=== PATIENT | male | born 1970 | race Caucasian/White ===

== ENCOUNTER 2018-03-05 12:50 | Inpatient (IN) | payer OTHER ==
[2018-03-04 23:00] VITALS: BP 105/62
[~2018-03-05] VITALS: Ht 182.9 cm; Wt 98.9 kg
[~2018-03-05 12:50] MED LIST: LIDOCAINE 2% 100 MG/5 ML SYRINGE. ONE; SUCCINYLCHOLINE 200 MG/10 ML VIAL. ONE
[2018-03-05] MEDS ORDERED: IV NORMAL SALINE 1000ML BAG 1,000 ML IV SCH (13:37)
[2018-03-05] MEDS ORDERED: IOHEXOL 300 MG/ML 100ML VIAL. IV ONE (13:45)
[2018-03-05] MEDS ORDERED: fentaNYL PF VIAL 100 MCG/2 ML VIAL IV ONE (13:45)
[2018-03-05] MEDS ORDERED: FAMOTIDINE 20 MG/2 ML VIAL IVP ONE (13:45)
[2018-03-05] MEDS ORDERED: ONDANSETRON PF 4 MG/2 ML VIAL. IV ONE (13:45)
[2018-03-05 13:59] LABS: BASO % 0 % (0-3); EOS # 0.1 x10^3/uL (0.0-0.7); EOS % 1 % (0-3); HEMATOCRIT 43.4 % (39.0-53.0); LYMPH # 0.9 x10^3/uL (1.0-4.8); LYMPH % 13 % (24-48); MEAN CORPUSCULAR HEMOGLOBIN 31 pg (25-35); MEAN CORPUSCULAR HGB CONC 35 g/dL (31-37); MEAN CORPUSCULAR VOLUME 89 fL (79-100); MONO # 0.5 x10^3/uL (0.0-1.1); MONO % 7 % (0-9); NEUT # 5.7 x10^3uL (1.8-7.7); NEUT % 78 % (31-73); PLATELET COUNT 214 x10^3/uL (140-400); RED BLOOD COUNT 4.86 x10^6/uL (4.30-5.70); RED CELL DISTRIBUTION WIDTH 13.7 % (11.5-14.5); WHITE BLOOD COUNT 7.3 x10^3/uL (4.0-11.0)
[2018-03-05] MEDS ORDERED: CONTRAST GIVEN. MC PRN (14:00)
[2018-03-05 14:13] LABS: CALCIUM 9.3 mg/dL (8.5-10.1); CREATININE 1.1 mg/dL (0.7-1.3); GFR 71.1; POTASSIUM 3.9 mmol/L (3.5-5.1)
[2018-03-05 14:18] LABS: ALBUMIN/GLOBULIN RATIO 1.2 (1.0-1.7); TOTAL BILIRUBIN 1.1 mg/dL (0.2-1.0); TOTAL PROTEIN 7.4 g/dL (6.4-8.2)
--- NOTE | 2018-03-05 14:52 | PHYS DOC ---
Past Medical History Past Medical History: GERD Additional Past Surgical Histo: SHOULDER, RIGHT WRIST, UPPER BACK, NECK Alcohol Use: None Drug Use: None Adult General Chief Complaint Chief Complaint: ABDOMINAL PAIN HPI HPI Patient is a 47 year old male who presents with right upper abdominal pain since November. Patient states that comes and goes and there is no aggravating factors. Patient states that he may be eating just 1 meal a day. Patient states that he's been told in the past that it was constipation and was given milk of magnesia to take and/or Gas-X. Patient states he's had 3 loose stools today already. Patient denies any blood in his vomit or his stool. Patient rates his pain a 10 out of 10 but then after he vomits goes down to 7 out of 10. Patient states that when he vomits that he also gets diaphoretic. Patient states today he had no breakfast but ate 2 bites of a sandwich at lunch and then vomited. Review of Systems Review of Systems Constitutional: Denies fever or chills [] Eyes: Denies change in visual acuity, redness, or eye pain [] HENT: Denies nasal congestion or sore throat [] Respiratory: Denies cough or shortness of breath [] Cardiovascular: No additional information not addressed in HPI [] GI: RUQ abdominal pain, nausea, vomiting. Bloody stools or diarrhea. [] : Denies dysuria or hematuria [] Musculoskeletal: Denies back pain or joint pain [] Integument: Denies rash or skin lesions [] Neurologic: Denies headache, focal weakness or sensory changes [] All other systems were reviewed and found to be within normal limits, except as documented in this note. Current Medications Current Medications Current Medications Medications (Trade) Dose Ordered Sig/Nghia Start Time Stop Time Status Last Admin Dose Admin Famotidine (Pepcid Vial) 20 mg 1X ONCE 03/05/18 13:45 03/05/18 13:46 DC 03/05/18 13:51 20 MG Fentanyl Citrate (Fentanyl 2ml Vial) 50 mcg 1X ONCE 03/05/18 13:45 03/05/18 13:46 DC 03/05/18 13:52 50 MCG Info (CONTRAST GIVEN -- Rx MONITORING) 1 each PRN DAILY PRN 03/05/18 14:00 03/07/18 13:59 Iohexol (Omnipaque 300 Mg/ml) 75 ml 1X ONCE 03/05/18 13:45 03/05/18 13:46 DC 03/05/18 13:45 75 ML Ondansetron HCl (Zofran) 4 mg 1X ONCE 03/05/18 13:45 03/05/18 13:47 DC 03/05/18 13:51 4 MG Sodium Chloride 1,000 ml @ 1,000 mls/hr Q1H 03/05/18 13:37 03/05/18 14:36 DC 03/05/18 13:52 1,000 MLS/HR Allergies Allergies Allergies Coded Allergies Type Severity Reaction Last Updated Verified ranitidine Adverse Reaction Mild headache 03/05/18 Yes Physical Exam Physical Exam Constitutional: Well developed, well nourished, no acute distress, non-toxic appearance. [] HENT: Normocephalic, atraumatic, bilateral external ears normal, oropharynx moist, no oral exudates, nose normal. [] Eyes: PERRLA, EOMI, conjunctiva normal, no discharge. [] Neck: Normal range of motion, no tenderness, supple, no stridor. [] Cardiovascular:Heart rate regular rhythm, no murmur [] Lungs & Thorax: Bilateral breath sounds clear to auscultation [] Abdomen: Bowel sounds normal, soft, no tenderness, no masses, no pulsatile masses. [] Skin: Warm, dry, no erythema, no rash. [] Back: No tenderness, no CVA tenderness. [] Extremities: No tenderness, no cyanosis, no clubbing, ROM intact, no edema. [] Neurologic: Alert and oriented X 3, normal motor function, normal sensory function, no focal deficits noted. [] Psychologic: Affect normal, judgement normal, mood normal. [] Current Patient Data Vital Signs Vital Signs Date Time Temp Pulse Resp B/P (MAP) Pulse Ox O2 Delivery O2 Flow Rate FiO2 03/05/18 16:06 64 15 122/72 (89) 98 Room Air 03/05/18 13:09 98.6 98.6 Lab Values Laboratory Tests Test 03/05/18 13:30 03/05/18 15:09 White Blood Count 7.3 x10^3/uL (4.0-11.0) Red Blood Count 4.86 x10^6/uL (4.30-5.70) Hemoglobin 15.0 g/dL (13.0-17.5) Hematocrit 43.4 % (39.0-53.0) Mean Corpuscular Volume 89 fL (79-100) Mean Corpuscular Hemoglobin 31 pg (25-35) Mean Corpuscular Hemoglobin Concent 35 g/dL (31-37) Red Cell Distribution Width 13.7 % (11.5-14.5) Platelet Count 214 x10^3/uL (140-400) Neutrophils (%) (Auto) 78 % (31-73) H Lymphocytes (%) (Auto) 13 % (24-48) L Monocytes (%) (Auto) 7 % (0-9) Eosinophils (%) (Auto) 1 % (0-3) Basophils (%) (Auto) 0 % (0-3) Neutrophils # (Auto) 5.7 x10^3uL (1.8-7.7) Lymphocytes # (Auto) 0.9 x10^3/uL (1.0-4.8) L Monocytes # (Auto) 0.5 x10^3/uL (0.0-1.1) Eosinophils # (Auto) 0.1 x10^3/uL (0.0-0.7) Basophils # (Auto) 0.0 x10^3/uL (0.0-0.2) Sodium Level 139 mmol/L (136-145) Potassium Level 3.9 mmol/L (3.5-5.1) Chloride Level 104 mmol/L (98-107) Carbon Dioxide Level 27 mmol/L (21-32) Anion Gap 8 (6-14) Blood Urea Nitrogen 12 mg/dL (8-26) Creatinine 1.1 mg/dL (0.7-1.3) Estimated GFR (Cockcroft-Gault) 71.1 BUN/Creatinine Ratio 11 (6-20) Glucose Level 123 mg/dL (70-99) H Calcium Level 9.3 mg/dL (8.5-10.1) Total Bilirubin 1.1 mg/dL (0.2-1.0) H Aspartate Amino Transferase (AST) 113 U/L (15-37) H Alanine Aminotransferase (ALT) 77 U/L (16-63) H Alkaline Phosphatase 106 U/L (46-116) Troponin I Quantitative < 0.017 ng/mL (0.000-0.055) Total Protein 7.4 g/dL (6.4-8.2) Albumin 4.0 g/dL (3.4-5.0) Albumin/Globulin Ratio 1.2 (1.0-1.7) Lipase 164 U/L (73-393) Urine Collection Type Unknown Urine Color Yellow Urine Clarity Clear Urine pH 7.5 Urine Specific [place] 1.015 Urine Protein Negative mg/dL (NEG-TRACE) Urine Glucose (UA) Negative mg/dL (NEG) Urine Ketones (Stick) Negative mg/dL (NEG) Urine Blood Negative (NEG) Urine Nitrite Negative (NEG) Urine Bilirubin Negative (NEG) Urine Urobilinogen Dipstick 1.0 mg/dL (0.2 mg/dL) Urine Leukocyte Esterase Negative (NEG) Urine RBC 0 /HPF (0-2) Urine WBC 0 /HPF (0-4) Urine Squamous Epithelial Cells Occ /LPF Urine Bacteria 0 /HPF (0-FEW) Urine Opiates Screen Neg (NEG) Urine Methadone Screen Neg (NEG) Urine Barbiturates Neg (NEG) Urine Phencyclidine Screen Neg (NEG) Urine Amphetamine/Methamphetamine Neg (NEG) Urine Benzodiazepines Screen Neg (NEG) Urine Cocaine Screen Neg (NEG) Urine Cannabinoids Screen Neg (NEG) Urine Ethyl Alcohol Neg (NEG) Laboratory Tests 03/05/18 13:30 Laboratory Tests 03/05/18 13:30 EKG EKG Sinus rhythm[ with no STEMI Interpretation Time: 1401 Radiology/Procedures Radiology/Procedures Ct Abdomen[] Impressions: [facility] [address] [place] [address] IMAGING REPORT Signed PATIENT: DANNA ECHEVERRIA ACCOUNT: [id number] : 1970 LOCATION: ER AGE: 47 SEX: M EXAM STATUS: REG ER ORD. PHYSICIAN: JERO CHÁVEZ APRN REASON: abdominal pain PROCEDURE: CT ABD PELV W/ IV CONTRST ONLY EXAM: Abdomen and pelvis CT with intravenous contrast. HISTORY: Right-sided abdominal pain. TECHNIQUE: Computed tomographic images of the abdomen and pelvis were obtained following the administration of 75 cc Omnipaque 300 intravenous contrast. Multiplanar reformatting was performed. *One or more of the following individualized dose reduction techniques were utilized for this examination: 1. Automated exposure control. 2. Adjustment of the mA and/or kV according to patient size. 3. Use of iterative reconstruction technique. COMPARISON: None. FINDINGS: Evaluation of the lower thorax demonstrates left greater than right basilar atelectasis. No suspicious hepatic lesion is seen. There is cholelithiasis. The pancreas and spleen are unremarkable. The adrenal glands are unremarkable. There are multiple bilateral renal stones. The largest stone on the right measures 7 mm and the largest stone on the left measures 6 mm. There are prominent bilateral renal pelves and ureters without evidence of an obstructing lesion. The urinary bladder is distended. There is no appendicitis. There is no bowel obstruction. There is colonic diverticulosis. There is no convincing diverticulitis. There is no lymphadenopathy. There is no suspicious osseous lesion. There are multiple endplate Schmorl's nodes. There are multiple benign bone islands. IMPRESSION: 1. Bilateral nephrolithiasis. There are prominent renal collecting systems likely due to a distended urinary bladder. No obstructing lesion is seen. 2. Colonic diverticulosis. 3. Cholelithiasis. Electronically signed by: Maci Sahu MD (03/05/2018 2:56 PM) [facility] DICTATED and SIGNED BY: MACI SAHU MD DATE: 03/05/18 1454 Course & Med Decision Making Course & Med Decision Making Patient is here from senior care with right upper quadrant abdominal pain since November. Patient has been seen several times for this and is told that he has constipation has been taking milk of magnesia. Patient states that nausea and vomiting, and go along with pain and that his pain is relieved by vomiting. Patient states his pain this morning was a 10 out of 10 and then went down to a 7 out of 10 at this time. Patient states it doesn't matter what he eats or drinks. Patient has right upper abdominal tenderness. States only thing he had today was a sandwich which he vomited back up. Patient denies blood in his stools or his vomit. Patient denies urinary symptoms. Patient denies fevers. Patient is receiving a CT of the abdomen. Patient is neurologically intact. Patient received Pepcid IV, 1 bolus of normal saline, IV Zofran, and 50 of fentanyl for pain. Patients US of abdomen is 1. Cholelithiasis. 2. Hepatic steatosis. and 3. 1.2 cm calculus right kidney. General surgery is called, consulted and admitted. 4:30 PM: ER PHYSICIAN ATTENDING NOTE: I have personally seen and examined the patient, and agree with the history, physical exam, and plan, as documented by mid-level provider. Dragon Disclaimer Dragon Disclaimer This electronic medical record was generated, in whole or in part, using a voice recognition dictation system. Departure Departure Impression: Primary Impression: Cholelithiasis Disposition: ADMITTED INPATIENT Admitting Physician: Jasmyn Richards Condition: STABLE Referrals: UNKNOWN PCP NAME (PCP) Problem Qualifiers Primary Impression: Cholelithiasis Cholelithiasis location: gallbladder Cholecystitis presence: without cholecystitis Biliary obstruction: without biliary obstruction Qualified Codes: K80.20 - Calculus of gallbladder without cholecystitis without obstruction JERO CHÁVEZ COMBAT ENGINEER Mar 05, 2018 14:52 VERO SOL MD Mar 05, 2018 16:28
--- NOTE | 2018-03-05 14:59 | RAD ---
EXAM: Abdomen and pelvis CT with intravenous contrast. HISTORY: Right-sided abdominal pain. TECHNIQUE: Computed tomographic images of the abdomen and pelvis were obtained following the administration of 75 cc Omnipaque 300 intravenous contrast. Multiplanar reformatting was performed. *One or more of the following individualized dose reduction techniques were utilized for this examination: 1. Automated exposure control. 2. Adjustment of the mA and/or kV according to patient size. 3. Use of iterative reconstruction technique. COMPARISON: None. FINDINGS: Evaluation of the lower thorax demonstrates left greater than right basilar atelectasis. No suspicious hepatic lesion is seen. There is cholelithiasis. The pancreas and spleen are unremarkable. The adrenal glands are unremarkable. There are multiple bilateral renal stones. The largest stone on the right measures 7 mm and the largest stone on the left measures 6 mm. There are prominent bilateral renal pelves and ureters without evidence of an obstructing lesion. The urinary bladder is distended. There is no appendicitis. There is no bowel obstruction. There is colonic diverticulosis. There is no convincing diverticulitis. There is no lymphadenopathy. There is no suspicious osseous lesion. There are multiple endplate Schmorl's nodes. There are multiple benign bone islands. IMPRESSION: 1. Bilateral nephrolithiasis. There are prominent renal collecting systems likely due to a distended urinary bladder. No obstructing lesion is seen. 2. Colonic diverticulosis. 3. Cholelithiasis. Electronically signed by: Maci Ledesma MD (03/05/2018 2:56 PM) [facility]
[2018-03-05 15:24] LABS: BARBITURATES NEG (NEG); BENZODIAZEPINES NEG (NEG); CANNABINOIDS NEG (NEG); COCAINE NEG (NEG); METHADONE NEG (NEG); OPIATES NEG (NEG); PHENCYCLIDINE NEG (NEG)
[2018-03-05 15:25] LABS: BILIRUBIN,URINE NEGATIVE (NEG); CLARITY,URINE CLEAR; COLOR,URINE YELLOW; NITRITE,URINE NEGATIVE (NEG); PH,URINE 7.5; PROTEIN,URINE NEGATIVE (NEG-TRACE)
[2018-03-05 15:26] LABS: AMPHETAMINE/METHAMPHETAMINE NEG (NEG)
[2018-03-05 15:49] LABS: BACTERIA,URINE 0 /HPF (0-FEW); RBC,URINE 0 /HPF (0-2); SQUAMOUS EPITHELIAL CELL,UR OCC /LPF; WBC,URINE 0 /HPF (0-4)
--- NOTE | 2018-03-05 15:52 | RAD ---
Examination: Ultrasound right upper quadrant abdomen HISTORY: History of right upper quadrant pain COMPARISON: None available FINDINGS: The pancreas is poorly visualized. The aorta, IVC is not well-visualized due to bowel gas. There is increased echogenicity noted throughout the liver likely hepatic steatosis. The right lobe of the liver measures 16.5 cm. Multiple gallstones identified within the gallbladder. The gallbladder wall thickness measures 2.9 mm. The common bile duct measures 4.9 mm in diameter. The right kidney measures 11.6 cm in length. There is a 1.2 cm calculus identified in the right kidney. IMPRESSION: 1. Cholelithiasis. 2. Hepatic steatosis. 2. 1.2 cm calculus right kidney. Electronically signed by: Alex Sunshine MD (03/05/2018 3:49 PM) [id number]
--- NOTE | 2018-03-05 15:53 | EKG ---
[facility] [address] [place] [address] Test Date: 2018-03-05 Test Time: 14:01:04 Pat Name: DANNA ECHEVERRIA Department: Room: Gender: Male Site Monitor: : 1970 Requested By: JERO CHÁVEZ Order Number: [id number] Reading MD: Brendon Shore MD Measurements Intervals [place] Rate: 72 P: 24 VA: 152 QRS: 7 QRSD: 106 T: 29 QT: 382 QTc: 424 Interpretive Statements SINUS RHYTHM Electronically Signed On 03-06-2018 11:26:09 CDT by Brendon Shore MD
[2018-03-05] MEDS ORDERED: ONDANSETRON PF 4 MG/2 ML VIAL. IV PRN (17:00)
[2018-03-05] MEDS: PIPERACILLIN/TAZOBACTAM 3.375 GM in IV NORMAL SALINE 50ML 50 ML IV SCH (17:33)
[2018-03-05] MEDS: IV NORMAL SALINE 1000ML BAG 1,000 ML IV SCH (17:33)
[2018-03-05 19:00] VITALS: BP 106/79
[2018-03-05] MEDS: fentaNYL PF VIAL 100 MCG/2 ML VIAL IV PRN (19:30)
[2018-03-06] VITALS (8 sets, daily range): BP systolic 98–116; BP diastolic 48–78
--- NOTE | 2018-03-06 00:36 | HP ---
ADMIT DATE: 03/05/2018 CHIEF COMPLAINT: Abdominal pain. HISTORY OF PRESENT ILLNESS: The patient is a pleasant 47-year-old male who presents with abdominal pain. He resides at [facility]. Rates his symptoms at 9/10. He has associated nausea. He has been having pain for some time. He started eating just 1 meal a day. He states he has been told he had kidney stones in the past, but not really gallstones. Today, he also had some 3 loose stools. He took some Gasex. We did some imaging here in the ER. He has got gallstones. We are going to admit the patient. We are going to consult General Surgery. I did discuss the case with the ER physician. The patient is being examined on the medical floor where he has 2 correctional officers present currently. PAST MEDICAL HISTORY: Kidney stones. ALLERGIES: None. FAMILY HISTORY: Hypertension. SOCIAL HISTORY: He resides at [facility] for the past 8 years. He gets out in 13 more years. He would like to smoke, but cannot. Does not drink or take drugs currently. MEDICATIONS: Reviewed, please refer to the MRAD. REVIEW OF SYSTEMS: GENERAL: No history of weight change, weakness or fevers. SKIN: No bruising, hair changes or rashes. EYES: No blurred, double or loss of vision. NOSE AND THROAT: No history of nosebleeds, hoarseness or sore throat. HEART: No history of palpitations, chest pain or shortness of breath on exertion. LUNGS: Denies cough, hemoptysis, wheezing or shortness of breath. GASTROINTESTINAL: He complains of abdominal pain. GENITOURINARY: No history of frequency, urgency, hesitancy or nocturia. NEUROLOGIC: Denies history of numbness, tingling, tremor or weakness. PSYCHIATRIC: No history of panic, anxiety or depression. ENDOCRINE: No history of heat or cold intolerance, polyuria or polydipsia. EXTREMITIES: Denies muscle weakness, joint pain, pain on walking or stiffness. PHYSICAL EXAMINATION: VITAL SIGNS: Temperature afebrile, pulse 70, respirations 20, blood pressure 129/60, O2 sat 98% on room air. GENERAL: He is alert, cooperative. He is shackled to the bed, 2 security officers are present. HEART: Normal S1, S2. LUNGS: Clear. ABDOMEN: Soft and tender in the right upper quadrant. EXTREMITIES: Trace edema. SKIN: No rashes. ENDOCRINE: No thyromegaly. LYMPHATICS: No cervical nodes. HEMATOPOIETIC: No bruising. LABORATORY DATA: Hematology is normal. Electrolytes are normal. Drug screen is negative. Urinalysis negative. Ultrasound of the gallbladder is confirming gallstones. ASSESSMENT AND PLAN: Symptomatic gallstones. The patient is being admitted. We will consult General Surgery, suspect to go for a laparoscopic cholecystectomy. For now, p.r.n. narcotics, p.r.n. Zofran, IV fluids, n.p.o. except for small sips of water with home meds, frequent labs. SONIA EDWARDS DO DR: KHRIS/shae JOB#: [id number] / [id number]
[2018-03-06] MEDS ORDERED: CALC200T3 PO (01:11)
[2018-03-06] MEDS ORDERED: LORA10TA68 PO (01:11)
[2018-03-06] MEDS ORDERED: MAGN400O7 PO (01:11)
[2018-03-06] MEDS ORDERED: MELO7.5T5 PO (01:11)
[2018-03-06] MEDS ORDERED: ALLO100T PO (01:11)
[2018-03-06] MEDS ORDERED: BISA-42 PO (01:11)
[2018-03-06] MEDS ORDERED: NORT75CA PO (01:11)
[2018-03-06] MEDS: IV NORMAL SALINE 1000ML BAG 1,000 ML IV SCH ×2 (05:55→13:00)
[2018-03-06] MEDS: PIPERACILLIN/TAZOBACTAM 3.375 GM in IV NORMAL SALINE 50ML 50 ML IV SCH ×6 (05:55→23:58)
--- NOTE | 2018-03-06 06:13 | EKG ---
[facility] [address] [place] [address] Test Date: 2018-03-05 Test Time: 14:28:07 Pat Name: DANNA ECHEVERRIA Department: Room: 424 1 Gender: M Air Technician: : 1970 Requested By: SONIA EDWARDS Order Number: [id number] Reading MD: Brendon Shore MD Measurements Intervals [place] Rate: 138 P: OR: QRS: -90 QRSD: 84 T: 54 QT: 262 QTc: 403 Interpretive Statements ATRIAL FIB WITH RVR Electronically Signed On 03-06-2018 11:28:04 CDT by Brendon Shore MD
[2018-03-06] MEDS: fentaNYL PF VIAL 100 MCG/2 ML VIAL IV PRN ×3 (06:28→15:04)
[2018-03-06] MEDS: IV RINGERS,LACTATED 1000ML 1,000 ML IV SCH ×2 (07:21→10:44)
[2018-03-06] MEDS ORDERED: fentaNYL PF VIAL 100 MCG/2 ML VIAL IV PRN (07:30)
[2018-03-06] MEDS ORDERED: LIDOCAINE 1% PF 2 ML VIAL. ID PRN (07:30)
[2018-03-06] MEDS ORDERED: ONDANSETRON PF 4 MG/2 ML VIAL. IV PRN (07:30)
[2018-03-06] MEDS ORDERED: PROCHLORPERAZINE 10 MG/2 ML VIAL. IV PRN (07:30)
[2018-03-06] MEDS ORDERED: HYDROmorphone 2 MG/ML VIAL IV PRN (07:30)
[2018-03-06] MEDS ORDERED: MORPHINE SULFATE 2 MG/ML VIAL. IV PRN (07:30)
--- NOTE | 2018-03-06 08:03 | PDOC2 ---
SANTOS MUNSON GEOSPATIAL SPECIALIST 03/06/18 0803: CONSULT Date of Consult Date of Consult DATE: 03/06/18 TIME: 07:59 Reason for Consult Reason for Consult: abdominal pain Referring Physician Referring Physician: ER Identification/Chief Complaint Chief Complaint RUQ pain Source Source: Chart review, Patient History of Present Illness Reason for Visit: Reports pain to RUQ since November, worse with eating. Denies radiation to back. Yesterday had subjective fever and chills. Loose stools with laxative use for constipation Past Medical History GI: GERD Past Surgical History Past Surgical History: Other (wrist, shoulder surgery) Family History Family History: Other (noncontributory to current illness ) Social History Quit ALCOHOL: none Drugs: None Current Problem List Problem List Problems Medical Problems: (1) Cholelithiasis Status: Acute Current Medications Current Medications Current Medications Sodium Chloride 1,000 ml @ 1,000 mls/hr Q1H IV Last administered on 03/05/18at 13:52; Start 03/05/18 at 13:37; Stop 03/05/18 at 14:36; Status DC Fentanyl Citrate (Fentanyl 2ml Vial) 50 mcg 1X ONCE IV Last administered on at 13:52; Start 03/05/18 at 13:45; Stop 03/05/18 at 13:46; Status DC Famotidine (Pepcid Vial) 20 mg 1X ONCE IVP Last administered on 03/05/18at 13: 51; Start 03/05/18 at 13:45; Stop 03/05/18 at 13:46; Status DC Iohexol (Omnipaque 300 Mg/ml) 75 ml 1X ONCE IV Last administered on 03/05/18at 13:45; Start 03/05/18 at 13:45; Stop 03/05/18 at 13:46; Status DC Ondansetron HCl (Zofran) 4 mg 1X ONCE IV Last administered on 03/05/18at 13:51 ; Start 03/05/18 at 13:45; Stop 03/05/18 at 13:47; Status DC Info (CONTRAST GIVEN -- Rx MONITORING) 1 each PRN DAILY PRN MC SEE COMMENTS; Start 03/05/18 at 14:00; Stop 03/07/18 at 13:59 Ondansetron HCl (Zofran) 4 mg PRN Q8HRS PRN IV NAUSEA/VOMITING; Start 03/05/18 at 17:00; Stop 03/06/18 at 16:59 Fentanyl Citrate (Fentanyl 2ml Vial) 50 mcg PRN Q2HR PRN IV PAIN Last administered on 03/06/18at 06:28; Start 03/05/18 at 17:00; Stop 03/06/18 at 16:59 Sodium Chloride 1,000 ml @ 100 mls/hr Q10H IV Last administered on 03/06/18at 05:55; Start 03/05/18 at 17:00; Stop 03/06/18 at 16:59 Piperacillin Sod/ Tazobactam Sod 3.375 gm/Sodium Chloride 50 ml @ 100 mls/hr Q6HRS IV Last administered on 03/06/18at 05:55; Start 03/05/18 at 17:15 Ondansetron HCl (Zofran) 4 mg PRN Q6HRS PRN IV NAUSEA/VOMITING; Start 03/06/18 at 07:30; Stop 03/07/18 at 07:29 Fentanyl Citrate (Fentanyl 2ml Vial) 25 mcg PRN Q5MIN PRN IV MILD PAIN; Start 03/06/18 at 07:30; Stop 03/07/18 at 07:29 Fentanyl Citrate (Fentanyl 2ml Vial) 50 mcg PRN Q5MIN PRN IV MODERATE TO SEVERE PAIN; Start 03/06/18 at 07:30; Stop 03/07/18 at 07:29 Morphine Sulfate (Morphine Sulfate) 1 mg PRN Q10MIN PRN IV SEVERE PAIN; Start 03/06/18 at 07:30; Stop 03/07/18 at 07:29 Ringer's Solution 1,000 ml @ 30 mls/hr Q24H IV ; Start 03/06/18 at 07:21; Stop 03/06/18 at 19:20 Lidocaine HCl (Xylocaine-Mpf 1% 2ml Vial) 2 ml PRN 1X PRN ID PRIOR TO IV START ; Start 03/06/18 at 07:30; Stop 03/07/18 at 07:29 Hydromorphone HCl (Dilaudid) 0.5 mg PRN Q10MIN PRN IV SEV PAIN, Second choice; Start 03/06/18 at 07:30; Stop 03/07/18 at 07:29 Prochlorperazine Edisylate (Compazine) 5 mg PACU PRN PRN IV NAUSEA, MRX1; Start 03/06/18 at 07:30; Stop 03/07/18 at 07:29 Active Scripts Active Reported Tums (Calcium Carbonate) 200 Mg Tab.chew 200 Mg PO PRN PRN Milk Of Magnesia (Magnesium Hydroxide) 400 Mg/5 Ml Oral.susp 400 Mg PO PRN Dulcolax (Bisacodyl) 5 Mg Tablet.dr 5 Mg PO PRN DAILY PRN Allopurinol 100 Mg Tablet 1 Tab PO DAILY Claritin (Loratadine) 10 Mg Tablet 1 Tab PO DAILY Mobic (Meloxicam) 7.5 Mg Tablet 1 Tab PO BID Nortriptyline Hcl 75 Mg Capsule 75 Mg PO BID Allergies Allergies: Coded Allergies: ranitidine (Verified Adverse Reaction, Mild, headache, 03/06/18) ROS General: YES: Fatigue; No: Night Sweats PSYCHOLOGICAL ROS: No: Anxiety Eyes: No Blurry vision, No Double vision HEENT: No: Heacaches, Sore Throat Hematological and Lymphatic: No: Bleeding Problems, Blood Clots Respiratory: YES: Shortness of breath (due to acute pain); No: Cough Cardiovascular: No Chest Pain, No Palpitations Gastrointestinal: Yes Other (see hpi) Genitourinary: No Dysuria, No Retention Musculoskeletal: No Joint Pain, No Muscle Pain Neurological: No Impaired Coord/balance, No Numbness/Tingling Skin: No Pruritus, No Rash Physical Exam General: Alert, Oriented X3, Cooperative, No acute distress HEENT: PERRLA, Mucous membr. moist/pink Lungs: Clear to auscultation, Normal air movement Heart: Regular rate, Normal S1, Normal S2, No murmurs Abdomen: Soft, Other (ND, RUQ TTP) Extremities: No clubbing, No cyanosis Skin: No rashes, No breakdown Neuro: Normal gait, Normal speech Psych/Mental Status: Mental status NL, Mood NL MUSCULOSKELETAL: No deformity, No swelling Vitals VITALS Vital Signs Date Time Temp Pulse Resp B/P (MAP) Pulse Ox O2 Delivery O2 Flow Rate FiO2 03/06/18 07:00 18 Room Air 03/06/18 03:00 98.1 65 98/48 (65) 96 98.1 Labs Labs Laboratory Tests Test 03/05/18 13:30 03/05/18 15:09 White Blood Count 7.3 x10^3/uL (4.0-11.0) Red Blood Count 4.86 x10^6/uL (4.30-5.70) Hemoglobin 15.0 g/dL (13.0-17.5) Hematocrit 43.4 % (39.0-53.0) Mean Corpuscular Volume 89 fL (79-100) Mean Corpuscular Hemoglobin 31 pg (25-35) Mean Corpuscular Hemoglobin Concent 35 g/dL (31-37) Red Cell Distribution Width 13.7 % (11.5-14.5) Platelet Count 214 x10^3/uL (140-400) Neutrophils (%) (Auto) 78 % (31-73) Lymphocytes (%) (Auto) 13 % (24-48) Monocytes (%) (Auto) 7 % (0-9) Eosinophils (%) (Auto) 1 % (0-3) Basophils (%) (Auto) 0 % (0-3) Neutrophils # (Auto) 5.7 x10^3uL (1.8-7.7) Lymphocytes # (Auto) 0.9 x10^3/uL (1.0-4.8) Monocytes # (Auto) 0.5 x10^3/uL (0.0-1.1) Eosinophils # (Auto) 0.1 x10^3/uL (0.0-0.7) Basophils # (Auto) 0.0 x10^3/uL (0.0-0.2) Sodium Level 139 mmol/L (136-145) Potassium Level 3.9 mmol/L (3.5-5.1) Chloride Level 104 mmol/L (98-107) Carbon Dioxide Level 27 mmol/L (21-32) Anion Gap 8 (6-14) Blood Urea Nitrogen 12 mg/dL (8-26) Creatinine 1.1 mg/dL (0.7-1.3) Estimated GFR (Cockcroft-Gault) 71.1 BUN/Creatinine Ratio 11 (6-20) Glucose Level 123 mg/dL (70-99) Calcium Level 9.3 mg/dL (8.5-10.1) Total Bilirubin 1.1 mg/dL (0.2-1.0) Aspartate Amino Transf (AST/SGOT) 113 U/L (15-37) Alanine Aminotransferase (ALT/SGPT) 77 U/L (16-63) Alkaline Phosphatase 106 U/L (46-116) Troponin I Quantitative < 0.017 ng/mL (0.000-0.055) Total Protein 7.4 g/dL (6.4-8.2) Albumin 4.0 g/dL (3.4-5.0) Albumin/Globulin Ratio 1.2 (1.0-1.7) Lipase 164 U/L (73-393) Urine Collection Type Unknown Urine Color Yellow Urine Clarity Clear Urine pH 7.5 Urine Specific [place] 1.015 Urine Protein Negative mg/dL (NEG-TRACE) Urine Glucose (UA) Negative mg/dL (NEG) Urine Ketones (Stick) Negative mg/dL (NEG) Urine Blood Negative (NEG) Urine Nitrite Negative (NEG) Urine Bilirubin Negative (NEG) Urine Urobilinogen Dipstick 1.0 mg/dL (0.2 mg/dL) Urine Leukocyte Esterase Negative (NEG) Urine RBC 0 /HPF (0-2) Urine WBC 0 /HPF (0-4) Urine Squamous Epithelial Cells Occ /LPF Urine Bacteria 0 /HPF (0-FEW) Urine Opiates Screen Neg (NEG) Urine Methadone Screen Neg (NEG) Urine Barbiturates Neg (NEG) Urine Phencyclidine Screen Neg (NEG) Urine Amphetamine/Methamphetamine Neg (NEG) Urine Benzodiazepines Screen Neg (NEG) Urine Cocaine Screen Neg (NEG) Urine Cannabinoids Screen Neg (NEG) Urine Ethyl Alcohol Neg (NEG) Laboratory Tests Test 03/05/18 13:30 03/05/18 15:09 White Blood Count 7.3 x10^3/uL (4.0-11.0) Red Blood Count 4.86 x10^6/uL (4.30-5.70) Hemoglobin 15.0 g/dL (13.0-17.5) Hematocrit 43.4 % (39.0-53.0) Mean Corpuscular Volume 89 fL (79-100) Mean Corpuscular Hemoglobin 31 pg (25-35) Mean Corpuscular Hemoglobin Concent 35 g/dL (31-37) Red Cell Distribution Width 13.7 % (11.5-14.5) Platelet Count 214 x10^3/uL (140-400) Neutrophils (%) (Auto) 78 % (31-73) Lymphocytes (%) (Auto) 13 % (24-48) Monocytes (%) (Auto) 7 % (0-9) Eosinophils (%) (Auto) 1 % (0-3) Basophils (%) (Auto) 0 % (0-3) Neutrophils # (Auto) 5.7 x10^3uL (1.8-7.7) Lymphocytes # (Auto) 0.9 x10^3/uL (1.0-4.8) Monocytes # (Auto) 0.5 x10^3/uL (0.0-1.1) Eosinophils # (Auto) 0.1 x10^3/uL (0.0-0.7) Basophils # (Auto) 0.0 x10^3/uL (0.0-0.2) Sodium Level 139 mmol/L (136-145) Potassium Level 3.9 mmol/L (3.5-5.1) Chloride Level 104 mmol/L (98-107) Carbon Dioxide Level 27 mmol/L (21-32) Anion Gap 8 (6-14) Blood Urea Nitrogen 12 mg/dL (8-26) Creatinine 1.1 mg/dL (0.7-1.3) Estimated GFR (Cockcroft-Gault) 71.1 BUN/Creatinine Ratio 11 (6-20) Glucose Level 123 mg/dL (70-99) Calcium Level 9.3 mg/dL (8.5-10.1) Total Bilirubin 1.1 mg/dL (0.2-1.0) Aspartate Amino Transf (AST/SGOT) 113 U/L (15-37) Alanine Aminotransferase (ALT/SGPT) 77 U/L (16-63) Alkaline Phosphatase 106 U/L (46-116) Troponin I Quantitative < 0.017 ng/mL (0.000-0.055) Total Protein 7.4 g/dL (6.4-8.2) Albumin 4.0 g/dL (3.4-5.0) Albumin/Globulin Ratio 1.2 (1.0-1.7) Lipase 164 U/L (73-393) Urine Collection Type Unknown Urine Color Yellow Urine Clarity Clear Urine pH 7.5 Urine Specific [place] 1.015 Urine Protein Negative mg/dL (NEG-TRACE) Urine Glucose (UA) Negative mg/dL (NEG) Urine Ketones (Stick) Negative mg/dL (NEG) Urine Blood Negative (NEG) Urine Nitrite Negative (NEG) Urine Bilirubin Negative (NEG) Urine Urobilinogen Dipstick 1.0 mg/dL (0.2 mg/dL) Urine Leukocyte Esterase Negative (NEG) Urine RBC 0 /HPF (0-2) Urine WBC 0 /HPF (0-4) Urine Squamous Epithelial Cells Occ /LPF Urine Bacteria 0 /HPF (0-FEW) Urine Opiates Screen Neg (NEG) Urine Methadone Screen Neg (NEG) Urine Barbiturates Neg (NEG) Urine Phencyclidine Screen Neg (NEG) Urine Amphetamine/Methamphetamine Neg (NEG) Urine Benzodiazepines Screen Neg (NEG) Urine Cocaine Screen Neg (NEG) Urine Cannabinoids Screen Neg (NEG) Urine Ethyl Alcohol Neg (NEG) Assessment/Plan Assessment/Plan symptomatic cholelithiasis plan lap danna today ROBIN WHITLEY MD 03/06/18 1106: CONSULT Assessment/Plan Assessment/Plan Reviewed; pt seen and examined by myself; 47 year old male with RUQ pain for months, worse after eating, nonradiating, recently with associated nausea/ vomiting; evaluation shows gallstones. PMH/PSH/ROS/SH as above; exam: alert, oriented, no neck masses, lungs clear, heart RR and R, abdomen soft, tender in RUQ, no guarding, ext neg for edema; A/P) RUQ pain, gallstones; recommend lap danna. I reviewed the details and risks of surgery with the patient. He understands and would like to proceed. SANTOS MUNSON APRN Mar 06, 2018 08:03 ROBIN WHITLEY MD Mar 06, 2018 11:06
[2018-03-06] MEDS ORDERED: BUPIVACAINE-EPI 0.5%-1:200000 50 ML VIAL. ONE (11:26)
[2018-03-06] MEDS ORDERED: IOHEXOL 300 MG/ML 100ML VIAL. ONE (11:26)
[2018-03-06] MEDS ORDERED: SURGICEL HEMOSTAT 4X8 EACH. ONE (11:27)
[2018-03-06] MEDS ORDERED: ROCURONIUM 50 MG/5 ML VIAL. ONE (11:58)
[2018-03-06] MEDS ORDERED: fentaNYL PF VIAL 100 MCG/2 ML VIAL ONE (11:58)
[2018-03-06] MEDS ORDERED: GLYCOPYRROLATE 1 MG/5 ML VIAL. ONE (11:59)
[2018-03-06] MEDS ORDERED: SEVOFLURANE 61 TO 120 MINUTES. IH ONE (12:20)
[2018-03-06] MEDS ORDERED: GLUCAGON,HUMAN RECOMBINANT 1 MG/ML VIAL. ONE (12:21)
[2018-03-06] MEDS ORDERED: PROPOFOL 20 ML IV ONE ×2 (12:22→13:48)
[2018-03-06] MEDS ORDERED: KETOROLAC 30 MG/ML INJ FOR OR. INJ ONE (12:22)
[2018-03-06] MEDS ORDERED: ONDANSETRON PF 4 MG/2 ML VIAL. ONE (12:22)
[2018-03-06] MEDS ORDERED: LIDOCAINE 2% PF Vial for OR 5 ML VIAL. ONE (12:22)
[2018-03-06] MEDS ORDERED: DEXAMETHASONE SOD PHOS 20 MG/5 ML VIAL. ONE (12:22)
--- NOTE | 2018-03-06 13:22 | PDOC ---
PROGRESS NOTES Chief Complaint Chief Complaint CC: Abd. pain Biliary Cholic Cholelithiasis History of Present Illness History of Present Illness Pt. seen and examined Pt. in pre-op awaiting surgery VSS Pt's affect good Pt neurologically intact; alert and oriented Vitals Vitals Vital Signs Date Time Temp Pulse Resp B/P (MAP) Pulse Ox O2 Delivery O2 Flow Rate FiO2 03/06/18 07:00 98.1 64 16 102/66 (78) 96 Room Air 98.1 Physical Exam General: Alert, Oriented X3, Cooperative, No acute distress Heart: Regular rate, Normal S1, Normal S2, No murmurs Lungs: Clear Abdomen: Soft, Other (ND, RUQ TTP) Extremities: No clubbing, No cyanosis Skin: No rashes, No breakdown Labs LABS Laboratory Tests Test 03/05/18 13:30 03/05/18 15:09 White Blood Count 7.3 x10^3/uL (4.0-11.0) Red Blood Count 4.86 x10^6/uL (4.30-5.70) Hemoglobin 15.0 g/dL (13.0-17.5) Hematocrit 43.4 % (39.0-53.0) Mean Corpuscular Volume 89 fL (79-100) Mean Corpuscular Hemoglobin 31 pg (25-35) Mean Corpuscular Hemoglobin Concent 35 g/dL (31-37) Red Cell Distribution Width 13.7 % (11.5-14.5) Platelet Count 214 x10^3/uL (140-400) Neutrophils (%) (Auto) 78 % (31-73) Lymphocytes (%) (Auto) 13 % (24-48) Monocytes (%) (Auto) 7 % (0-9) Eosinophils (%) (Auto) 1 % (0-3) Basophils (%) (Auto) 0 % (0-3) Neutrophils # (Auto) 5.7 x10^3uL (1.8-7.7) Lymphocytes # (Auto) 0.9 x10^3/uL (1.0-4.8) Monocytes # (Auto) 0.5 x10^3/uL (0.0-1.1) Eosinophils # (Auto) 0.1 x10^3/uL (0.0-0.7) Basophils # (Auto) 0.0 x10^3/uL (0.0-0.2) Sodium Level 139 mmol/L (136-145) Potassium Level 3.9 mmol/L (3.5-5.1) Chloride Level 104 mmol/L (98-107) Carbon Dioxide Level 27 mmol/L (21-32) Anion Gap 8 (6-14) Blood Urea Nitrogen 12 mg/dL (8-26) Creatinine 1.1 mg/dL (0.7-1.3) Estimated GFR (Cockcroft-Gault) 71.1 BUN/Creatinine Ratio 11 (6-20) Glucose Level 123 mg/dL (70-99) Calcium Level 9.3 mg/dL (8.5-10.1) Total Bilirubin 1.1 mg/dL (0.2-1.0) Aspartate Amino Transf (AST/SGOT) 113 U/L (15-37) Alanine Aminotransferase (ALT/SGPT) 77 U/L (16-63) Alkaline Phosphatase 106 U/L (46-116) Troponin I Quantitative < 0.017 ng/mL (0.000-0.055) Total Protein 7.4 g/dL (6.4-8.2) Albumin 4.0 g/dL (3.4-5.0) Albumin/Globulin Ratio 1.2 (1.0-1.7) Lipase 164 U/L (73-393) Urine Collection Type Unknown Urine Color Yellow Urine Clarity Clear Urine pH 7.5 Urine Specific [place] 1.015 Urine Protein Negative mg/dL (NEG-TRACE) Urine Glucose (UA) Negative mg/dL (NEG) Urine Ketones (Stick) Negative mg/dL (NEG) Urine Blood Negative (NEG) Urine Nitrite Negative (NEG) Urine Bilirubin Negative (NEG) Urine Urobilinogen Dipstick 1.0 mg/dL (0.2 mg/dL) Urine Leukocyte Esterase Negative (NEG) Urine RBC 0 /HPF (0-2) Urine WBC 0 /HPF (0-4) Urine Squamous Epithelial Cells Occ /LPF Urine Bacteria 0 /HPF (0-FEW) Urine Opiates Screen Neg (NEG) Urine Methadone Screen Neg (NEG) Urine Barbiturates Neg (NEG) Urine Phencyclidine Screen Neg (NEG) Urine Amphetamine/Methamphetamine Neg (NEG) Urine Benzodiazepines Screen Neg (NEG) Urine Cocaine Screen Neg (NEG) Urine Cannabinoids Screen Neg (NEG) Urine Ethyl Alcohol Neg (NEG) Review of Systems Review of Systems Beau abd. pain Denies weakness Assessment and Plan Assessmemt and Plan CC: Abd. pain Biliary Cholic Cholelithiasis Assessment: Abd. pain Biliary Cholic Cholelithiasis Plan: Lap danna today Follow up post surgery PT/OT post surgery Monitor labs Continue current diet Comment Review of Relevant I have reviewed the following items awilda (where applicable) has been applied. Labs Laboratory Tests Test 03/05/18 13:30 03/05/18 15:09 White Blood Count 7.3 x10^3/uL (4.0-11.0) Red Blood Count 4.86 x10^6/uL (4.30-5.70) Hemoglobin 15.0 g/dL (13.0-17.5) Hematocrit 43.4 % (39.0-53.0) Mean Corpuscular Volume 89 fL (79-100) Mean Corpuscular Hemoglobin 31 pg (25-35) Mean Corpuscular Hemoglobin Concent 35 g/dL (31-37) Red Cell Distribution Width 13.7 % (11.5-14.5) Platelet Count 214 x10^3/uL (140-400) Neutrophils (%) (Auto) 78 % (31-73) Lymphocytes (%) (Auto) 13 % (24-48) Monocytes (%) (Auto) 7 % (0-9) Eosinophils (%) (Auto) 1 % (0-3) Basophils (%) (Auto) 0 % (0-3) Neutrophils # (Auto) 5.7 x10^3uL (1.8-7.7) Lymphocytes # (Auto) 0.9 x10^3/uL (1.0-4.8) Monocytes # (Auto) 0.5 x10^3/uL (0.0-1.1) Eosinophils # (Auto) 0.1 x10^3/uL (0.0-0.7) Basophils # (Auto) 0.0 x10^3/uL (0.0-0.2) Sodium Level 139 mmol/L (136-145) Potassium Level 3.9 mmol/L (3.5-5.1) Chloride Level 104 mmol/L (98-107) Carbon Dioxide Level 27 mmol/L (21-32) Anion Gap 8 (6-14) Blood Urea Nitrogen 12 mg/dL (8-26) Creatinine 1.1 mg/dL (0.7-1.3) Estimated GFR (Cockcroft-Gault) 71.1 BUN/Creatinine Ratio 11 (6-20) Glucose Level 123 mg/dL (70-99) Calcium Level 9.3 mg/dL (8.5-10.1) Total Bilirubin 1.1 mg/dL (0.2-1.0) Aspartate Amino Transf (AST/SGOT) 113 U/L (15-37) Alanine Aminotransferase (ALT/SGPT) 77 U/L (16-63) Alkaline Phosphatase 106 U/L (46-116) Troponin I Quantitative < 0.017 ng/mL (0.000-0.055) Total Protein 7.4 g/dL (6.4-8.2) Albumin 4.0 g/dL (3.4-5.0) Albumin/Globulin Ratio 1.2 (1.0-1.7) Lipase 164 U/L (73-393) Urine Collection Type Unknown Urine Color Yellow Urine Clarity Clear Urine pH 7.5 Urine Specific [place] 1.015 Urine Protein Negative mg/dL (NEG-TRACE) Urine Glucose (UA) Negative mg/dL (NEG) Urine Ketones (Stick) Negative mg/dL (NEG) Urine Blood Negative (NEG) Urine Nitrite Negative (NEG) Urine Bilirubin Negative (NEG) Urine Urobilinogen Dipstick 1.0 mg/dL (0.2 mg/dL) Urine Leukocyte Esterase Negative (NEG) Urine RBC 0 /HPF (0-2) Urine WBC 0 /HPF (0-4) Urine Squamous Epithelial Cells Occ /LPF Urine Bacteria 0 /HPF (0-FEW) Urine Opiates Screen Neg (NEG) Urine Methadone Screen Neg (NEG) Urine Barbiturates Neg (NEG) Urine Phencyclidine Screen Neg (NEG) Urine Amphetamine/Methamphetamine Neg (NEG) Urine Benzodiazepines Screen Neg (NEG) Urine Cocaine Screen Neg (NEG) Urine Cannabinoids Screen Neg (NEG) Urine Ethyl Alcohol Neg (NEG) Laboratory Tests Test 03/05/18 13:30 03/05/18 15:09 White Blood Count 7.3 x10^3/uL (4.0-11.0) Red Blood Count 4.86 x10^6/uL (4.30-5.70) Hemoglobin 15.0 g/dL (13.0-17.5) Hematocrit 43.4 % (39.0-53.0) Mean Corpuscular Volume 89 fL (79-100) Mean Corpuscular Hemoglobin 31 pg (25-35) Mean Corpuscular Hemoglobin Concent 35 g/dL (31-37) Red Cell Distribution Width 13.7 % (11.5-14.5) Platelet Count 214 x10^3/uL (140-400) Neutrophils (%) (Auto) 78 % (31-73) Lymphocytes (%) (Auto) 13 % (24-48) Monocytes (%) (Auto) 7 % (0-9) Eosinophils (%) (Auto) 1 % (0-3) Basophils (%) (Auto) 0 % (0-3) Neutrophils # (Auto) 5.7 x10^3uL (1.8-7.7) Lymphocytes # (Auto) 0.9 x10^3/uL (1.0-4.8) Monocytes # (Auto) 0.5 x10^3/uL (0.0-1.1) Eosinophils # (Auto) 0.1 x10^3/uL (0.0-0.7) Basophils # (Auto) 0.0 x10^3/uL (0.0-0.2) Sodium Level 139 mmol/L (136-145) Potassium Level 3.9 mmol/L (3.5-5.1) Chloride Level 104 mmol/L (98-107) Carbon Dioxide Level 27 mmol/L (21-32) Anion Gap 8 (6-14) Blood Urea Nitrogen 12 mg/dL (8-26) Creatinine 1.1 mg/dL (0.7-1.3) Estimated GFR (Cockcroft-Gault) 71.1 BUN/Creatinine Ratio 11 (6-20) Glucose Level 123 mg/dL (70-99) Calcium Level 9.3 mg/dL (8.5-10.1) Total Bilirubin 1.1 mg/dL (0.2-1.0) Aspartate Amino Transf (AST/SGOT) 113 U/L (15-37) Alanine Aminotransferase (ALT/SGPT) 77 U/L (16-63) Alkaline Phosphatase 106 U/L (46-116) Troponin I Quantitative < 0.017 ng/mL (0.000-0.055) Total Protein 7.4 g/dL (6.4-8.2) Albumin 4.0 g/dL (3.4-5.0) Albumin/Globulin Ratio 1.2 (1.0-1.7) Lipase 164 U/L (73-393) Urine Collection Type Unknown Urine Color Yellow Urine Clarity Clear Urine pH 7.5 Urine Specific [place] 1.015 Urine Protein Negative mg/dL (NEG-TRACE) Urine Glucose (UA) Negative mg/dL (NEG) Urine Ketones (Stick) Negative mg/dL (NEG) Urine Blood Negative (NEG) Urine Nitrite Negative (NEG) Urine Bilirubin Negative (NEG) Urine Urobilinogen Dipstick 1.0 mg/dL (0.2 mg/dL) Urine Leukocyte Esterase Negative (NEG) Urine RBC 0 /HPF (0-2) Urine WBC 0 /HPF (0-4) Urine Squamous Epithelial Cells Occ /LPF Urine Bacteria 0 /HPF (0-FEW) Urine Opiates Screen Neg (NEG) Urine Methadone Screen Neg (NEG) Urine Barbiturates Neg (NEG) Urine Phencyclidine Screen Neg (NEG) Urine Amphetamine/Methamphetamine Neg (NEG) Urine Benzodiazepines Screen Neg (NEG) Urine Cocaine Screen Neg (NEG) Urine Cannabinoids Screen Neg (NEG) Urine Ethyl Alcohol Neg (NEG) Medications Current Medications Sodium Chloride 1,000 ml @ 1,000 mls/hr Q1H IV Last administered on 03/05/18at 13:52; Start 03/05/18 at 13:37; Stop 03/05/18 at 14:36; Status DC Fentanyl Citrate (Fentanyl 2ml Vial) 50 mcg 1X ONCE IV Last administered on at 13:52; Start 03/05/18 at 13:45; Stop 03/05/18 at 13:46; Status DC Famotidine (Pepcid Vial) 20 mg 1X ONCE IVP Last administered on 03/05/18at 13: 51; Start 03/05/18 at 13:45; Stop 03/05/18 at 13:46; Status DC Iohexol (Omnipaque 300 Mg/ml) 75 ml 1X ONCE IV Last administered on 03/05/18at 13:45; Start 03/05/18 at 13:45; Stop 03/05/18 at 13:46; Status DC Ondansetron HCl (Zofran) 4 mg 1X ONCE IV Last administered on 03/05/18at 13:51 ; Start 03/05/18 at 13:45; Stop 03/05/18 at 13:47; Status DC Info (CONTRAST GIVEN -- Rx MONITORING) 1 each PRN DAILY PRN MC SEE COMMENTS; Start 03/05/18 at 14:00; Stop 03/07/18 at 13:59 Ondansetron HCl (Zofran) 4 mg PRN Q8HRS PRN IV NAUSEA/VOMITING; Start 03/05/18 at 17:00; Stop 03/06/18 at 16:59 Fentanyl Citrate (Fentanyl 2ml Vial) 50 mcg PRN Q2HR PRN IV PAIN Last administered on 03/06/18at 06:28; Start 03/05/18 at 17:00; Stop 03/06/18 at 16:59 Sodium Chloride 1,000 ml @ 100 mls/hr Q10H IV Last administered on 03/06/18at 05:55; Start 03/05/18 at 17:00; Stop 03/06/18 at 16:59 Piperacillin Sod/ Tazobactam Sod 3.375 gm/Sodium Chloride 50 ml @ 100 mls/hr Q6HRS IV Last administered on 03/06/18at 12:15; Start 03/05/18 at 17:15 Ondansetron HCl (Zofran) 4 mg PRN Q6HRS PRN IV NAUSEA/VOMITING; Start 03/06/18 at 07:30; Stop 03/07/18 at 07:29 Fentanyl Citrate (Fentanyl 2ml Vial) 25 mcg PRN Q5MIN PRN IV MILD PAIN; Start 03/06/18 at 07:30; Stop 03/07/18 at 07:29 Fentanyl Citrate (Fentanyl 2ml Vial) 50 mcg PRN Q5MIN PRN IV MODERATE TO SEVERE PAIN; Start 03/06/18 at 07:30; Stop 03/07/18 at 07:29 Morphine Sulfate (Morphine Sulfate) 1 mg PRN Q10MIN PRN IV SEVERE PAIN; Start 03/06/18 at 07:30; Stop 03/07/18 at 07:29 Ringer's Solution 1,000 ml @ 30 mls/hr Q24H IV Last administered on 03/06/18at 10:44; Start 03/06/18 at 07:21; Stop 03/06/18 at 19:20 Lidocaine HCl (Xylocaine-Mpf 1% 2ml Vial) 2 ml PRN 1X PRN ID PRIOR TO IV START ; Start 03/06/18 at 07:30; Stop 03/07/18 at 07:29 Hydromorphone HCl (Dilaudid) 0.5 mg PRN Q10MIN PRN IV SEV PAIN, Second choice; Start 03/06/18 at 07:30; Stop 03/07/18 at 07:29 Prochlorperazine Edisylate (Compazine) 5 mg PACU PRN PRN IV NAUSEA, MRX1; Start 03/06/18 at 07:30; Stop 03/07/18 at 07:29 Rocuronium Tobias (Zemuron) 50 mg STK-MED ONCE .ROUTE ; Start 03/06/18 at 11:58 ; Stop 03/06/18 at 11:59; Status DC Fentanyl Citrate (Fentanyl 2ml Vial) 100 mcg STK-MED ONCE .ROUTE ; Start at 11:58; Stop 03/06/18 at 11:59; Status DC Glycopyrrolate (Robinul) 1 mg STK-MED ONCE .ROUTE ; Start 03/06/18 at 11:59; Stop 03/06/18 at 12:00; Status DC Sevoflurane (Ultane) 60 ml STK-MED ONCE IH ; Start 03/06/18 at 12:20; Stop 03/06 at 12:21; Status DC Dexamethasone Sodium Phosphate (Decadron) 20 mg STK-MED ONCE .ROUTE ; Start at 12:22; Stop 03/06/18 at 12:23; Status DC Propofol 20 ml @ As Directed STK-MED ONCE IV ; Start 03/06/18 at 12:22; Stop at 12:23; Status DC Lidocaine HCl (Lidocaine Pf 2% Vial) 5 ml STK-MED ONCE .ROUTE ; Start 03/06/18 at 12:22; Stop 03/06/18 at 12:23; Status DC Ketorolac Tromethamine (Toradol For Or Only) 30 mg STK-MED ONCE INJ ; Start at 12:22; Stop 03/06/18 at 12:23; Status DC Ondansetron HCl (Zofran) 4 mg STK-MED ONCE .ROUTE ; Start 03/06/18 at 12:22; Stop 03/06/18 at 12:23; Status DC Bupivacaine HCl/ Epinephrine Bitart (Marcaine-Epi 0.5%-1:[id number]) 50 ml STK-MED ONCE .ROUTE ; Start 03/06/18 at 11:26; Stop 03/06/18 at 12:27; Status DC Iohexol (Omnipaque 300 Mg/ml) 100 ml STK-MED ONCE .ROUTE ; Start 03/06/18 at 11: 26; Stop 03/06/18 at 12:27; Status DC Cellulose (Surgicel Hemostat 4x8) 1 each STK-MED ONCE .ROUTE ; Start 03/06/18 at 11:27; Stop 03/06/18 at 12:27; Status DC Active Scripts Active Reported Tums (Calcium Carbonate) 200 Mg Tab.chew 200 Mg PO PRN PRN Milk Of Magnesia (Magnesium Hydroxide) 400 Mg/5 Ml Oral.susp 400 Mg PO PRN Dulcolax (Bisacodyl) 5 Mg Tablet.dr 5 Mg PO PRN DAILY PRN Allopurinol 100 Mg Tablet 1 Tab PO DAILY Claritin (Loratadine) 10 Mg Tablet 1 Tab PO DAILY Mobic (Meloxicam) 7.5 Mg Tablet 1 Tab PO BID Nortriptyline Hcl 75 Mg Capsule 75 Mg PO BID Vitals/I & O Vital Sign - Last 24 Hours 03/05/18 03/05/18 03/05/18 03/05/18 13:52 14:03 15:06 16:06 Pulse 82 70 64 Resp 16 21 20 15 B/P (MAP) 123/73 (90) 129/60 (83) 122/72 (89) Pulse Ox 98 97 98 98 O2 Delivery Room Air Room Air Room Air Room Air 03/05/18 03/05/18 03/05/18 03/05/18 17:06 18:06 19:00 19:30 Temp 98.7 98.7 Pulse 62 56 75 Resp 20 19 20 B/P (MAP) 126/81 (96) 125/74 (91) 106/79 (88) Pulse Ox 97 98 94 O2 Delivery Room Air Room Air Room Air Room Air 03/05/18 03/06/18 03/06/18 03/06/18 20:25 03:00 06:28 07:00 Temp 98.1 98.1 Pulse 65 Resp 18 18 B/P (MAP) 98/48 (65) Pulse Ox 96 O2 Delivery Room Air Room Air Room Air Room Air 03/06/18 07:00 Temp 98.1 98.1 Pulse 64 Resp 16 B/P (MAP) 102/66 (78) Pulse Ox 96 O2 Delivery Room Air Intake and Output 03/05/18 03/05/18 03/06/18 15:00 23:00 07:00 Intake Total 0 ml 1050 ml Balance 0 ml 1050 ml SONIA EDWARDS III DO Mar 06, 2018 13:22
[2018-03-06] MEDS ORDERED: PHENYLEPHRINE in 0.9% NACL PF 1 MG/10 ML SYRINGE. IV ONE (13:35)
--- NOTE | 2018-03-06 13:49 | RAD ---
EXAM: Intraoperative cholangiogram. HISTORY: Cholelithiasis. COMPARISON: None. FINDINGS: 7 fluoroscopic images were obtained during an intraoperative galactogram. The images demonstrate contrast opacification of the biliary tree. There are filling defects within the downstream common bile duct which persist on multiple images, likely due to stones rather than air bubbles. There is no contrast opacification of the small bowel. IMPRESSION: Suspected retained stones within the downstream common bile duct. There is no contrast opacification beyond the ampulla into the small bowel. Electronically signed by: Maci Ledesma MD (03/06/2018 1:46 PM) [facility]
--- NOTE | 2018-03-06 14:13 | PDOC4 ---
Operative Note Operative Note Operative Note: Preoperative Diagnosis: Symptomatic cholelithiasis Postoperative Diagnosis: Same, choledocholithiasis Procedure: Laparoscopic cholecystectomy with intraoperative cholangiogram Surgeons: Gerry Anesthesia: Gen. Estimated Blood Loss: 10 mL Specimen: Gallbladder to pathology Drains: 19 Fr DIRK drain Complications: None Findings: Suspect common duct stones Indications: The patient is a 47 year old male who is been experiencing recurrent upper abdominal pain consistent with biliary colic. Surgical treatment was offered by means of a laparoscopic cholecystectomy. The risks of surgery were discussed which include bleeding, infection, bile duct injury, bile leak, pain, the potential for additional surgeries or procedures. The patient understands and would like to proceed. Description: The patient was taken to the operating room and laid supine on the operating table. General anesthesia was performed. The abdomen was prepped with ChloraPrep and draped in a standard surgical fashion. A small infraumbilical incision was made with a scalpel. The Veress needle was then inserted and a pneumoperitoneum was then created. A 5 mm trocar was then inserted and the laparoscope was introduced. In the upper midabdomen a 5 mm trocar was inserted and in the right upper quadrant two 2.3 mm mini lap graspers were inserted. The gallbladder was retracted cephalad. The cystic duct was dissected free from surrounding tissues. One clip was placed on the duct near the gallbladder junction. An opening was made in the duct and a cholangiocatheter placed within and secured with a clip. Using contrast dye and fluoroscopy an intraoperative cholangiogram was performed. This showed what appeared to be filling defects near the distal part of the common duct. Contrast did not pass into the duodenum. One milligram of glucagon was administered and allowed to pass systemically. With repeated attempts we were not able to identify passage of contrast into the duodenum. The clip and catheter were then withdrawn. Three clips were placed on the cystic duct and it was divided. The cystic artery was then identified, dissected free, doubly clipped and divided as well. The gallbladder was then mobilized away from the liver with cautery. The umbilical 5 millimeter trocar was exchanged for an 11 millimeter trocar. The gallbladder was then placed in an endoscopic bag and extracted at the umbilical trocar site. The fascia there was closed with 0 Vicryl sutures. All blood and irrigation fluid was suctioned and hemostasis was good. The remaining ports were removed and the pneumoperitoneum was relieved. The skin incisions were injected with half percent Marcaine with epinephrine, and all were closed using 4-0 Monocryl suture. Steri-Strips and dressings were then applied. The patient tolerated the procedure well and was sent to the recovery room in stable condition. At the end of the case all counts were correct. ROBIN WHITLEY MD Mar 06, 2018 14:13
--- NOTE | 2018-03-06 14:27 | PDOC2 ---
GI CONSULT Reason For Consult: CBD stones, ERCP HPI: HPI: 47 y/o male who underwent cholecystectomy for symptomatic cholelithiasis today. IOC shows suspected retained stones in CBD. Yesterday, labs included bili 1.1, AST 113, ALT 77, Alk Phos 106. Hepatic steatosis and CBD 4.9mm. H/o GERD - takes Tums. Asked about diarrhea or constipation - "they say I have constipation and give me a gallon and a half of Milk of Magnesia every week." No previous EGD or colonoscopy. No liver or pancreas history. Takes Mobic for wrist and shoulder pain. PMH: PMH: GERD, gout, diverticulosis, nephrolithiasis, right wrist surgery, right shoulder surgery, neck surgery FH: Family History: Cancer (nephew and uncle - "intestinal cancer") Social History: Smoke: Quit ALCOHOL: none Drugs: None ROS: GEN: Denies fevers, chills, sweats HEENT: Denies blurred vision, sore throat CV: Denies chest pain RESP: Denies shortness of air, cough GI: Per HPI : Denies hematuria, dysuria ENDO: Denies weight changes NEURO: Denies confusion, dizziness MSK: Denies weakness, joint pain/swelling SKIN: Denies jaundice, pruritus Vitals: Vitals: Vital Signs Date Time Temp Pulse Resp B/P (MAP) Pulse Ox O2 Delivery O2 Flow Rate FiO2 03/06/18 07:00 98.1 64 16 102/66 (78) 96 Room Air 98.1 Labs: Labs: Laboratory Tests Test 03/05/18 15:09 Urine Collection Type Unknown Urine Color Yellow Urine Clarity Clear Urine pH 7.5 Urine Specific [place] 1.015 Urine Protein Negative mg/dL (NEG-TRACE) Urine Glucose (UA) Negative mg/dL (NEG) Urine Ketones (Stick) Negative mg/dL (NEG) Urine Blood Negative (NEG) Urine Nitrite Negative (NEG) Urine Bilirubin Negative (NEG) Urine Urobilinogen Dipstick 1.0 mg/dL (0.2 mg/dL) Urine Leukocyte Esterase Negative (NEG) Urine RBC 0 /HPF (0-2) Urine WBC 0 /HPF (0-4) Urine Squamous Epithelial Cells Occ /LPF Urine Bacteria 0 /HPF (0-FEW) Urine Opiates Screen Neg (NEG) Urine Methadone Screen Neg (NEG) Urine Barbiturates Neg (NEG) Urine Phencyclidine Screen Neg (NEG) Urine Amphetamine/Methamphetamine Neg (NEG) Urine Benzodiazepines Screen Neg (NEG) Urine Cocaine Screen Neg (NEG) Urine Cannabinoids Screen Neg (NEG) Urine Ethyl Alcohol Neg (NEG) Allergies: Coded Allergies: ranitidine (Verified Adverse Reaction, Mild, headache, 03/06/18) Medications: Current Medications Medications (Trade) Dose Ordered Sig/Nghia Route PRN Reason Start Time Stop Time Status Last Admin Dose Admin Fentanyl Citrate (Fentanyl 2ml Vial) 50 mcg PRN Q2HR PRN IV PAIN 03/05/18 17:00 03/06/18 16:59 03/06/18 06:28 Sodium Chloride 1,000 ml @ 100 mls/hr Q10H IV 03/05/18 17:00 03/06/18 16:59 03/06/18 05:55 Piperacillin Sod/ Tazobactam Sod 3.375 gm/Sodium Chloride 50 ml @ 100 mls/hr Q6HRS IV 03/05/18 17:15 03/06/18 12:15 Ringer's Solution 1,000 ml @ 30 mls/hr Q24H IV 03/06/18 07:21 03/06/18 19:20 03/06/18 10:44 Glucagon (Glucagen) 1 mg STK-MED ONCE .ROUTE 03/06/18 12:21 03/06/18 13:22 DC 03/06/18 13:27 Imaging: Imaging: CT A/P IMPRESSION: 1. Bilateral nephrolithiasis. There are prominent renal collecting systems likely due to a distended urinary bladder. No obstructing lesion is seen. 2. Colonic diverticulosis. 3. Cholelithiasis. RUQ US IMPRESSION: 1. Cholelithiasis. 2. Hepatic steatosis. 2. 1.2 cm calculus right kidney. IOC IMPRESSION: Suspected retained stones within the downstream common bile duct. There is no contrast opacification beyond the ampulla into the small bowel. PE: GEN: NAD, shrugs shoulders and rolls his eyes HEENT: Atraumatic, PERRL LUNGS: CTAB HEART: RRR ABD: quiet, soft, post-op tenderness EXTREMITY: No edema SKIN: No rashes, no jaundice NEURO/PSYCH: A & O 3 A/P: A/P: Cholelithiasis s/p cholecystectomy w/ abnormal IOC Abnormal LFTs Hepatic steatosis GERD - takes Tums Constipation - takes MoM CRC screen - none Diverticulosis NSAID use -- Concern for choledocholithiasis - tentatively plan for ERCP Wed @ 1400. Follow LFTs. Add PPI and Miralax. ALESIA CHANDLER Mar 06, 2018 14:27
[2018-03-06] MEDS ORDERED: POLYETHYLENE GLYCOL 3350 17 GM PACKET. PO PRN (16:00)
[2018-03-06] MEDS: PANTOPRAZOLE 40 MG TABLET.DR. PO SCH (17:31)
[2018-03-06] MEDS: oxyCODONE/APAP 5/325 1 TAB TABLET PO PRN ×2 (17:39→22:13)
[2018-03-07] VITALS (12 sets, daily range): BP systolic 94–145; BP diastolic 52–82
[2018-03-07] MEDS: fentaNYL PF VIAL 100 MCG/2 ML VIAL IV PRN ×6 (05:06→23:15)
[2018-03-07 05:52] LABS: HEMATOCRIT 41.7 % (39.0-53.0); HEMOGLOBIN 14.5 g/dL (13.0-17.5); RED BLOOD COUNT 4.64 x10^6/uL (4.30-5.70); RED CELL DISTRIBUTION WIDTH 13.6 % (11.5-14.5); WHITE BLOOD COUNT 6.5 x10^3/uL (4.0-11.0)
[2018-03-07 06:07] LABS: ALBUMIN 3.4 g/dL (3.4-5.0); CALCIUM 8.8 mg/dL (8.5-10.1); CREATININE 1.1 mg/dL (0.7-1.3); GFR 71.1; POTASSIUM 3.9 mmol/L (3.5-5.1); TOTAL BILIRUBIN 0.6 mg/dL (0.2-1.0); TOTAL PROTEIN 6.8 g/dL (6.4-8.2)
[2018-03-07] MEDS: PIPERACILLIN/TAZOBACTAM 3.375 GM in IV NORMAL SALINE 50ML 50 ML IV SCH ×4 (06:12→23:18)
[2018-03-07 06:25] LABS: PROTHROMBIN TIME PATIENT 13.4 SEC (11.7-14.0)
[2018-03-07] MEDS ORDERED: IV RINGERS,LACTATED 1000ML 1,000 ML IV SCH ×2 (07:00→12:50)
[2018-03-07] MEDS: PANTOPRAZOLE 40 MG TABLET.DR. PO SCH (07:30)
--- NOTE | 2018-03-07 12:17 | PDOC ---
PROGRESS NOTES Subjective Subjective Doing ok, ERCP planned today Objective Objective Vital Signs Date Time Temp Pulse Resp B/P (MAP) Pulse Ox O2 Delivery O2 Flow Rate FiO2 03/07/18 11:00 98.2 68 16 113/71 (85) 95 Room Air 98.2 03/06/18 14:42 10 Intake and Output 03/07/18 07:00 Intake Total 3670 ml Output Total 310 ml Balance 3360 ml Intake Oral 1570 ml IV Total 2100 ml Output Urine Total 300 ml Drainage Total 0 ml Estimated Blood Loss 10 ml # Voids 3 Physical Exam Abdomen: Soft (DIRK serosang) Assessment Assessment Problems Medical Problems: (1) Cholelithiasis Status: Acute Plan Plan of Care ERCP today, DIRK drain can be removed after ducts are clear Comment Review of Relevant I have reviewed the following items awilda (where applicable) has been applied. Labs Laboratory Tests Test 03/05/18 13:30 03/05/18 15:09 03/06/18 02:00 03/07/18 05:00 White Blood Count 7.3 x10^3/uL (4.0-11.0) 6.5 x10^3/uL (4.0-11.0) Red Blood Count 4.86 x10^6/uL (4.30-5.70) 4.64 x10^6/uL (4.30-5.70) Hemoglobin 15.0 g/dL (13.0-17.5) 14.5 g/dL (13.0-17.5) Hematocrit 43.4 % (39.0-53.0) 41.7 % (39.0-53.0) Mean Corpuscular Volume 89 fL (79-100) 90 fL (79-100) Mean Corpuscular Hemoglobin 31 pg (25-35) 31 pg (25-35) Mean Corpuscular Hemoglobin Concent 35 g/dL (31-37) 35 g/dL (31-37) Red Cell Distribution Width 13.7 % (11.5-14.5) 13.6 % (11.5-14.5) Platelet Count 214 x10^3/uL (140-400) 203 x10^3/uL (140-400) Neutrophils (%) (Auto) 78 % (31-73) Lymphocytes (%) (Auto) 13 % (24-48) Monocytes (%) (Auto) 7 % (0-9) Eosinophils (%) (Auto) 1 % (0-3) Basophils (%) (Auto) 0 % (0-3) Neutrophils # (Auto) 5.7 x10^3uL (1.8-7.7) Lymphocytes # (Auto) 0.9 x10^3/uL (1.0-4.8) Monocytes # (Auto) 0.5 x10^3/uL (0.0-1.1) Eosinophils # (Auto) 0.1 x10^3/uL (0.0-0.7) Basophils # (Auto) 0.0 x10^3/uL (0.0-0.2) Sodium Level 139 mmol/L (136-145) 139 mmol/L (136-145) Potassium Level 3.9 mmol/L (3.5-5.1) 3.9 mmol/L (3.5-5.1) Chloride Level 104 mmol/L (98-107) 106 mmol/L (98-107) Carbon Dioxide Level 27 mmol/L (21-32) 29 mmol/L (21-32) Anion Gap 8 (6-14) 4 (6-14) Blood Urea Nitrogen 12 mg/dL (8-26) 9 mg/dL (8-26) Creatinine 1.1 mg/dL (0.7-1.3) 1.1 mg/dL (0.7-1.3) Estimated GFR (Cockcroft-Gault) 71.1 71.1 BUN/Creatinine Ratio 11 (6-20) 8 (6-20) Glucose Level 123 mg/dL (70-99) 118 mg/dL (70-99) Calcium Level 9.3 mg/dL (8.5-10.1) 8.8 mg/dL (8.5-10.1) Total Bilirubin 1.1 mg/dL (0.2-1.0) 0.6 mg/dL (0.2-1.0) Aspartate Amino Transf (AST/SGOT) 113 U/L (15-37) 93 U/L (15-37) Alanine Aminotransferase (ALT/SGPT) 77 U/L (16-63) 186 U/L (16-63) Alkaline Phosphatase 106 U/L (46-116) 123 U/L (46-116) Troponin I Quantitative < 0.017 ng/mL (0.000-0.055) Total Protein 7.4 g/dL (6.4-8.2) 6.8 g/dL (6.4-8.2) Albumin 4.0 g/dL (3.4-5.0) 3.4 g/dL (3.4-5.0) Albumin/Globulin Ratio 1.2 (1.0-1.7) 1.0 (1.0-1.7) Lipase 164 U/L (73-393) Urine Collection Type Unknown Urine Color Yellow Urine Clarity Clear Urine pH 7.5 Urine Specific [place] 1.015 Urine Protein Negative mg/dL (NEG-TRACE) Urine Glucose (UA) Negative mg/dL (NEG) Urine Ketones (Stick) Negative mg/dL (NEG) Urine Blood Negative (NEG) Urine Nitrite Negative (NEG) Urine Bilirubin Negative (NEG) Urine Urobilinogen Dipstick 1.0 mg/dL (0.2 mg/dL) Urine Leukocyte Esterase Negative (NEG) Urine RBC 0 /HPF (0-2) Urine WBC 0 /HPF (0-4) Urine Squamous Epithelial Cells Occ /LPF Urine Bacteria 0 /HPF (0-FEW) Urine Opiates Screen Neg (NEG) Urine Methadone Screen Neg (NEG) Urine Barbiturates Neg (NEG) Urine Phencyclidine Screen Neg (NEG) Urine Amphetamine/Methamphetamine Neg (NEG) Urine Benzodiazepines Screen Neg (NEG) Urine Cocaine Screen Neg (NEG) Urine Cannabinoids Screen Neg (NEG) Urine Ethyl Alcohol Neg (NEG) Nasal Screen MRSA (PCR) Negative (Negative) Prothrombin Time 13.4 SEC (11.7-14.0) Prothromb Time International Ratio 1.1 (0.8-1.1) Laboratory Tests Test 03/07/18 05:00 White Blood Count 6.5 x10^3/uL (4.0-11.0) Red Blood Count 4.64 x10^6/uL (4.30-5.70) Hemoglobin 14.5 g/dL (13.0-17.5) Hematocrit 41.7 % (39.0-53.0) Mean Corpuscular Volume 90 fL (79-100) Mean Corpuscular Hemoglobin 31 pg (25-35) Mean Corpuscular Hemoglobin Concent 35 g/dL (31-37) Red Cell Distribution Width 13.6 % (11.5-14.5) Platelet Count 203 x10^3/uL (140-400) Prothrombin Time 13.4 SEC (11.7-14.0) Prothromb Time International Ratio 1.1 (0.8-1.1) Sodium Level 139 mmol/L (136-145) Potassium Level 3.9 mmol/L (3.5-5.1) Chloride Level 106 mmol/L (98-107) Carbon Dioxide Level 29 mmol/L (21-32) Anion Gap 4 (6-14) Blood Urea Nitrogen 9 mg/dL (8-26) Creatinine 1.1 mg/dL (0.7-1.3) Estimated GFR (Cockcroft-Gault) 71.1 BUN/Creatinine Ratio 8 (6-20) Glucose Level 118 mg/dL (70-99) Calcium Level 8.8 mg/dL (8.5-10.1) Total Bilirubin 0.6 mg/dL (0.2-1.0) Aspartate Amino Transf (AST/SGOT) 93 U/L (15-37) Alanine Aminotransferase (ALT/SGPT) 186 U/L (16-63) Alkaline Phosphatase 123 U/L (46-116) Total Protein 6.8 g/dL (6.4-8.2) Albumin 3.4 g/dL (3.4-5.0) Albumin/Globulin Ratio 1.0 (1.0-1.7) Medications Current Medications Sodium Chloride 1,000 ml @ 1,000 mls/hr Q1H IV Last administered on 03/05/18 13:52; Start 03/05/18 at 13:37; Stop 03/05/18 at 14:36; Status DC Fentanyl Citrate (Fentanyl 2ml Vial) 50 mcg 1X ONCE IV Last administered on 13:52; Start 03/05/18 at 13:45; Stop 03/05/18 at 13:46; Status DC Famotidine (Pepcid Vial) 20 mg 1X ONCE IVP Last administered on 03/05/18 13: 51; Start 03/05/18 at 13:45; Stop 03/05/18 at 13:46; Status DC Iohexol (Omnipaque 300 Mg/ml) 75 ml 1X ONCE IV Last administered on 03/05/18at 13:45; Start 03/05/18 at 13:45; Stop 03/05/18 at 13:46; Status DC Ondansetron HCl (Zofran) 4 mg 1X ONCE IV Last administered on 03/05/18at 13:51 ; Start 03/05/18 at 13:45; Stop 03/05/18 at 13:47; Status DC Info (CONTRAST GIVEN -- Rx MONITORING) 1 each PRN DAILY PRN MC SEE COMMENTS Last administered on 03/06/18at 13:16; Start 03/05/18 at 14:00; Stop 03/07/18 at 13:59 Ondansetron HCl (Zofran) 4 mg PRN Q8HRS PRN IV NAUSEA/VOMITING; Start 03/05/18 at 17:00; Stop 03/06/18 at 16:59; Status DC Fentanyl Citrate (Fentanyl 2ml Vial) 50 mcg PRN Q2HR PRN IV PAIN Last administered on 03/06/18at 06:28; Start 03/05/18 at 17:00; Stop 03/06/18 at 16:59 ; Status DC Sodium Chloride 1,000 ml @ 100 mls/hr Q10H IV Last administered on 03/06/18at 05:55; Start 03/05/18 at 17:00; Stop 03/06/18 at 16:59; Status DC Piperacillin Sod/ Tazobactam Sod 3.375 gm/Sodium Chloride 50 ml @ 100 mls/hr Q6HRS IV Last administered on 03/07/18at 11:51; Start 03/05/18 at 17:15 Ondansetron HCl (Zofran) 4 mg PRN Q6HRS PRN IV NAUSEA/VOMITING; Start 03/06/18 at 07:30; Stop 03/07/18 at 07:29; Status DC Fentanyl Citrate (Fentanyl 2ml Vial) 25 mcg PRN Q5MIN PRN IV MILD PAIN; Start 03/06/18 at 07:30; Stop 03/07/18 at 07:29; Status DC Fentanyl Citrate (Fentanyl 2ml Vial) 50 mcg PRN Q5MIN PRN IV MODERATE TO SEVERE PAIN Last administered on 03/06/18at 15:04; Start 03/06/18 at 07:30; Stop 03/07/18 at 07:29; Status DC Morphine Sulfate (Morphine Sulfate) 1 mg PRN Q10MIN PRN IV SEVERE PAIN; Start 03/06/18 at 07:30; Stop 03/07/18 at 07:29; Status DC Ringer's Solution 1,000 ml @ 30 mls/hr Q24H IV Last administered on 03/06/18at 10:44; Start 03/06/18 at 07:21; Stop 03/06/18 at 19:20; Status DC Lidocaine HCl (Xylocaine-Mpf 1% 2ml Vial) 2 ml PRN 1X PRN ID PRIOR TO IV START ; Start 03/06/18 at 07:30; Stop 03/07/18 at 07:29; Status DC Hydromorphone HCl (Dilaudid) 0.5 mg PRN Q10MIN PRN IV SEV PAIN, Second choice; Start 03/06/18 at 07:30; Stop 03/07/18 at 07:29; Status DC Prochlorperazine Edisylate (Compazine) 5 mg PACU PRN PRN IV NAUSEA, MRX1; Start 03/06/18 at 07:30; Stop 03/07/18 at 07:29; Status DC Rocuronium [place] (Zemuron) 50 mg STK-MED ONCE .ROUTE ; Start 03/06/18 at 11:58 ; Stop 03/06/18 at 11:59; Status DC Fentanyl Citrate (Fentanyl 2ml Vial) 100 mcg STK-MED ONCE .ROUTE ; Start at 11:58; Stop 03/06/18 at 11:59; Status DC Glycopyrrolate (Robinul) 1 mg STK-MED ONCE .ROUTE ; Start 03/06/18 at 11:59; Stop 03/06/18 at 12:00; Status DC Sevoflurane (Ultane) 60 ml STK-MED ONCE IH ; Start 03/06/18 at 12:20; Stop 03/06 at 12:21; Status DC Dexamethasone Sodium Phosphate (Decadron) 20 mg STK-MED ONCE .ROUTE ; Start at 12:22; Stop 03/06/18 at 12:23; Status DC Propofol 20 ml @ As Directed STK-MED ONCE IV ; Start 03/06/18 at 12:22; Stop at 12:23; Status DC Lidocaine HCl (Lidocaine Pf 2% Vial) 5 ml STK-MED ONCE .ROUTE ; Start 03/06/18 at 12:22; Stop 03/06/18 at 12:23; Status DC Ketorolac Tromethamine (Toradol For Or Only) 30 mg STK-MED ONCE INJ ; Start at 12:22; Stop 03/06/18 at 12:23; Status DC Ondansetron HCl (Zofran) 4 mg STK-MED ONCE .ROUTE ; Start 03/06/18 at 12:22; Stop 03/06/18 at 12:23; Status DC Bupivacaine HCl/ Epinephrine Bitart (Marcaine-Epi 0.5%-1:[id number]) 50 ml STK-MED ONCE .ROUTE ; Start 03/06/18 at 11:26; Stop 03/06/18 at 12:27; Status DC Iohexol (Omnipaque 300 Mg/ml) 100 ml STK-MED ONCE .ROUTE ; Start 03/06/18 at 11: 26; Stop 03/06/18 at 12:27; Status DC Cellulose (Surgicel Hemostat 4x8) 1 each STK-MED ONCE .ROUTE ; Start 03/06/18 at 11:27; Stop 03/06/18 at 12:27; Status DC Glucagon (Glucagen) 1 mg STK-MED ONCE .ROUTE Last administered on 03/06/18at 13: 27; Start 03/06/18 at 12:21; Stop 03/06/18 at 13:22; Status DC Phenylephrine HCl (PHENYLEPHRINE in 0.9% NACL PF) 1 mg STK-MED ONCE IV ; Start 03/06/18 at 13:35; Stop 03/06/18 at 13:36; Status DC Propofol 20 ml @ As Directed STK-MED ONCE IV ; Start 03/06/18 at 13:48; Stop at 13:49; Status DC Oxycodone/ Acetaminophen (Percocet 5/325) 1 tab PRN Q4HRS PRN PO PAIN MILD Last administered on 03/06/18at 17:39; Start 03/06/18 at 14:15 Oxycodone/ Acetaminophen (Percocet 5/325) 2 tab PRN Q4HRS PRN PO PAIN MODERATE TO SEVERE Last administered on 03/06/18at 22:13; Start 03/06/18 at 14:15 Polyethylene Glycol (miraLAX PACKET) 17 gm PRN DAILY PRN PO CONSTIPATION; Start 03/06/18 at 16:00 Pantoprazole Sodium (Protonix) 40 mg DAILYAC PO Last administered on 03/06/18at 17:31; Start 03/06/18 at 16:30 Ringer's Solution 1,000 ml @ 50 mls/hr Q20H IV ; Start 03/07/18 at 07:00; Stop 03/07/18 at 18:59 Fentanyl Citrate (Fentanyl 2ml Vial) 50 mcg PRN Q2HR PRN IV PAIN Last administered on 03/07/18at 08:35; Start 03/07/18 at 05:00 Active Scripts Active Reported Tums (Calcium Carbonate) 200 Mg Tab.chew 200 Mg PO PRN PRN Milk Of Magnesia (Magnesium Hydroxide) 400 Mg/5 Ml Oral.susp 400 Mg PO PRN Dulcolax (Bisacodyl) 5 Mg Tablet.dr 5 Mg PO PRN DAILY PRN Allopurinol 100 Mg Tablet 1 Tab PO DAILY Claritin (Loratadine) 10 Mg Tablet 1 Tab PO DAILY Mobic (Meloxicam) 7.5 Mg Tablet 1 Tab PO BID Nortriptyline Hcl 75 Mg Capsule 75 Mg PO BID Vitals/I & O Vital Sign - Last 24 Hours 03/06/18 03/06/18 03/06/18 03/06/18 14:13 14:13 14:28 14:42 Temp 97.5 97.5 Pulse 56 56 Resp 14 14 B/P (MAP) 91/49 90/52 Pulse Ox 100 99 O2 Delivery Mask Simple Mask Simple Mask Mask O2 Flow Rate 10 10 10 10 03/06/18 03/06/18 03/06/18 03/06/18 14:43 14:58 14:59 15:04 Temp 98.0 98.0 Pulse 58 58 Resp 14 14 14 14 B/P (MAP) 109/67 117/73 Pulse Ox 96 93 94 93 O2 Delivery Room Air Room Air Room Air Room Air 03/06/18 03/06/18 03/06/18 03/06/18 15:15 15:30 15:45 16:06 Temp 97.8 98.2 97.8 98.2 Pulse 56 59 Resp 18 16 B/P (MAP) 113/65 (81) 107/66 (80) 116/64 (81) 109/60 (76) Pulse Ox 95 96 O2 Delivery Room Air Room Air 03/06/18 03/06/18 03/06/18 03/06/18 17:39 18:40 19:00 20:20 Temp 98.0 98.0 Pulse 62 Resp 18 17 18 B/P (MAP) 100/78 (85) Pulse Ox 96 96 96 O2 Delivery Room Air Room Air Room Air Room Air 03/06/18 03/06/18 03/06/18 03/07/18 22:13 23:00 23:20 03:00 Temp 97.7 97.6 97.7 97.6 Pulse 65 64 Resp 16 18 16 18 B/P (MAP) 100/62 (75) 94/52 (66) Pulse Ox 97 95 O2 Delivery Room Air Room Air Room Air Room Air 03/07/18 03/07/18 03/07/18 03/07/18 05:06 07:00 08:30 08:35 Temp 96.8 96.8 Pulse 61 Resp 16 16 17 B/P (MAP) 117/72 (87) Pulse Ox 95 96 96 O2 Delivery Room Air Room Air Room Air Room Air 03/07/18 03/07/18 09:10 11:00 Temp 98.2 98.2 Pulse 68 Resp 17 16 B/P (MAP) 113/71 (85) Pulse Ox 96 95 O2 Delivery Room Air Room Air Intake and Output 03/06/18 03/06/18 03/07/18 15:00 23:00 07:00 Intake Total 1000 ml 1570 ml 1100 ml Output Total 310 ml 0 ml Balance 690 ml 1570 ml 1100 ml ROBIN WHITLEY MD Mar 07, 2018 12:17
[2018-03-07] MEDS ORDERED: IOHEXOL 300 MG/ML 100ML VIAL. ONE (12:38)
[2018-03-07] MEDS ORDERED: fentaNYL PF VIAL 100 MCG/2 ML VIAL IV PRN ×2 (13:00)
[2018-03-07] MEDS ORDERED: LIDOCAINE 1% PF 2 ML VIAL. ID PRN (13:00)
[2018-03-07] MEDS ORDERED: MORPHINE SULFATE 2 MG/ML VIAL. IV PRN (13:00)
[2018-03-07] MEDS ORDERED: HYDROmorphone 2 MG/ML VIAL IV PRN (13:00)
[2018-03-07] MEDS ORDERED: ONDANSETRON PF 4 MG/2 ML VIAL. IV PRN (13:00)
[2018-03-07] MEDS ORDERED: PROCHLORPERAZINE 10 MG/2 ML VIAL. IV PRN (13:00)
--- NOTE | 2018-03-07 15:36 | RAD ---
ERCP, 03/07/2018: HISTORY: Choledocholithiasis 6 spot films from an ERCP performed by Dr. Ma are presented for review. 1 minute and 54 seconds of fluoroscopy time was utilized. The biliary tree was partially opacified via an endoscopically placed cannula. On images 4 and 5 there is a filling defect in the distal duct compatible with a common duct calculus. Reportedly a sphincterotomy was performed with balloon sweeping of the duct and stone removal. No definite residual common duct filling defect is seen on the final image. Electronically signed by: Saúl Santiago MD (03/07/2018 3:33 PM) [facility]
[2018-03-07] MEDS ORDERED: CALCIUM CARBONATE 500 MG TAB.CHEW PO PRN (20:30)
[2018-03-07] MEDS ORDERED: MAG HYDROX/ALUMINUM HYD/SIMETH 30 ML ORAL.SUSP PO PRN (20:30)
[2018-03-07] MEDS ORDERED: diphenhydrAMINE HCL 25 MG CAPSULE PO PRN (20:30)
[2018-03-07] MEDS: LIDO:MAALOX 1:1 20 ML SINGLE DOSE. SWSW ONE ×2 (20:33→21:00)
[2018-03-07] MEDS: PROCHLORPERAZINE 10 MG/2 ML VIAL. IV PRN (20:42)
[2018-03-07] MEDS: IV NORMAL SALINE 1000ML BAG 1,000 ML IV SCH (21:00)
[2018-03-07 21:37] LABS: HEMATOCRIT 42.5 % (39.0-53.0); HEMOGLOBIN 14.8 g/dL (13.0-17.5)
[2018-03-07] MEDS: ONDANSETRON PF 4 MG/2 ML VIAL. IV PRN (23:15)
[2018-03-08] MEDS: fentaNYL PF VIAL 100 MCG/2 ML VIAL IV PRN ×9 (02:13→23:51)
[2018-03-08 03:00] VITALS: BP 131/85
[2018-03-08 05:37] LABS: BASO % 0 % (0-3); EOS % 0 % (0-3); HEMATOCRIT 42.3 % (39.0-53.0); HEMOGLOBIN 14.7 g/dL (13.0-17.5); LYMPH % 14 % (24-48); MEAN CORPUSCULAR HEMOGLOBIN 31 pg (25-35); MEAN CORPUSCULAR HGB CONC 35 g/dL (31-37); MEAN CORPUSCULAR VOLUME 90 fL (79-100); MONO # 0.5 x10^3/uL (0.0-1.1); MONO % 8 % (0-9); NEUT # 5.5 x10^3uL (1.8-7.7); NEUT % 78 % (31-73); PLATELET COUNT 211 x10^3/uL (140-400); RED BLOOD COUNT 4.72 x10^6/uL (4.30-5.70); RED CELL DISTRIBUTION WIDTH 13.6 % (11.5-14.5)
[2018-03-08] MEDS: PIPERACILLIN/TAZOBACTAM 3.375 GM in IV NORMAL SALINE 50ML 50 ML IV SCH ×4 (05:49→23:50)
[2018-03-08] MEDS: IV NORMAL SALINE 1000ML BAG 1,000 ML IV SCH ×2 (05:49→17:44)
[2018-03-08 06:10] LABS: ALBUMIN 3.5 g/dL (3.4-5.0); CALCIUM 8.6 mg/dL (8.5-10.1); CREATININE 1.1 mg/dL (0.7-1.3); GFR 71.1; POTASSIUM 3.6 mmol/L (3.5-5.1); TOTAL BILIRUBIN 2.8 mg/dL (0.2-1.0)
[2018-03-08 07:00] VITALS: BP 143/83
[2018-03-08] MEDS: PANTOPRAZOLE 40 MG TABLET.DR. PO SCH (07:30)
[2018-03-08] MEDS: ONDANSETRON PF 4 MG/2 ML VIAL. IV PRN ×2 (07:45→16:48)
--- NOTE | 2018-03-08 08:43 | PDOC ---
SANTOS MUNSON RELATIONSHIP SPECIALIST 03/08/18 0843: SURGICAL PROGRESS NOTE Subjective significant upper abdominal pain nausea Vital Signs Vital Signs Date Time Temp Pulse Resp B/P (MAP) Pulse Ox O2 Delivery O2 Flow Rate FiO2 03/08/18 07:45 Room Air 03/08/18 07:00 98.7 77 18 143/83 (103) 96 98.7 03/07/18 15:25 10 I&O Intake and Output 03/08/18 07:00 Intake Total 3400 ml Output Total 50 ml Balance 3350 ml Intake Oral 0 ml IV Total 2000 ml Other 1400 ml Output Urine Total 0 ml Drainage Total 50 ml # Voids 4 General: Alert, Oriented X3, Cooperative, No acute distress Abdomen: Soft, Other (TTP across upper abdomen, dariusz serosang) Labs Laboratory Tests Test 03/07/18 05:00 03/07/18 20:14 03/07/18 21:25 03/08/18 04:00 White Blood Count 6.5 x10^3/uL (4.0-11.0) 7.0 x10^3/uL (4.0-11.0) Red Blood Count 4.64 x10^6/uL (4.30-5.70) 4.72 x10^6/uL (4.30-5.70) Hemoglobin 14.5 g/dL (13.0-17.5) 14.8 g/dL (13.0-17.5) 14.7 g/dL (13.0-17.5) Hematocrit 41.7 % (39.0-53.0) 42.5 % (39.0-53.0) 42.3 % (39.0-53.0) Mean Corpuscular Volume 90 fL (79-100) 90 fL (79-100) Mean Corpuscular Hemoglobin 31 pg (25-35) 31 pg (25-35) Mean Corpuscular Hemoglobin Concent 35 g/dL (31-37) 35 g/dL (31-37) Red Cell Distribution Width 13.6 % (11.5-14.5) 13.6 % (11.5-14.5) Platelet Count 203 x10^3/uL (140-400) 211 x10^3/uL (140-400) Prothrombin Time 13.4 SEC (11.7-14.0) Prothromb Time International Ratio 1.1 (0.8-1.1) Sodium Level 139 mmol/L (136-145) 141 mmol/L (136-145) Potassium Level 3.9 mmol/L (3.5-5.1) 3.6 mmol/L (3.5-5.1) Chloride Level 106 mmol/L (98-107) 105 mmol/L (98-107) Carbon Dioxide Level 29 mmol/L (21-32) 27 mmol/L (21-32) Anion Gap 4 (6-14) 9 (6-14) Blood Urea Nitrogen 9 mg/dL (8-26) 11 mg/dL (8-26) Creatinine 1.1 mg/dL (0.7-1.3) 1.1 mg/dL (0.7-1.3) Estimated GFR (Cockcroft-Gault) 71.1 71.1 BUN/Creatinine Ratio 8 (6-20) 10 (6-20) Glucose Level 118 mg/dL (70-99) 109 mg/dL (70-99) Calcium Level 8.8 mg/dL (8.5-10.1) 8.6 mg/dL (8.5-10.1) Total Bilirubin 0.6 mg/dL (0.2-1.0) 2.8 mg/dL (0.2-1.0) Aspartate Amino Transf (AST/SGOT) 93 U/L (15-37) 388 U/L (15-37) Alanine Aminotransferase (ALT/SGPT) 186 U/L (16-63) 375 U/L (16-63) Alkaline Phosphatase 123 U/L (46-116) 214 U/L (46-116) Total Protein 6.8 g/dL (6.4-8.2) 7.0 g/dL (6.4-8.2) Albumin 3.4 g/dL (3.4-5.0) 3.5 g/dL (3.4-5.0) Albumin/Globulin Ratio 1.0 (1.0-1.7) 1.0 (1.0-1.7) Glucose (Fingerstick) 126 mg/dL (70-99) Neutrophils (%) (Auto) 78 % (31-73) Lymphocytes (%) (Auto) 14 % (24-48) Monocytes (%) (Auto) 8 % (0-9) Eosinophils (%) (Auto) 0 % (0-3) Basophils (%) (Auto) 0 % (0-3) Neutrophils # (Auto) 5.5 x10^3uL (1.8-7.7) Lymphocytes # (Auto) 1.0 x10^3/uL (1.0-4.8) Monocytes # (Auto) 0.5 x10^3/uL (0.0-1.1) Eosinophils # (Auto) 0.0 x10^3/uL (0.0-0.7) Basophils # (Auto) 0.0 x10^3/uL (0.0-0.2) Amylase Level 839 U/L (25-115) Lipase 5982 U/L (73-393) Laboratory Tests Test 03/07/18 20:14 03/07/18 21:25 03/08/18 04:00 Glucose (Fingerstick) 126 mg/dL (70-99) Hemoglobin 14.8 g/dL (13.0-17.5) 14.7 g/dL (13.0-17.5) Hematocrit 42.5 % (39.0-53.0) 42.3 % (39.0-53.0) White Blood Count 7.0 x10^3/uL (4.0-11.0) Red Blood Count 4.72 x10^6/uL (4.30-5.70) Mean Corpuscular Volume 90 fL (79-100) Mean Corpuscular Hemoglobin 31 pg (25-35) Mean Corpuscular Hemoglobin Concent 35 g/dL (31-37) Red Cell Distribution Width 13.6 % (11.5-14.5) Platelet Count 211 x10^3/uL (140-400) Neutrophils (%) (Auto) 78 % (31-73) Lymphocytes (%) (Auto) 14 % (24-48) Monocytes (%) (Auto) 8 % (0-9) Eosinophils (%) (Auto) 0 % (0-3) Basophils (%) (Auto) 0 % (0-3) Neutrophils # (Auto) 5.5 x10^3uL (1.8-7.7) Lymphocytes # (Auto) 1.0 x10^3/uL (1.0-4.8) Monocytes # (Auto) 0.5 x10^3/uL (0.0-1.1) Eosinophils # (Auto) 0.0 x10^3/uL (0.0-0.7) Basophils # (Auto) 0.0 x10^3/uL (0.0-0.2) Sodium Level 141 mmol/L (136-145) Potassium Level 3.6 mmol/L (3.5-5.1) Chloride Level 105 mmol/L (98-107) Carbon Dioxide Level 27 mmol/L (21-32) Anion Gap 9 (6-14) Blood Urea Nitrogen 11 mg/dL (8-26) Creatinine 1.1 mg/dL (0.7-1.3) Estimated GFR (Cockcroft-Gault) 71.1 BUN/Creatinine Ratio 10 (6-20) Glucose Level 109 mg/dL (70-99) Calcium Level 8.6 mg/dL (8.5-10.1) Total Bilirubin 2.8 mg/dL (0.2-1.0) Aspartate Amino Transf (AST/SGOT) 388 U/L (15-37) Alanine Aminotransferase (ALT/SGPT) 375 U/L (16-63) Alkaline Phosphatase 214 U/L (46-116) Total Protein 7.0 g/dL (6.4-8.2) Albumin 3.5 g/dL (3.4-5.0) Albumin/Globulin Ratio 1.0 (1.0-1.7) Amylase Level 839 U/L (25-115) Lipase 5982 U/L (73-393) Problem List Problems Medical Problems: (1) Cholelithiasis Status: Acute Assessment/Plan s/p danna, ERCP noted pancreatitis, lipse >5000, lfts elevated NPO, IV fluidf hydration, pain control ROBIN WHITLEY MD 03/08/18 1242: SURGICAL PROGRESS NOTE Assessment/Plan Reviewed, agree with above SANTOS MUNSON APRN Mar 08, 2018 08:43 ROBIN WHITLEY MD Mar 08, 2018 12:42
--- NOTE | 2018-03-08 09:58 | PDOC ---
Subjective: Subjective: 04/18 pain - periumbilical to DIRK drain. Has not vomited today, no bleeding today. Objective: Objective: Reviewed chart, events of last night noted. Tmax 99.3, HR 77. D/w Kenia/surgery. Vital Signs: Vital Signs Date Time Temp Pulse Resp B/P (MAP) Pulse Ox O2 Delivery O2 Flow Rate FiO2 03/08/18 07:45 Room Air 03/08/18 07:00 98.7 77 18 143/83 (103) 96 98.7 03/07/18 15:25 10 Labs: Laboratory Tests Test 03/07/18 20:14 03/07/18 21:25 03/08/18 04:00 Glucose (Fingerstick) 126 mg/dL Hemoglobin 14.8 g/dL 14.7 g/dL Hematocrit 42.5 % 42.3 % White Blood Count 7.0 x10^3/uL Red Blood Count 4.72 x10^6/uL Mean Corpuscular Volume 90 fL Mean Corpuscular Hemoglobin 31 pg Mean Corpuscular Hemoglobin Concent 35 g/dL Red Cell Distribution Width 13.6 % Platelet Count 211 x10^3/uL Neutrophils (%) (Auto) 78 % Lymphocytes (%) (Auto) 14 % Monocytes (%) (Auto) 8 % Eosinophils (%) (Auto) 0 % Basophils (%) (Auto) 0 % Neutrophils # (Auto) 5.5 x10^3uL Lymphocytes # (Auto) 1.0 x10^3/uL Monocytes # (Auto) 0.5 x10^3/uL Eosinophils # (Auto) 0.0 x10^3/uL Basophils # (Auto) 0.0 x10^3/uL Sodium Level 141 mmol/L Potassium Level 3.6 mmol/L Chloride Level 105 mmol/L Carbon Dioxide Level 27 mmol/L Anion Gap 9 Blood Urea Nitrogen 11 mg/dL Creatinine 1.1 mg/dL Estimated GFR (Cockcroft-Gault) 71.1 BUN/Creatinine Ratio 10 Glucose Level 109 mg/dL Calcium Level 8.6 mg/dL Total Bilirubin 2.8 mg/dL Aspartate Amino Transf (AST/SGOT) 388 U/L Alanine Aminotransferase (ALT/SGPT) 375 U/L Alkaline Phosphatase 214 U/L Total Protein 7.0 g/dL Albumin 3.5 g/dL Albumin/Globulin Ratio 1.0 Amylase Level 839 U/L Lipase 5982 U/L PE: GEN: a little shaky LUNGS: CTAB HEART: RRR ABD: BS quiet, some distention, exam limited due to his pain NEURO/PSYCH: A & O 3 A/P: Choledocholithiasis /p ERCP Abd pain, n/v Elevated LFTs and lipase -- Post ERCP pancreatitis. Supportive care - pain control, IVF. On atbx. Monitor labs. Re: "vomiting blood" - Hgb and BUN WNL, already on PPI. ALESIA CHANDLER Mar 08, 2018 09:58
--- NOTE | 2018-03-08 10:17 | PATHOLOGY ---
[facility] Accession Number: [id number] . 01 Material submitted: . GALLBLADDER . 01 Clinical history: . Acute cholelithiasis . 02 Diagnosis: Gallbladder, laparoscopic cholecystectomy: - Cholelithiasis. - Chronic cholecystitis. LBQ/03/07/2018 . 02 Comment: There is no evidence of malignancy. (JPM/db; 03/07/18) . 02 Electronically signed: . Chaparro Blanc MD, Pathologist NPI- [id number] . 01 Gross description: . The specimen is received in formalin, labeled "Delgado, Norbert and gallbladder", is a disrupted 8.5 x 2.5 x 1.7 cm gallbladder. The serosa is glistening, smooth and kauffman-yellow. Opening the gallbladder reveal the lumen filled with multiple irregular fragments of yellow-brown calculi measuring 5.0 x 4.0 x 1.5 cm in aggregate. Also within the container are two irregular fragments of yellow-brown calculi measuring approximately 1.5 x 1.2 x 1.2 cm each. The mucosa is hyperemic with several effaced focal areas. The gallbladder wall is 0.1 cm thick. No discrete masses are identified. [employer] sections are submitted in A1. (SWS; 03/06/2018) SHS/SHS . 02 Pathologist provided ICD-10: K80.10 . 02 CPT . 985208 Performed at: 01 [facility] [address], [place] [id number] MD Reji Sahu MD Phone: [phone] Performed at: [facility] [address] [place], [place] [id number] MD Chaparro Blanc MD Phone: [phone]
[2018-03-08 11:00] VITALS: BP 132/85
[2018-03-08] MEDS: PROCHLORPERAZINE 10 MG/2 ML VIAL. IV PRN ×2 (12:41→22:03)
--- NOTE | 2018-03-08 13:39 | PDOC ---
PROGRESS NOTES Chief Complaint Chief Complaint CC: POD #1 ERCP (indicated a filling defect in the distal duct from a common duct calculus) POD # 2 Cholecystectomy Biliary Cholic Cholelithiasis History of Present Illness History of Present Illness Pt. seen and examined Pt. pale and lethargic VSS Shan-Sandy drain present and inspected; contained blood Pt. notes LUQ abd. pain Vitals Vitals Vital Signs Date Time Temp Pulse Resp B/P (MAP) Pulse Ox O2 Delivery O2 Flow Rate FiO2 03/08/18 12:42 Room Air 03/08/18 11:00 99.3 78 18 132/85 (101) 96 99.3 03/07/18 15:25 10 Physical Exam General: Alert, Oriented X3, Cooperative, No acute distress Heart: Regular rate, Normal S1, Normal S2, No murmurs Lungs: Clear Abdomen: Soft, Other (TTP across upper abdomen, dariusz serosang) Extremities: No clubbing, No cyanosis Skin: No rashes, No breakdown Labs LABS Laboratory Tests Test 03/07/18 20:14 03/07/18 21:25 03/08/18 04:00 Glucose (Fingerstick) 126 mg/dL (70-99) Hemoglobin 14.8 g/dL (13.0-17.5) 14.7 g/dL (13.0-17.5) Hematocrit 42.5 % (39.0-53.0) 42.3 % (39.0-53.0) White Blood Count 7.0 x10^3/uL (4.0-11.0) Red Blood Count 4.72 x10^6/uL (4.30-5.70) Mean Corpuscular Volume 90 fL (79-100) Mean Corpuscular Hemoglobin 31 pg (25-35) Mean Corpuscular Hemoglobin Concent 35 g/dL (31-37) Red Cell Distribution Width 13.6 % (11.5-14.5) Platelet Count 211 x10^3/uL (140-400) Neutrophils (%) (Auto) 78 % (31-73) Lymphocytes (%) (Auto) 14 % (24-48) Monocytes (%) (Auto) 8 % (0-9) Eosinophils (%) (Auto) 0 % (0-3) Basophils (%) (Auto) 0 % (0-3) Neutrophils # (Auto) 5.5 x10^3uL (1.8-7.7) Lymphocytes # (Auto) 1.0 x10^3/uL (1.0-4.8) Monocytes # (Auto) 0.5 x10^3/uL (0.0-1.1) Eosinophils # (Auto) 0.0 x10^3/uL (0.0-0.7) Basophils # (Auto) 0.0 x10^3/uL (0.0-0.2) Sodium Level 141 mmol/L (136-145) Potassium Level 3.6 mmol/L (3.5-5.1) Chloride Level 105 mmol/L (98-107) Carbon Dioxide Level 27 mmol/L (21-32) Anion Gap 9 (6-14) Blood Urea Nitrogen 11 mg/dL (8-26) Creatinine 1.1 mg/dL (0.7-1.3) Estimated GFR (Cockcroft-Gault) 71.1 BUN/Creatinine Ratio 10 (6-20) Glucose Level 109 mg/dL (70-99) Calcium Level 8.6 mg/dL (8.5-10.1) Total Bilirubin 2.8 mg/dL (0.2-1.0) Aspartate Amino Transf (AST/SGOT) 388 U/L (15-37) Alanine Aminotransferase (ALT/SGPT) 375 U/L (16-63) Alkaline Phosphatase 214 U/L (46-116) Total Protein 7.0 g/dL (6.4-8.2) Albumin 3.5 g/dL (3.4-5.0) Albumin/Globulin Ratio 1.0 (1.0-1.7) Amylase Level 839 U/L (25-115) Lipase 5982 U/L (73-393) Review of Systems Review of Systems C/O abd. pain Pt. denies weakness Assessment and Plan Assessmemt and Plan CC: Medical Problems: (1) Cholelithiasis Assessment: POD #1 ERCP (indicated a filling defect in the distal duct from a common duct calculus) POD # 2 Cholecystectomy Biliary Cholic Cholelithiasis POD # 2 Cholecystectomy Biliary Cholic Cholelithiasis Plan: Lipase level ordered to monitor possible pancreatitis Continue IV narcotics and antibiotics Continue IV fluids Wound care Monitor labs Continue meds Hope to discharge tomorrow if stable Comment Review of Relevant I have reviewed the following items awilda (where applicable) has been applied. Labs Laboratory Tests Test 03/07/18 05:00 03/07/18 20:14 03/07/18 21:25 03/08/18 04:00 White Blood Count 6.5 x10^3/uL (4.0-11.0) 7.0 x10^3/uL (4.0-11.0) Red Blood Count 4.64 x10^6/uL (4.30-5.70) 4.72 x10^6/uL (4.30-5.70) Hemoglobin 14.5 g/dL (13.0-17.5) 14.8 g/dL (13.0-17.5) 14.7 g/dL (13.0-17.5) Hematocrit 41.7 % (39.0-53.0) 42.5 % (39.0-53.0) 42.3 % (39.0-53.0) Mean Corpuscular Volume 90 fL (79-100) 90 fL (79-100) Mean Corpuscular Hemoglobin 31 pg (25-35) 31 pg (25-35) Mean Corpuscular Hemoglobin Concent 35 g/dL (31-37) 35 g/dL (31-37) Red Cell Distribution Width 13.6 % (11.5-14.5) 13.6 % (11.5-14.5) Platelet Count 203 x10^3/uL (140-400) 211 x10^3/uL (140-400) Prothrombin Time 13.4 SEC (11.7-14.0) Prothromb Time International Ratio 1.1 (0.8-1.1) Sodium Level 139 mmol/L (136-145) 141 mmol/L (136-145) Potassium Level 3.9 mmol/L (3.5-5.1) 3.6 mmol/L (3.5-5.1) Chloride Level 106 mmol/L (98-107) 105 mmol/L (98-107) Carbon Dioxide Level 29 mmol/L (21-32) 27 mmol/L (21-32) Anion Gap 4 (6-14) 9 (6-14) Blood Urea Nitrogen 9 mg/dL (8-26) 11 mg/dL (8-26) Creatinine 1.1 mg/dL (0.7-1.3) 1.1 mg/dL (0.7-1.3) Estimated GFR (Cockcroft-Gault) 71.1 71.1 BUN/Creatinine Ratio 8 (6-20) 10 (6-20) Glucose Level 118 mg/dL (70-99) 109 mg/dL (70-99) Calcium Level 8.8 mg/dL (8.5-10.1) 8.6 mg/dL (8.5-10.1) Total Bilirubin 0.6 mg/dL (0.2-1.0) 2.8 mg/dL (0.2-1.0) Aspartate Amino Transf (AST/SGOT) 93 U/L (15-37) 388 U/L (15-37) Alanine Aminotransferase (ALT/SGPT) 186 U/L (16-63) 375 U/L (16-63) Alkaline Phosphatase 123 U/L (46-116) 214 U/L (46-116) Total Protein 6.8 g/dL (6.4-8.2) 7.0 g/dL (6.4-8.2) Albumin 3.4 g/dL (3.4-5.0) 3.5 g/dL (3.4-5.0) Albumin/Globulin Ratio 1.0 (1.0-1.7) 1.0 (1.0-1.7) Glucose (Fingerstick) 126 mg/dL (70-99) Neutrophils (%) (Auto) 78 % (31-73) Lymphocytes (%) (Auto) 14 % (24-48) Monocytes (%) (Auto) 8 % (0-9) Eosinophils (%) (Auto) 0 % (0-3) Basophils (%) (Auto) 0 % (0-3) Neutrophils # (Auto) 5.5 x10^3uL (1.8-7.7) Lymphocytes # (Auto) 1.0 x10^3/uL (1.0-4.8) Monocytes # (Auto) 0.5 x10^3/uL (0.0-1.1) Eosinophils # (Auto) 0.0 x10^3/uL (0.0-0.7) Basophils # (Auto) 0.0 x10^3/uL (0.0-0.2) Amylase Level 839 U/L (25-115) Lipase 5982 U/L (73-393) Laboratory Tests Test 03/07/18 20:14 03/07/18 21:25 03/08/18 04:00 Glucose (Fingerstick) 126 mg/dL (70-99) Hemoglobin 14.8 g/dL (13.0-17.5) 14.7 g/dL (13.0-17.5) Hematocrit 42.5 % (39.0-53.0) 42.3 % (39.0-53.0) White Blood Count 7.0 x10^3/uL (4.0-11.0) Red Blood Count 4.72 x10^6/uL (4.30-5.70) Mean Corpuscular Volume 90 fL (79-100) Mean Corpuscular Hemoglobin 31 pg (25-35) Mean Corpuscular Hemoglobin Concent 35 g/dL (31-37) Red Cell Distribution Width 13.6 % (11.5-14.5) Platelet Count 211 x10^3/uL (140-400) Neutrophils (%) (Auto) 78 % (31-73) Lymphocytes (%) (Auto) 14 % (24-48) Monocytes (%) (Auto) 8 % (0-9) Eosinophils (%) (Auto) 0 % (0-3) Basophils (%) (Auto) 0 % (0-3) Neutrophils # (Auto) 5.5 x10^3uL (1.8-7.7) Lymphocytes # (Auto) 1.0 x10^3/uL (1.0-4.8) Monocytes # (Auto) 0.5 x10^3/uL (0.0-1.1) Eosinophils # (Auto) 0.0 x10^3/uL (0.0-0.7) Basophils # (Auto) 0.0 x10^3/uL (0.0-0.2) Sodium Level 141 mmol/L (136-145) Potassium Level 3.6 mmol/L (3.5-5.1) Chloride Level 105 mmol/L (98-107) Carbon Dioxide Level 27 mmol/L (21-32) Anion Gap 9 (6-14) Blood Urea Nitrogen 11 mg/dL (8-26) Creatinine 1.1 mg/dL (0.7-1.3) Estimated GFR (Cockcroft-Gault) 71.1 BUN/Creatinine Ratio 10 (6-20) Glucose Level 109 mg/dL (70-99) Calcium Level 8.6 mg/dL (8.5-10.1) Total Bilirubin 2.8 mg/dL (0.2-1.0) Aspartate Amino Transf (AST/SGOT) 388 U/L (15-37) Alanine Aminotransferase (ALT/SGPT) 375 U/L (16-63) Alkaline Phosphatase 214 U/L (46-116) Total Protein 7.0 g/dL (6.4-8.2) Albumin 3.5 g/dL (3.4-5.0) Albumin/Globulin Ratio 1.0 (1.0-1.7) Amylase Level 839 U/L (25-115) Lipase 5982 U/L (73-393) Medications Current Medications Sodium Chloride 1,000 ml @ 1,000 mls/hr Q1H IV Last administered on 03/05/18 13:52; Start 03/05/18 at 13:37; Stop 03/05/18 at 14:36; Status DC Fentanyl Citrate (Fentanyl 2ml Vial) 50 mcg 1X ONCE IV Last administered on 13:52; Start 03/05/18 at 13:45; Stop 03/05/18 at 13:46; Status DC Famotidine (Pepcid Vial) 20 mg 1X ONCE IVP Last administered on 03/05/18 13: 51; Start 03/05/18 at 13:45; Stop 03/05/18 at 13:46; Status DC Iohexol (Omnipaque 300 Mg/ml) 75 ml 1X ONCE IV Last administered on 03/05/18 13:45; Start 03/05/18 at 13:45; Stop 03/05/18 at 13:46; Status DC Ondansetron HCl (Zofran) 4 mg 1X ONCE IV Last administered on 03/05/18 13:51 ; Start 03/05/18 at 13:45; Stop 03/05/18 at 13:47; Status DC Info (CONTRAST GIVEN -- Rx MONITORING) 1 each PRN DAILY PRN MC SEE COMMENTS Last administered on 8/28/18at 13:16; Start 03/05/18 at 14:00; Stop 03/07/18 at 13:59; Status DC Ondansetron HCl (Zofran) 4 mg PRN Q8HRS PRN IV NAUSEA/VOMITING; Start 03/05/18 at 17:00; Stop 03/06/18 at 16:59; Status DC Fentanyl Citrate (Fentanyl 2ml Vial) 50 mcg PRN Q2HR PRN IV PAIN Last administered on 03/06/18at 06:28; Start 03/05/18 at 17:00; Stop 03/06/18 at 16:59 ; Status DC Sodium Chloride 1,000 ml @ 100 mls/hr Q10H IV Last administered on 03/06/18at 05:55; Start 03/05/18 at 17:00; Stop 03/06/18 at 16:59; Status DC Piperacillin Sod/ Tazobactam Sod 3.375 gm/Sodium Chloride 50 ml @ 100 mls/hr Q6HRS IV Last administered on 03/08/18at 12:42; Start 03/05/18 at 17:15 Ondansetron HCl (Zofran) 4 mg PRN Q6HRS PRN IV NAUSEA/VOMITING; Start 03/06/18 at 07:30; Stop 03/07/18 at 07:29; Status DC Fentanyl Citrate (Fentanyl 2ml Vial) 25 mcg PRN Q5MIN PRN IV MILD PAIN; Start 03/06/18 at 07:30; Stop 03/07/18 at 07:29; Status DC Fentanyl Citrate (Fentanyl 2ml Vial) 50 mcg PRN Q5MIN PRN IV MODERATE TO SEVERE PAIN Last administered on 03/06/18at 15:04; Start 03/06/18 at 07:30; Stop 03/07/18 at 07:29; Status DC Morphine Sulfate (Morphine Sulfate) 1 mg PRN Q10MIN PRN IV SEVERE PAIN; Start 03/06/18 at 07:30; Stop 03/07/18 at 07:29; Status DC Ringer's Solution 1,000 ml @ 30 mls/hr Q24H IV Last administered on 03/06/18at 10:44; Start 03/06/18 at 07:21; Stop 03/06/18 at 19:20; Status DC Lidocaine HCl (Xylocaine-Mpf 1% 2ml Vial) 2 ml PRN 1X PRN ID PRIOR TO IV START ; Start 03/06/18 at 07:30; Stop 03/07/18 at 07:29; Status DC Hydromorphone HCl (Dilaudid) 0.5 mg PRN Q10MIN PRN IV SEV PAIN, Second choice; Start 03/06/18 at 07:30; Stop 03/07/18 at 07:29; Status DC Prochlorperazine Edisylate (Compazine) 5 mg PACU PRN PRN IV NAUSEA, MRX1; Start 03/06/18 at 07:30; Stop 03/07/18 at 07:29; Status DC Rocuronium [place] (Zemuron) 50 mg STK-MED ONCE .ROUTE ; Start 03/06/18 at 11:58 ; Stop 03/06/18 at 11:59; Status DC Fentanyl Citrate (Fentanyl 2ml Vial) 100 mcg STK-MED ONCE .ROUTE ; Start at 11:58; Stop 03/06/18 at 11:59; Status DC Glycopyrrolate (Robinul) 1 mg STK-MED ONCE .ROUTE ; Start 03/06/18 at 11:59; Stop 03/06/18 at 12:00; Status DC Sevoflurane (Ultane) 60 ml STK-MED ONCE IH ; Start 03/06/18 at 12:20; Stop 03/06 at 12:21; Status DC Dexamethasone Sodium Phosphate (Decadron) 20 mg STK-MED ONCE .ROUTE ; Start at 12:22; Stop 03/06/18 at 12:23; Status DC Propofol 20 ml @ As Directed STK-MED ONCE IV ; Start 03/06/18 at 12:22; Stop at 12:23; Status DC Lidocaine HCl (Lidocaine Pf 2% Vial) 5 ml STK-MED ONCE .ROUTE ; Start 03/06/18 at 12:22; Stop 03/06/18 at 12:23; Status DC Ketorolac Tromethamine (Toradol For Or Only) 30 mg STK-MED ONCE INJ ; Start at 12:22; Stop 03/06/18 at 12:23; Status DC Ondansetron HCl (Zofran) 4 mg STK-MED ONCE .ROUTE ; Start 03/06/18 at 12:22; Stop 03/06/18 at 12:23; Status DC Bupivacaine HCl/ Epinephrine Bitart (Marcaine-Epi 0.5%-1:414224) 50 ml STK-MED ONCE .ROUTE ; Start 03/06/18 at 11:26; Stop 03/06/18 at 12:27; Status DC Iohexol (Omnipaque 300 Mg/ml) 100 ml STK-MED ONCE .ROUTE ; Start 03/06/18 at 11: 26; Stop 03/06/18 at 12:27; Status DC Cellulose (Surgicel Hemostat 4x8) 1 each STK-MED ONCE .ROUTE ; Start 03/06/18 at 11:27; Stop 03/06/18 at 12:27; Status DC Glucagon (Glucagen) 1 mg STK-MED ONCE .ROUTE Last administered on 03/06/18at 13: 27; Start 03/06/18 at 12:21; Stop 03/06/18 at 13:22; Status DC Phenylephrine HCl (PHENYLEPHRINE in 0.9% NACL PF) 1 mg STK-MED ONCE IV ; Start 03/06/18 at 13:35; Stop 03/06/18 at 13:36; Status DC Propofol 20 ml @ As Directed STK-MED ONCE IV ; Start 03/06/18 at 13:48; Stop at 13:49; Status DC Oxycodone/ Acetaminophen (Percocet 5/325) 1 tab PRN Q4HRS PRN PO PAIN MILD Last administered on 03/06/18at 17:39; Start 03/06/18 at 14:15 Oxycodone/ Acetaminophen (Percocet 5/325) 2 tab PRN Q4HRS PRN PO PAIN MODERATE TO SEVERE Last administered on 03/06/18at 22:13; Start 03/06/18 at 14:15 Polyethylene Glycol (miraLAX PACKET) 17 gm PRN DAILY PRN PO CONSTIPATION 1ST CHOICE; Start 03/06/18 at 16:00 Pantoprazole Sodium (Protonix) 40 mg DAILYAC PO Last administered on 03/06/18at 17:31; Start 03/06/18 at 16:30; Stop 03/08/18 at 10:01; Status DC Ringer's Solution 1,000 ml @ 50 mls/hr Q20H IV Last administered on 03/07/18at 13:29; Start 03/07/18 at 07:00; Stop 03/07/18 at 18:59; Status DC Fentanyl Citrate (Fentanyl 2ml Vial) 50 mcg PRN Q2HR PRN IV SEVERE PAIN Last administered on 03/08/18at 12:42; Start 03/07/18 at 05:00 Iohexol (Omnipaque 300 Mg/ml) 100 ml STK-MED ONCE .ROUTE ; Start 03/07/18 at 12: 38; Stop 03/07/18 at 12:39; Status DC Ondansetron HCl (Zofran) 4 mg PRN Q6HRS PRN IV NAUSEA/VOMITING Last administered on 03/07/18at 17:10; Start 03/07/18 at 13:00; Stop 03/08/18 at 12:59 ; Status DC Fentanyl Citrate (Fentanyl 2ml Vial) 25 mcg PRN Q5MIN PRN IV MILD PAIN; Start 03/07/18 at 13:00; Stop 03/08/18 at 12:59; Status DC Fentanyl Citrate (Fentanyl 2ml Vial) 50 mcg PRN Q5MIN PRN IV MODERATE TO SEVERE PAIN; Start 03/07/18 at 13:00; Stop 03/08/18 at 12:59; Status DC Morphine Sulfate (Morphine Sulfate) 1 mg PRN Q10MIN PRN IV SEVERE PAIN; Start 03/07/18 at 13:00; Stop 03/08/18 at 12:59; Status DC Ringer's Solution 1,000 ml @ 100 mls/hr Q10H IV Last administered on at 13:40; Start 03/07/18 at 12:50; Stop 03/08/18 at 00:49; Status DC Lidocaine HCl (Xylocaine-Mpf 1% 2ml Vial) 2 ml 1X PRN PRN ID IV START; Start at 13:00; Stop 03/08/18 at 12:59; Status DC Hydromorphone HCl (Dilaudid) 0.5 mg PRN Q10MIN PRN IV SEV PAIN, Second choice; Start 03/07/18 at 13:00; Stop 03/08/18 at 12:59; Status DC Prochlorperazine Edisylate (Compazine) 5 mg PACU PRN PRN IV NAUSEA, MRX1; Start 03/07/18 at 13:00; Stop 03/08/18 at 12:59; Status DC Al Hydroxide/Mg Hydroxide (Mylanta Plus Xs) 30 ml PRN Q2HR PRN PO HEARTBURN / GAS; Start 03/07/18 at 20:30 Calcium Carbonate/ Glycine (Tums) 500 mg PRN AFTMEALHC PRN PO INDIGESTION; Start 03/07/18 at 20:30 Multi-Ingredient Mouthwash/Gargle (Gi Cocktail) 20 ml 1X ONCE SWSW ; Start at 21:00; Stop 03/07/18 at 21:01; Status DC Multi-Ingredient Mouthwash/Gargle (Gi Cocktail) 20 ml PRN Q15MIN PRN PO CHEST PAIN; Start 03/07/18 at 20:30 Diphenhydramine HCl (Benadryl) 25 mg PRN QHS PRN PO INSOMNIA; Start 03/07/18 at 20:30 Ondansetron HCl (Zofran) 4 mg PRN Q6HRS PRN IV NAUSEA/VOMITING 1ST CHOICE Last administered on 03/08/18at 07:45; Start 03/07/18 at 20:30 Prochlorperazine Edisylate (Compazine) 5 mg PRN Q6HRS PRN IV NAUSEA/VOMITING 2ND CHOICE Last administered on 03/08/18at 12:41; Start 03/07/18 at 20:30 Sodium Chloride 1,000 ml @ 100 mls/hr Q10H IV Last administered on 03/08/18at 05:49; Start 03/07/18 at 21:00 Pantoprazole Sodium (PROTONIX VIAL for IV PUSH) 40 mg DAILYAC IVP ; Start at 10:30 Active Scripts Active Reported Tums (Calcium Carbonate) 200 Mg Tab.chew 200 Mg PO PRN PRN Milk Of Magnesia (Magnesium Hydroxide) 400 Mg/5 Ml Oral.susp 400 Mg PO PRN Dulcolax (Bisacodyl) 5 Mg Tablet.dr 5 Mg PO PRN DAILY PRN Allopurinol 100 Mg Tablet 1 Tab PO DAILY Claritin (Loratadine) 10 Mg Tablet 1 Tab PO DAILY Mobic (Meloxicam) 7.5 Mg Tablet 1 Tab PO BID Nortriptyline Hcl 75 Mg Capsule 75 Mg PO BID Vitals/I & O Vital Sign - Last 24 Hours 03/07/18 03/07/18 03/07/18 03/07/18 15:25 15:35 15:45 16:00 Temp 98.7 98.7 98.7 98.7 98.7 98.7 Pulse 87 69 74 84 Resp 20 20 20 18 B/P (MAP) 123/55 136/94 140/83 126/78 (94) Pulse Ox 100 97 98 96 O2 Delivery Simple Mask Room Air Room Air Room Air O2 Flow Rate 10 03/07/18 03/07/18 03/07/18 03/07/18 16:16 16:23 16:31 16:45 Temp 97.9 97.9 Pulse 63 76 69 Resp 18 18 18 18 B/P (MAP) 126/70 (88) 131/75 (93) 126/81 (96) Pulse Ox 96 98 95 94 O2 Delivery Room Air Room Air Room Air Room Air 03/07/18 03/07/18 03/07/18 03/07/18 17:01 17:32 18:00 18:23 Temp 98.0 98.6 98.0 98.6 Pulse 64 85 63 Resp 18 18 18 17 B/P (MAP) 128/71 (90) 126/72 (90) 122/73 (89) Pulse Ox 95 96 96 96 O2 Delivery Nasal Cannula Room Air Room Air Room Air 03/07/18 03/07/18 03/07/18 03/07/18 19:00 20:15 21:05 23:00 Temp 99.0 99.1 99.0 99.1 Pulse 64 92 Resp 18 16 18 B/P (MAP) 132/77 (95) 145/82 (103) Pulse Ox 96 93 O2 Delivery Room Air Room Air Room Air Room Air 03/07/18 03/08/18 03/08/18 03/08/18 23:15 02:13 03:00 04:43 Temp 99.3 99.3 Pulse 83 Resp 16 16 18 16 B/P (MAP) 131/85 (100) Pulse Ox 96 O2 Delivery Room Air Room Air Room Air Room Air 03/08/18 03/08/18 03/08/18 03/08/18 05:15 07:00 07:45 10:14 Temp 98.7 98.7 Pulse 77 Resp 16 18 B/P (MAP) 143/83 (103) Pulse Ox 96 96 O2 Delivery Room Air Room Air Room Air 03/08/18 03/08/18 03/08/18 10:44 11:00 12:42 Temp 99.3 99.3 Pulse 78 Resp 18 B/P (MAP) 132/85 (101) Pulse Ox 96 O2 Delivery Room Air Room Air Room Air Intake and Output 03/07/18 03/07/18 03/08/18 15:00 23:00 07:00 Intake Total 1000 ml 2400 ml Output Total 0 ml 50 ml Balance 1000 ml 2350 ml SNOIA EDWARDS III DO Mar 08, 2018 13:39
[2018-03-08 15:00] VITALS: BP 127/83
[2018-03-08] MEDS ORDERED: ACETAMINOPHEN 650 MG SUPP.RECT. PR PRN (16:45)
[2018-03-08 19:00] VITALS: BP 135/83
[2018-03-08 21:47] LABS: BILIRUBIN,URINE MODERATE (NEG); CLARITY,URINE CLEAR; COLOR,URINE AMBER; NITRITE,URINE NEGATIVE (NEG); PROTEIN,URINE NEGATIVE (NEG-TRACE)
[2018-03-08 21:53] LABS: BACTERIA,URINE 0 /HPF (0-FEW); RBC,URINE 0 /HPF (0-2); SQUAMOUS EPITHELIAL CELL,UR FEW /LPF; WBC,URINE 0 /HPF (0-4)
[2018-03-08 23:56] VITALS: BP 124/77
[2018-03-09] MEDS: fentaNYL PF VIAL 100 MCG/2 ML VIAL IV PRN ×10 (02:53→22:53)
[2018-03-09 02:56] VITALS: BP 133/84
[2018-03-09] MEDS ORDERED: SALIVA STIMULANT AGENT 44ML SPRAY BOTTLE. PO PRN (03:00)
[2018-03-09 03:01] LABS: BASO % 0 % (0-3); EOS % 0 % (0-3); HEMATOCRIT 41.9 % (39.0-53.0); HEMOGLOBIN 14.5 g/dL (13.0-17.5); LYMPH # 1.2 x10^3/uL (1.0-4.8); LYMPH % 13 % (24-48); MEAN CORPUSCULAR HEMOGLOBIN 31 pg (25-35); MEAN CORPUSCULAR HGB CONC 35 g/dL (31-37); MEAN CORPUSCULAR VOLUME 91 fL (79-100); MONO # 0.8 x10^3/uL (0.0-1.1); MONO % 9 % (0-9); NEUT # 6.8 x10^3uL (1.8-7.7); NEUT % 77 % (31-73); PLATELET COUNT 188 x10^3/uL (140-400); RED BLOOD COUNT 4.63 x10^6/uL (4.30-5.70); RED CELL DISTRIBUTION WIDTH 13.5 % (11.5-14.5); WHITE BLOOD COUNT 8.8 x10^3/uL (4.0-11.0)
[2018-03-09 03:18] LABS: ALBUMIN 3.3 g/dL (3.4-5.0); CALCIUM 8.3 mg/dL (8.5-10.1); CREATININE 1.1 mg/dL (0.7-1.3); GFR 71.1; POTASSIUM 3.2 mmol/L (3.5-5.1); TOTAL BILIRUBIN 5.7 mg/dL (0.2-1.0); TOTAL PROTEIN 6.7 g/dL (6.4-8.2)
[2018-03-09] MEDS: PIPERACILLIN/TAZOBACTAM 3.375 GM in IV NORMAL SALINE 50ML 50 ML IV SCH ×3 (05:06→17:50)
[2018-03-09] MEDS: IV NORMAL SALINE 1000ML BAG 1,000 ML IV SCH ×3 (05:06→23:44)
[2018-03-09 07:00] VITALS: BP 124/81
--- NOTE | 2018-03-09 08:40 | RAD ---
PORTABLE CHEST 1V dated 03/08/2018 5:07 PM. Comparison: None. Clinical Indication: VOMITING BILE. Findings: Single upright portable exam performed. Heart and mediastinal contours within normal limits. Lungs are hypoinflated but otherwise clear. Minimal linear opacity at the right lung base, likely atelectasis. No consolidation or pleural effusion. No pneumothorax. Impression: No acute radiographic abnormality. Electronically signed by: Norbert Melara MD (03/09/2018 8:38 AM) [id number]
--- NOTE | 2018-03-09 08:42 | PDOC ---
[employer] 03/09/18 0842: SURGICAL PROGRESS NOTE Subjective pain at 10 nausea and emesis Vital Signs Vital Signs Date Time Temp Pulse Resp B/P (MAP) Pulse Ox O2 Delivery O2 Flow Rate FiO2 03/09/18 07:18 18 92 Room Air 03/09/18 07:00 99.5 73 124/81 (95) 99.5 I&O Intake and Output 03/09/18 07:00 Intake Total 0 ml Output Total 175 ml Balance -175 ml Intake Oral 0 ml Output Urine Total 175 ml # Voids 6 General: Alert, Cooperative, Other (in pain) Abdomen: Soft, Other (drain serosang, diffusely tender ) Labs Laboratory Tests Test 03/07/18 20:14 03/07/18 21:25 03/08/18 04:00 03/08/18 21:40 Glucose (Fingerstick) 126 mg/dL (70-99) Hemoglobin 14.8 g/dL (13.0-17.5) 14.7 g/dL (13.0-17.5) Hematocrit 42.5 % (39.0-53.0) 42.3 % (39.0-53.0) White Blood Count 7.0 x10^3/uL (4.0-11.0) Red Blood Count 4.72 x10^6/uL (4.30-5.70) Mean Corpuscular Volume 90 fL (79-100) Mean Corpuscular Hemoglobin 31 pg (25-35) Mean Corpuscular Hemoglobin Concent 35 g/dL (31-37) Red Cell Distribution Width 13.6 % (11.5-14.5) Platelet Count 211 x10^3/uL (140-400) Neutrophils (%) (Auto) 78 % (31-73) Lymphocytes (%) (Auto) 14 % (24-48) Monocytes (%) (Auto) 8 % (0-9) Eosinophils (%) (Auto) 0 % (0-3) Basophils (%) (Auto) 0 % (0-3) Neutrophils # (Auto) 5.5 x10^3uL (1.8-7.7) Lymphocytes # (Auto) 1.0 x10^3/uL (1.0-4.8) Monocytes # (Auto) 0.5 x10^3/uL (0.0-1.1) Eosinophils # (Auto) 0.0 x10^3/uL (0.0-0.7) Basophils # (Auto) 0.0 x10^3/uL (0.0-0.2) Sodium Level 141 mmol/L (136-145) Potassium Level 3.6 mmol/L (3.5-5.1) Chloride Level 105 mmol/L (98-107) Carbon Dioxide Level 27 mmol/L (21-32) Anion Gap 9 (6-14) Blood Urea Nitrogen 11 mg/dL (8-26) Creatinine 1.1 mg/dL (0.7-1.3) Estimated GFR (Cockcroft-Gault) 71.1 BUN/Creatinine Ratio 10 (6-20) Glucose Level 109 mg/dL (70-99) Calcium Level 8.6 mg/dL (8.5-10.1) Total Bilirubin 2.8 mg/dL (0.2-1.0) Aspartate Amino Transf (AST/SGOT) 388 U/L (15-37) Alanine Aminotransferase (ALT/SGPT) 375 U/L (16-63) Alkaline Phosphatase 214 U/L (46-116) Total Protein 7.0 g/dL (6.4-8.2) Albumin 3.5 g/dL (3.4-5.0) Albumin/Globulin Ratio 1.0 (1.0-1.7) Amylase Level 839 U/L (25-115) Lipase 5982 U/L (73-393) Urine Collection Type Unknown Urine Color Vanda Urine Clarity Clear Urine pH 7.0 Urine Specific [place] 1.020 Urine Protein Negative mg/dL (NEG-TRACE) Urine Glucose (UA) Negative mg/dL (NEG) Urine Ketones (Stick) 15 mg/dL (NEG) Urine Blood Negative (NEG) Urine Nitrite Negative (NEG) Urine Bilirubin Moderate (NEG) Urine Urobilinogen Dipstick 2.0 mg/dL (0.2 mg/dL) Urine Leukocyte Esterase Negative (NEG) Urine RBC 0 /HPF (0-2) Urine WBC 0 /HPF (0-4) Urine Squamous Epithelial Cells Few /LPF Urine Bacteria 0 /HPF (0-FEW) Test 03/09/18 02:30 White Blood Count 8.8 x10^3/uL (4.0-11.0) Red Blood Count 4.63 x10^6/uL (4.30-5.70) Hemoglobin 14.5 g/dL (13.0-17.5) Hematocrit 41.9 % (39.0-53.0) Mean Corpuscular Volume 91 fL (79-100) Mean Corpuscular Hemoglobin 31 pg (25-35) Mean Corpuscular Hemoglobin Concent 35 g/dL (31-37) Red Cell Distribution Width 13.5 % (11.5-14.5) Platelet Count 188 x10^3/uL (140-400) Neutrophils (%) (Auto) 77 % (31-73) Lymphocytes (%) (Auto) 13 % (24-48) Monocytes (%) (Auto) 9 % (0-9) Eosinophils (%) (Auto) 0 % (0-3) Basophils (%) (Auto) 0 % (0-3) Neutrophils # (Auto) 6.8 x10^3uL (1.8-7.7) Lymphocytes # (Auto) 1.2 x10^3/uL (1.0-4.8) Monocytes # (Auto) 0.8 x10^3/uL (0.0-1.1) Eosinophils # (Auto) 0.0 x10^3/uL (0.0-0.7) Basophils # (Auto) 0.0 x10^3/uL (0.0-0.2) Sodium Level 139 mmol/L (136-145) Potassium Level 3.2 mmol/L (3.5-5.1) Chloride Level 103 mmol/L (98-107) Carbon Dioxide Level 26 mmol/L (21-32) Anion Gap 10 (6-14) Blood Urea Nitrogen 10 mg/dL (8-26) Creatinine 1.1 mg/dL (0.7-1.3) Estimated GFR (Cockcroft-Gault) 71.1 BUN/Creatinine Ratio 9 (6-20) Glucose Level 107 mg/dL (70-99) Lactic Acid Level 1.2 mmol/L (0.4-2.0) Calcium Level 8.3 mg/dL (8.5-10.1) Total Bilirubin 5.7 mg/dL (0.2-1.0) Aspartate Amino Transf (AST/SGOT) 183 U/L (15-37) Alanine Aminotransferase (ALT/SGPT) 330 U/L (16-63) Alkaline Phosphatase 232 U/L (46-116) Total Protein 6.7 g/dL (6.4-8.2) Albumin 3.3 g/dL (3.4-5.0) Albumin/Globulin Ratio 1.0 (1.0-1.7) Lipase 787 U/L (73-393) Laboratory Tests Test 03/08/18 21:40 03/09/18 02:30 Urine Collection Type Unknown Urine Color Vanda Urine Clarity Clear Urine pH 7.0 Urine Specific [place] 1.020 Urine Protein Negative mg/dL (NEG-TRACE) Urine Glucose (UA) Negative mg/dL (NEG) Urine Ketones (Stick) 15 mg/dL (NEG) Urine Blood Negative (NEG) Urine Nitrite Negative (NEG) Urine Bilirubin Moderate (NEG) Urine Urobilinogen Dipstick 2.0 mg/dL (0.2 mg/dL) Urine Leukocyte Esterase Negative (NEG) Urine RBC 0 /HPF (0-2) Urine WBC 0 /HPF (0-4) Urine Squamous Epithelial Cells Few /LPF Urine Bacteria 0 /HPF (0-FEW) White Blood Count 8.8 x10^3/uL (4.0-11.0) Red Blood Count 4.63 x10^6/uL (4.30-5.70) Hemoglobin 14.5 g/dL (13.0-17.5) Hematocrit 41.9 % (39.0-53.0) Mean Corpuscular Volume 91 fL (79-100) Mean Corpuscular Hemoglobin 31 pg (25-35) Mean Corpuscular Hemoglobin Concent 35 g/dL (31-37) Red Cell Distribution Width 13.5 % (11.5-14.5) Platelet Count 188 x10^3/uL (140-400) Neutrophils (%) (Auto) 77 % (31-73) Lymphocytes (%) (Auto) 13 % (24-48) Monocytes (%) (Auto) 9 % (0-9) Eosinophils (%) (Auto) 0 % (0-3) Basophils (%) (Auto) 0 % (0-3) Neutrophils # (Auto) 6.8 x10^3uL (1.8-7.7) Lymphocytes # (Auto) 1.2 x10^3/uL (1.0-4.8) Monocytes # (Auto) 0.8 x10^3/uL (0.0-1.1) Eosinophils # (Auto) 0.0 x10^3/uL (0.0-0.7) Basophils # (Auto) 0.0 x10^3/uL (0.0-0.2) Sodium Level 139 mmol/L (136-145) Potassium Level 3.2 mmol/L (3.5-5.1) Chloride Level 103 mmol/L (98-107) Carbon Dioxide Level 26 mmol/L (21-32) Anion Gap 10 (6-14) Blood Urea Nitrogen 10 mg/dL (8-26) Creatinine 1.1 mg/dL (0.7-1.3) Estimated GFR (Cockcroft-Gault) 71.1 BUN/Creatinine Ratio 9 (6-20) Glucose Level 107 mg/dL (70-99) Lactic Acid Level 1.2 mmol/L (0.4-2.0) Calcium Level 8.3 mg/dL (8.5-10.1) Total Bilirubin 5.7 mg/dL (0.2-1.0) Aspartate Amino Transf (AST/SGOT) 183 U/L (15-37) Alanine Aminotransferase (ALT/SGPT) 330 U/L (16-63) Alkaline Phosphatase 232 U/L (46-116) Total Protein 6.7 g/dL (6.4-8.2) Albumin 3.3 g/dL (3.4-5.0) Albumin/Globulin Ratio 1.0 (1.0-1.7) Lipase 787 U/L (73-393) Problem List Problems Medical Problems: (1) Cholelithiasis Status: Acute Assessment/Plan s/p lap danna, ERCP, pancreatitis noted T bili d/w GI ROBIN WHITLEY MD 03/09/18 1612: SURGICAL PROGRESS NOTE Assessment/Plan Agree with above, GI recommendations SANTOS MUNSON [employer] Mar 09, 2018 08:42 ROBIN WHITLEY MD Mar 09, 2018 16:12
--- NOTE | 2018-03-09 08:58 | PDOC ---
Subjective: Subjective: Pain is worse, stomach gurgling, can't keep ice chips down, can't tolerate throat spray Objective: Objective: Tmax 100.9, normal HR, normal WBC D/w Kenia/surg and RN Vital Signs: Vital Signs Date Time Temp Pulse Resp B/P (MAP) Pulse Ox O2 Delivery O2 Flow Rate FiO2 03/09/18 07:18 18 92 Room Air 03/09/18 07:00 99.5 73 124/81 (95) 99.5 Labs: Laboratory Tests Test 03/08/18 21:40 03/09/18 02:30 Urine Collection Type Unknown Urine Color Vanda Urine Clarity Clear Urine pH 7.0 Urine Specific [place] 1.020 Urine Protein Negative mg/dL Urine Glucose (UA) Negative mg/dL Urine Ketones (Stick) 15 mg/dL Urine Blood Negative Urine Nitrite Negative Urine Bilirubin Moderate Urine Urobilinogen Dipstick 2.0 mg/dL Urine Leukocyte Esterase Negative Urine RBC 0 /HPF Urine WBC 0 /HPF Urine Squamous Epithelial Cells Few /LPF Urine Bacteria 0 /HPF White Blood Count 8.8 x10^3/uL Red Blood Count 4.63 x10^6/uL Hemoglobin 14.5 g/dL Hematocrit 41.9 % Mean Corpuscular Volume 91 fL Mean Corpuscular Hemoglobin 31 pg Mean Corpuscular Hemoglobin Concent 35 g/dL Red Cell Distribution Width 13.5 % Platelet Count 188 x10^3/uL Neutrophils (%) (Auto) 77 % Lymphocytes (%) (Auto) 13 % Monocytes (%) (Auto) 9 % Eosinophils (%) (Auto) 0 % Basophils (%) (Auto) 0 % Neutrophils # (Auto) 6.8 x10^3uL Lymphocytes # (Auto) 1.2 x10^3/uL Monocytes # (Auto) 0.8 x10^3/uL Eosinophils # (Auto) 0.0 x10^3/uL Basophils # (Auto) 0.0 x10^3/uL Sodium Level 139 mmol/L Potassium Level 3.2 mmol/L Chloride Level 103 mmol/L Carbon Dioxide Level 26 mmol/L Anion Gap 10 Blood Urea Nitrogen 10 mg/dL Creatinine 1.1 mg/dL Estimated GFR (Cockcroft-Gault) 71.1 BUN/Creatinine Ratio 9 Glucose Level 107 mg/dL Lactic Acid Level 1.2 mmol/L Calcium Level 8.3 mg/dL Total Bilirubin 5.7 mg/dL Aspartate Amino Transf (AST/SGOT) 183 U/L Alanine Aminotransferase (ALT/SGPT) 330 U/L Alkaline Phosphatase 232 U/L Total Protein 6.7 g/dL Albumin 3.3 g/dL Albumin/Globulin Ratio 1.0 Lipase 787 U/L Imaging: CXR 03/08 Impression: No acute radiographic abnormality. PE: GEN: uncomfortable LUNGS: CTAB HEART: RRR ABD: NABS, tender to placement of stethoscope - periumbilical to DIRK NEURO/PSYCH: A & O 3 A/P: Choledocholithiasis s/p ERCP w/ sphincterotomy and stone extraction Pancreatitis - lipase improved Elevated LFTs - bili (5.7) and Alk Phos worse Low-grade fever, abd pain, n/v -- Will review w/ Dr. Ma. ALESIA CHANDLER Mar 09, 2018 08:57
[2018-03-09] MEDS: PANTOPRAZOLE IV PUSH 40 MG VIAL. IVP SCH (10:01)
[2018-03-09] MEDS ORDERED: IOHEXOL 300 MG/ML 100ML VIAL. IV ONE (10:30)
[2018-03-09 11:00] VITALS: BP 133/79
--- NOTE | 2018-03-09 11:58 | PDOC ---
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 in place Pt CO pain and nausea Vitals Vitals Vital Signs Date Time Temp Pulse Resp B/P (MAP) Pulse Ox O2 Delivery O2 Flow Rate FiO2 03/09/18 09:48 92 Room Air 03/09/18 07:18 18 03/09/18 07:00 99.5 73 124/81 (95) 99.5 Physical Exam General: Alert, Cooperative, Other (in pain) Heart: Regular rate, Normal S1, Normal S2, No murmurs Lungs: Clear Abdomen: Soft, Other (DIRK drain in place) Extremities: No clubbing, No cyanosis Skin: No rashes, No breakdown Labs LABS Laboratory Tests Test 03/08/18 21:40 03/09/18 02:30 Urine Collection Type Unknown Urine Color Vanda Urine Clarity Clear Urine pH 7.0 Urine Specific [place] 1.020 Urine Protein Negative mg/dL (NEG-TRACE) Urine Glucose (UA) Negative mg/dL (NEG) Urine Ketones (Stick) 15 mg/dL (NEG) Urine Blood Negative (NEG) Urine Nitrite Negative (NEG) Urine Bilirubin Moderate (NEG) Urine Urobilinogen Dipstick 2.0 mg/dL (0.2 mg/dL) Urine Leukocyte Esterase Negative (NEG) Urine RBC 0 /HPF (0-2) Urine WBC 0 /HPF (0-4) Urine Squamous Epithelial Cells Few /LPF Urine Bacteria 0 /HPF (0-FEW) White Blood Count 8.8 x10^3/uL (4.0-11.0) Red Blood Count 4.63 x10^6/uL (4.30-5.70) Hemoglobin 14.5 g/dL (13.0-17.5) Hematocrit 41.9 % (39.0-53.0) Mean Corpuscular Volume 91 fL (79-100) Mean Corpuscular Hemoglobin 31 pg (25-35) Mean Corpuscular Hemoglobin Concent 35 g/dL (31-37) Red Cell Distribution Width 13.5 % (11.5-14.5) Platelet Count 188 x10^3/uL (140-400) Neutrophils (%) (Auto) 77 % (31-73) Lymphocytes (%) (Auto) 13 % (24-48) Monocytes (%) (Auto) 9 % (0-9) Eosinophils (%) (Auto) 0 % (0-3) Basophils (%) (Auto) 0 % (0-3) Neutrophils # (Auto) 6.8 x10^3uL (1.8-7.7) Lymphocytes # (Auto) 1.2 x10^3/uL (1.0-4.8) Monocytes # (Auto) 0.8 x10^3/uL (0.0-1.1) Eosinophils # (Auto) 0.0 x10^3/uL (0.0-0.7) Basophils # (Auto) 0.0 x10^3/uL (0.0-0.2) Sodium Level 139 mmol/L (136-145) Potassium Level 3.2 mmol/L (3.5-5.1) Chloride Level 103 mmol/L (98-107) Carbon Dioxide Level 26 mmol/L (21-32) Anion Gap 10 (6-14) Blood Urea Nitrogen 10 mg/dL (8-26) Creatinine 1.1 mg/dL (0.7-1.3) Estimated GFR (Cockcroft-Gault) 71.1 BUN/Creatinine Ratio 9 (6-20) Glucose Level 107 mg/dL (70-99) Lactic Acid Level 1.2 mmol/L (0.4-2.0) Calcium Level 8.3 mg/dL (8.5-10.1) Total Bilirubin 5.7 mg/dL (0.2-1.0) Aspartate Amino Transf (AST/SGOT) 183 U/L (15-37) Alanine Aminotransferase (ALT/SGPT) 330 U/L (16-63) Alkaline Phosphatase 232 U/L (46-116) Total Protein 6.7 g/dL (6.4-8.2) Albumin 3.3 g/dL (3.4-5.0) Albumin/Globulin Ratio 1.0 (1.0-1.7) Lipase 787 U/L (73-393) Review of Systems Review of Systems CO nausea CO pain Assessment and Plan Assessmemt and Plan Problems Medical Problems: (1) Cholelithiasis Status: Acute POD #2 ERCP (indicated a filling defect in the distal duct from a common duct calculus) POD # 3 Cholecystectomy Biliary Cholic Cholelithiasis Plan: Monitor labs Pain meds Nausea meds Monitor drain Wound care Comment Review of Relevant I have reviewed the following items awilda (where applicable) has been applied. Labs Laboratory Tests Test 03/07/18 20:14 03/07/18 21:25 03/08/18 04:00 03/08/18 21:40 Glucose (Fingerstick) 126 mg/dL (70-99) Hemoglobin 14.8 g/dL (13.0-17.5) 14.7 g/dL (13.0-17.5) Hematocrit 42.5 % (39.0-53.0) 42.3 % (39.0-53.0) White Blood Count 7.0 x10^3/uL (4.0-11.0) Red Blood Count 4.72 x10^6/uL (4.30-5.70) Mean Corpuscular Volume 90 fL (79-100) Mean Corpuscular Hemoglobin 31 pg (25-35) Mean Corpuscular Hemoglobin Concent 35 g/dL (31-37) Red Cell Distribution Width 13.6 % (11.5-14.5) Platelet Count 211 x10^3/uL (140-400) Neutrophils (%) (Auto) 78 % (31-73) Lymphocytes (%) (Auto) 14 % (24-48) Monocytes (%) (Auto) 8 % (0-9) Eosinophils (%) (Auto) 0 % (0-3) Basophils (%) (Auto) 0 % (0-3) Neutrophils # (Auto) 5.5 x10^3uL (1.8-7.7) Lymphocytes # (Auto) 1.0 x10^3/uL (1.0-4.8) Monocytes # (Auto) 0.5 x10^3/uL (0.0-1.1) Eosinophils # (Auto) 0.0 x10^3/uL (0.0-0.7) Basophils # (Auto) 0.0 x10^3/uL (0.0-0.2) Sodium Level 141 mmol/L (136-145) Potassium Level 3.6 mmol/L (3.5-5.1) Chloride Level 105 mmol/L (98-107) Carbon Dioxide Level 27 mmol/L (21-32) Anion Gap 9 (6-14) Blood Urea Nitrogen 11 mg/dL (8-26) Creatinine 1.1 mg/dL (0.7-1.3) Estimated GFR (Cockcroft-Gault) 71.1 BUN/Creatinine Ratio 10 (6-20) Glucose Level 109 mg/dL (70-99) Calcium Level 8.6 mg/dL (8.5-10.1) Total Bilirubin 2.8 mg/dL (0.2-1.0) Aspartate Amino Transf (AST/SGOT) 388 U/L (15-37) Alanine Aminotransferase (ALT/SGPT) 375 U/L (16-63) Alkaline Phosphatase 214 U/L (46-116) Total Protein 7.0 g/dL (6.4-8.2) Albumin 3.5 g/dL (3.4-5.0) Albumin/Globulin Ratio 1.0 (1.0-1.7) Amylase Level 839 U/L (25-115) Lipase 5982 U/L (73-393) Urine Collection Type Unknown Urine Color Vanda Urine Clarity Clear Urine pH 7.0 Urine Specific [place] 1.020 Urine Protein Negative mg/dL (NEG-TRACE) Urine Glucose (UA) Negative mg/dL (NEG) Urine Ketones (Stick) 15 mg/dL (NEG) Urine Blood Negative (NEG) Urine Nitrite Negative (NEG) Urine Bilirubin Moderate (NEG) Urine Urobilinogen Dipstick 2.0 mg/dL (0.2 mg/dL) Urine Leukocyte Esterase Negative (NEG) Urine RBC 0 /HPF (0-2) Urine WBC 0 /HPF (0-4) Urine Squamous Epithelial Cells Few /LPF Urine Bacteria 0 /HPF (0-FEW) Test 03/09/18 02:30 White Blood Count 8.8 x10^3/uL (4.0-11.0) Red Blood Count 4.63 x10^6/uL (4.30-5.70) Hemoglobin 14.5 g/dL (13.0-17.5) Hematocrit 41.9 % (39.0-53.0) Mean Corpuscular Volume 91 fL (79-100) Mean Corpuscular Hemoglobin 31 pg (25-35) Mean Corpuscular Hemoglobin Concent 35 g/dL (31-37) Red Cell Distribution Width 13.5 % (11.5-14.5) Platelet Count 188 x10^3/uL (140-400) Neutrophils (%) (Auto) 77 % (31-73) Lymphocytes (%) (Auto) 13 % (24-48) Monocytes (%) (Auto) 9 % (0-9) Eosinophils (%) (Auto) 0 % (0-3) Basophils (%) (Auto) 0 % (0-3) Neutrophils # (Auto) 6.8 x10^3uL (1.8-7.7) Lymphocytes # (Auto) 1.2 x10^3/uL (1.0-4.8) Monocytes # (Auto) 0.8 x10^3/uL (0.0-1.1) Eosinophils # (Auto) 0.0 x10^3/uL (0.0-0.7) Basophils # (Auto) 0.0 x10^3/uL (0.0-0.2) Sodium Level 139 mmol/L (136-145) Potassium Level 3.2 mmol/L (3.5-5.1) Chloride Level 103 mmol/L (98-107) Carbon Dioxide Level 26 mmol/L (21-32) Anion Gap 10 (6-14) Blood Urea Nitrogen 10 mg/dL (8-26) Creatinine 1.1 mg/dL (0.7-1.3) Estimated GFR (Cockcroft-Gault) 71.1 BUN/Creatinine Ratio 9 (6-20) Glucose Level 107 mg/dL (70-99) Lactic Acid Level 1.2 mmol/L (0.4-2.0) Calcium Level 8.3 mg/dL (8.5-10.1) Total Bilirubin 5.7 mg/dL (0.2-1.0) Aspartate Amino Transf (AST/SGOT) 183 U/L (15-37) Alanine Aminotransferase (ALT/SGPT) 330 U/L (16-63) Alkaline Phosphatase 232 U/L (46-116) Total Protein 6.7 g/dL (6.4-8.2) Albumin 3.3 g/dL (3.4-5.0) Albumin/Globulin Ratio 1.0 (1.0-1.7) Lipase 787 U/L (73-393) Laboratory Tests Test 8/30/18 21:40 03/09/18 02:30 Urine Collection Type Unknown Urine Color Vanda Urine Clarity Clear Urine pH 7.0 Urine Specific [place] 1.020 Urine Protein Negative mg/dL (NEG-TRACE) Urine Glucose (UA) Negative mg/dL (NEG) Urine Ketones (Stick) 15 mg/dL (NEG) Urine Blood Negative (NEG) Urine Nitrite Negative (NEG) Urine Bilirubin Moderate (NEG) Urine Urobilinogen Dipstick 2.0 mg/dL (0.2 mg/dL) Urine Leukocyte Esterase Negative (NEG) Urine RBC 0 /HPF (0-2) Urine WBC 0 /HPF (0-4) Urine Squamous Epithelial Cells Few /LPF Urine Bacteria 0 /HPF (0-FEW) White Blood Count 8.8 x10^3/uL (4.0-11.0) Red Blood Count 4.63 x10^6/uL (4.30-5.70) Hemoglobin 14.5 g/dL (13.0-17.5) Hematocrit 41.9 % (39.0-53.0) Mean Corpuscular Volume 91 fL (79-100) Mean Corpuscular Hemoglobin 31 pg (25-35) Mean Corpuscular Hemoglobin Concent 35 g/dL (31-37) Red Cell Distribution Width 13.5 % (11.5-14.5) Platelet Count 188 x10^3/uL (140-400) Neutrophils (%) (Auto) 77 % (31-73) Lymphocytes (%) (Auto) 13 % (24-48) Monocytes (%) (Auto) 9 % (0-9) Eosinophils (%) (Auto) 0 % (0-3) Basophils (%) (Auto) 0 % (0-3) Neutrophils # (Auto) 6.8 x10^3uL (1.8-7.7) Lymphocytes # (Auto) 1.2 x10^3/uL (1.0-4.8) Monocytes # (Auto) 0.8 x10^3/uL (0.0-1.1) Eosinophils # (Auto) 0.0 x10^3/uL (0.0-0.7) Basophils # (Auto) 0.0 x10^3/uL (0.0-0.2) Sodium Level 139 mmol/L (136-145) Potassium Level 3.2 mmol/L (3.5-5.1) Chloride Level 103 mmol/L (98-107) Carbon Dioxide Level 26 mmol/L (21-32) Anion Gap 10 (6-14) Blood Urea Nitrogen 10 mg/dL (8-26) Creatinine 1.1 mg/dL (0.7-1.3) Estimated GFR (Cockcroft-Gault) 71.1 BUN/Creatinine Ratio 9 (6-20) Glucose Level 107 mg/dL (70-99) Lactic Acid Level 1.2 mmol/L (0.4-2.0) Calcium Level 8.3 mg/dL (8.5-10.1) Total Bilirubin 5.7 mg/dL (0.2-1.0) Aspartate Amino Transf (AST/SGOT) 183 U/L (15-37) Alanine Aminotransferase (ALT/SGPT) 330 U/L (16-63) Alkaline Phosphatase 232 U/L (46-116) Total Protein 6.7 g/dL (6.4-8.2) Albumin 3.3 g/dL (3.4-5.0) Albumin/Globulin Ratio 1.0 (1.0-1.7) Lipase 787 U/L (73-393) Medications Current Medications Sodium Chloride 1,000 ml @ 1,000 mls/hr Q1H IV Last administered on 03/05/18at 13:52; Start 03/05/18 at 13:37; Stop 03/05/18 at 14:36; Status DC Fentanyl Citrate (Fentanyl 2ml Vial) 50 mcg 1X ONCE IV Last administered on at 13:52; Start 03/05/18 at 13:45; Stop 03/05/18 at 13:46; Status DC Famotidine (Pepcid Vial) 20 mg 1X ONCE IVP Last administered on 03/05/18at 13: 51; Start 03/05/18 at 13:45; Stop 03/05/18 at 13:46; Status DC Iohexol (Omnipaque 300 Mg/ml) 75 ml 1X ONCE IV Last administered on 03/05/18at 13:45; Start 03/05/18 at 13:45; Stop 03/05/18 at 13:46; Status DC Ondansetron HCl (Zofran) 4 mg 1X ONCE IV Last administered on 03/05/18at 13:51 ; Start 03/05/18 at 13:45; Stop 03/05/18 at 13:47; Status DC Info (CONTRAST GIVEN -- Rx MONITORING) 1 each PRN DAILY PRN MC SEE COMMENTS Last administered on 03/06/18at 13:16; Start 03/05/18 at 14:00; Stop 03/07/18 at 13:59; Status DC Ondansetron HCl (Zofran) 4 mg PRN Q8HRS PRN IV NAUSEA/VOMITING; Start 03/05/18 at 17:00; Stop 03/06/18 at 16:59; Status DC Fentanyl Citrate (Fentanyl 2ml Vial) 50 mcg PRN Q2HR PRN IV PAIN Last administered on 03/06/18at 06:28; Start 03/05/18 at 17:00; Stop 03/06/18 at 16:59 ; Status DC Sodium Chloride 1,000 ml @ 100 mls/hr Q10H IV Last administered on 03/06/18at 05:55; Start 03/05/18 at 17:00; Stop 03/06/18 at 16:59; Status DC Piperacillin Sod/ Tazobactam Sod 3.375 gm/Sodium Chloride 50 ml @ 100 mls/hr Q6HRS IV Last administered on 03/09/18at 05:06; Start 03/05/18 at 17:15 Ondansetron HCl (Zofran) 4 mg PRN Q6HRS PRN IV NAUSEA/VOMITING; Start 03/06/18 at 07:30; Stop 03/07/18 at 07:29; Status DC Fentanyl Citrate (Fentanyl 2ml Vial) 25 mcg PRN Q5MIN PRN IV MILD PAIN; Start 03/06/18 at 07:30; Stop 03/07/18 at 07:29; Status DC Fentanyl Citrate (Fentanyl 2ml Vial) 50 mcg PRN Q5MIN PRN IV MODERATE TO SEVERE PAIN Last administered on 03/06/18at 15:04; Start 03/06/18 at 07:30; Stop 03/07/18 at 07:29; Status DC Morphine Sulfate (Morphine Sulfate) 1 mg PRN Q10MIN PRN IV SEVERE PAIN; Start 03/06/18 at 07:30; Stop 03/07/18 at 07:29; Status DC Ringer's Solution 1,000 ml @ 30 mls/hr Q24H IV Last administered on 03/06/18at 10:44; Start 03/06/18 at 07:21; Stop 03/06/18 at 19:20; Status DC Lidocaine HCl (Xylocaine-Mpf 1% 2ml Vial) 2 ml PRN 1X PRN ID PRIOR TO IV START ; Start 03/06/18 at 07:30; Stop 03/07/18 at 07:29; Status DC Hydromorphone HCl (Dilaudid) 0.5 mg PRN Q10MIN PRN IV SEV PAIN, Second choice; Start 03/06/18 at 07:30; Stop 03/07/18 at 07:29; Status DC Prochlorperazine Edisylate (Compazine) 5 mg PACU PRN PRN IV NAUSEA, MRX1; Start 03/06/18 at 07:30; Stop 03/07/18 at 07:29; Status DC Rocuronium Anderson (Zemuron) 50 mg STK-MED ONCE .ROUTE ; Start 03/06/18 at 11:58 ; Stop 03/06/18 at 11:59; Status DC Fentanyl Citrate (Fentanyl 2ml Vial) 100 mcg STK-MED ONCE .ROUTE ; Start at 11:58; Stop 03/06/18 at 11:59; Status DC Glycopyrrolate (Robinul) 1 mg STK-MED ONCE .ROUTE ; Start 03/06/18 at 11:59; Stop 03/06/18 at 12:00; Status DC Sevoflurane (Ultane) 60 ml STK-MED ONCE IH ; Start 03/06/18 at 12:20; Stop 03/06 at 12:21; Status DC Dexamethasone Sodium Phosphate (Decadron) 20 mg STK-MED ONCE .ROUTE ; Start at 12:22; Stop 03/06/18 at 12:23; Status DC Propofol 20 ml @ As Directed STK-MED ONCE IV ; Start 03/06/18 at 12:22; Stop at 12:23; Status DC Lidocaine HCl (Lidocaine Pf 2% Vial) 5 ml STK-MED ONCE .ROUTE ; Start 03/06/18 at 12:22; Stop 03/06/18 at 12:23; Status DC Ketorolac Tromethamine (Toradol For Or Only) 30 mg STK-MED ONCE INJ ; Start at 12:22; Stop 03/06/18 at 12:23; Status DC Ondansetron HCl (Zofran) 4 mg STK-MED ONCE .ROUTE ; Start 03/06/18 at 12:22; Stop 03/06/18 at 12:23; Status DC Bupivacaine HCl/ Epinephrine Bitart (Marcaine-Epi 0.5%-[id number]) 50 ml STK-MED ONCE .ROUTE ; Start 03/06/18 at 11:26; Stop 03/06/18 at 12:27; Status DC Iohexol (Omnipaque 300 Mg/ml) 100 ml STK-MED ONCE .ROUTE ; Start 03/06/18 at 11: 26; Stop 03/06/18 at 12:27; Status DC Cellulose (Surgicel Hemostat 4x8) 1 each STK-MED ONCE .ROUTE ; Start 03/06/18 at 11:27; Stop 03/06/18 at 12:27; Status DC Glucagon (Glucagen) 1 mg STK-MED ONCE .ROUTE Last administered on 03/06/18at 13: 27; Start 03/06/18 at 12:21; Stop 03/06/18 at 13:22; Status DC Phenylephrine HCl (PHENYLEPHRINE in 0.9% NACL PF) 1 mg STK-MED ONCE IV ; Start 03/06/18 at 13:35; Stop 03/06/18 at 13:36; Status DC Propofol 20 ml @ As Directed STK-MED ONCE IV ; Start 03/06/18 at 13:48; Stop at 13:49; Status DC Oxycodone/ Acetaminophen (Percocet 5/325) 1 tab PRN Q4HRS PRN PO PAIN MILD Last administered on 03/06/18at 17:39; Start 03/06/18 at 14:15 Oxycodone/ Acetaminophen (Percocet 5/325) 2 tab PRN Q4HRS PRN PO PAIN MODERATE TO SEVERE Last administered on 03/06/18at 22:13; Start 03/06/18 at 14:15 Polyethylene Glycol (miraLAX PACKET) 17 gm PRN DAILY PRN PO CONSTIPATION 1ST CHOICE; Start 03/06/18 at 16:00 Pantoprazole Sodium (Protonix) 40 mg DAILYAC PO Last administered on 03/06/18at 17:31; Start 03/06/18 at 16:30; Stop 03/08/18 at 10:01; Status DC Ringer's Solution 1,000 ml @ 50 mls/hr Q20H IV Last administered on 03/07/18at 13:29; Start 03/07/18 at 07:00; Stop 03/07/18 at 18:59; Status DC Fentanyl Citrate (Fentanyl 2ml Vial) 50 mcg PRN Q2HR PRN IV SEVERE PAIN Last administered on 03/09/18at 09:48; Start 03/07/18 at 05:00 Iohexol (Omnipaque 300 Mg/ml) 100 ml STK-MED ONCE .ROUTE ; Start 03/07/18 at 12: 38; Stop 03/07/18 at 12:39; Status DC Ondansetron HCl (Zofran) 4 mg PRN Q6HRS PRN IV NAUSEA/VOMITING Last administered on 03/07/18at 17:10; Start 03/07/18 at 13:00; Stop 03/08/18 at 12:59 ; Status DC Fentanyl Citrate (Fentanyl 2ml Vial) 25 mcg PRN Q5MIN PRN IV MILD PAIN; Start 03/07/18 at 13:00; Stop 03/08/18 at 12:59; Status DC Fentanyl Citrate (Fentanyl 2ml Vial) 50 mcg PRN Q5MIN PRN IV MODERATE TO SEVERE PAIN; Start 03/07/18 at 13:00; Stop 03/08/18 at 12:59; Status DC Morphine Sulfate (Morphine Sulfate) 1 mg PRN Q10MIN PRN IV SEVERE PAIN; Start 03/07/18 at 13:00; Stop 03/08/18 at 12:59; Status DC Ringer's Solution 1,000 ml @ 100 mls/hr Q10H IV Last administered on at 13:40; Start 03/07/18 at 12:50; Stop 03/08/18 at 00:49; Status DC Lidocaine HCl (Xylocaine-Mpf 1% 2ml Vial) 2 ml 1X PRN PRN ID IV START; Start at 13:00; Stop 03/08/18 at 12:59; Status DC Hydromorphone HCl (Dilaudid) 0.5 mg PRN Q10MIN PRN IV SEV PAIN, Second choice; Start 03/07/18 at 13:00; Stop 03/08/18 at 12:59; Status DC Prochlorperazine Edisylate (Compazine) 5 mg PACU PRN PRN IV NAUSEA, MRX1; Start 03/07/18 at 13:00; Stop 03/08/18 at 12:59; Status DC Al Hydroxide/Mg Hydroxide (Mylanta Plus Xs) 30 ml PRN Q2HR PRN PO HEARTBURN / GAS; Start 03/07/18 at 20:30 Calcium Carbonate/ Glycine (Tums) 500 mg PRN AFTMEALHC PRN PO INDIGESTION; Start 03/07/18 at 20:30 Multi-Ingredient Mouthwash/Gargle (Gi Cocktail) 20 ml 1X ONCE SWSW ; Start at 21:00; Stop 03/07/18 at 21:01; Status DC Multi-Ingredient Mouthwash/Gargle (Gi Cocktail) 20 ml PRN Q15MIN PRN PO CHEST PAIN; Start 03/07/18 at 20:30 Diphenhydramine HCl (Benadryl) 25 mg PRN QHS PRN PO INSOMNIA; Start 03/07/18 at 20:30 Ondansetron HCl (Zofran) 4 mg PRN Q6HRS PRN IV NAUSEA/VOMITING 1ST CHOICE Last administered on 03/08/18at 16:48; Start 03/07/18 at 20:30 Prochlorperazine Edisylate (Compazine) 5 mg PRN Q6HRS PRN IV NAUSEA/VOMITING 2ND CHOICE Last administered on 03/08/18at 22:03; Start 03/07/18 at 20:30 Sodium Chloride 1,000 ml @ 100 mls/hr Q10H IV Last administered on 03/09/18at 05:06; Start 03/07/18 at 21:00 Pantoprazole Sodium (PROTONIX VIAL for IV PUSH) 40 mg DAILYAC IVP Last administered on 03/09/18at 10:01; Start 03/09/18 at 10:30 Acetaminophen (Tylenol Supp) 650 mg PRN Q6HRS PRN [place] MILD PAIN / TEMP Last administered on 03/08/18at 21:11; Start 03/08/18 at 16:45 Saliva Substitute (Biotene Moisturizing Mouth) 2 spray PRN Q15MIN PRN PO DRY MOUTH Last administered on 03/09/18at 05:15; Start 03/09/18 at 03:00 Iohexol (Omnipaque 300 Mg/ml) 75 ml 1X ONCE IV Last administered on 03/09/18at 10:47; Start 03/09/18 at 10:30; Stop 03/09/18 at 10:31; Status DC Active Scripts Active Reported Tums (Calcium Carbonate) 200 Mg Tab.chew 200 Mg PO PRN PRN Milk Of Magnesia (Magnesium Hydroxide) 400 Mg/5 Ml Oral.susp 400 Mg PO PRN Dulcolax (Bisacodyl) 5 Mg Tablet.dr 5 Mg PO PRN DAILY PRN Allopurinol 100 Mg Tablet 1 Tab PO DAILY Claritin (Loratadine) 10 Mg Tablet 1 Tab PO DAILY Mobic (Meloxicam) 7.5 Mg Tablet 1 Tab PO BID Nortriptyline Hcl 75 Mg Capsule 75 Mg PO BID Vitals/I & O Vital Sign - Last 24 Hours 03/08/18 03/08/18 03/08/18 03/08/18 12:42 14:40 15:00 16:48 Temp 100.2 100.2 Pulse 82 Resp 18 B/P (MAP) 127/83 (98) Pulse Ox 93 O2 Delivery Room Air Room Air Room Air Room Air 03/08/18 03/08/18 03/08/18 03/08/18 19:00 19:00 21:11 23:51 Temp 100.9 100.9 Pulse 84 Resp 18 18 18 B/P (MAP) 135/83 (100) Pulse Ox 91 91 91 O2 Delivery Room Air Room Air Room Air Room Air 03/08/18 03/09/18 03/09/18 03/09/18 23:56 02:53 02:56 03:23 Temp 99.4 99.1 99.4 99.1 Pulse 85 85 Resp 18 20 18 18 B/P (MAP) 124/77 (93) 133/84 (100) Pulse Ox 90 90 92 O2 Delivery Room Air Room Air Room Air 03/09/18 03/09/18 03/09/18 03/09/18 05:05 05:35 07:00 07:18 Temp 99.5 99.5 Pulse 73 Resp 18 18 B/P (MAP) 124/81 (95) Pulse Ox 92 92 94 92 O2 Delivery Room Air Room Air Room Air 03/09/18 03/09/18 03/09/18 07:50 08:00 09:48 Pulse Ox 92 O2 Delivery Room Air Room Air Room Air Intake and Output 03/08/18 03/08/18 03/09/18 15:00 23:00 07:00 Intake Total 0 ml Output Total 175 ml Balance -175 ml SONIA EDWARDS III DO Mar 09, 2018 11:58
[2018-03-09] MEDS ORDERED: POTASSIUM CHLORIDE 20 MEQ TABLET.ER. PO ONE (12:30)
--- NOTE | 2018-03-09 13:37 | RAD ---
CT of the abdomen and pelvis with contrast, 03/09/2018: HISTORY: Abdominal pain after ERCP, hyperbilirubinemia Multidetector CT imaging was performed following an IV bolus injection of iodinated contrast material. Comparison is made to a study from 03/05/2018. Small bilateral pleural effusions have developed with mild atelectasis posteriorly in both lower lobes. The gallbladder is surgically absent. A surgical drain extends into the anterior aspect of the upper abdomen. There is a small amount of fluid in the gallbladder fossa region and at the claudia hepatis level adjacent to portal vein and along the superior aspect of the second portion of the duodenum. No free air is evident in this region. The pancreas is unremarkable. There is slight prominence of the intrahepatic bile ducts. The common hepatic duct common bile duct measure 8-9 mm. It has increased in size since the 03/05/2018 exam The spleen is unremarkable. Multiple small intrarenal calculi are again noted. The kidneys show no evidence of obstruction. No ureteral calculus is evident. There is mild aortoiliac calcific plaquing. No abdominal or pelvic adenopathy is seen. The bowel loops are not dilated. There is a trace amount of fluid in the right pararenal space and left paracolic gutter. IMPRESSION: 1. Status post cholecystectomy with a small fluid collection in the gallbladder fossa region. 2. Minimal fluid and edema has developed at the claudia hepatis level. 3. Mild prominence of the central intrahepatic ducts and common bile duct have developed. Partial distal obstruction due to ampullary edema or a residual stone fragment are possibilities. 4. Small bilateral pleural effusions have developed with associated bibasilar atelectasis. 5. Nonobstructing bilateral intrarenal calculi are again noted. PQRS Compliance Statement: One or more of the following individualized dose reduction techniques were utilized for this examination: 1. Automated exposure control 2. Adjustment of the mA and/or kV according to patient size 3. Use of iterative reconstruction technique Electronically signed by: Saúl Santiago MD (03/09/2018 1:34 PM) [facility]
[2018-03-09 15:00] VITALS: BP 122/79
[2018-03-09] MEDS: POTASSIUM CHLORIDE 10MEQ 100 ML IV SCH ×4 (15:09→19:10)
[2018-03-09] MEDS ORDERED: NEOMY/BACITR/POLYMYXIN OINT PACKET. TP SCH (16:00)
[2018-03-09 19:30] VITALS: BP 138/76
[2018-03-09 23:34] VITALS: BP 135/81
[2018-03-10] MEDS: fentaNYL PF VIAL 100 MCG/2 ML VIAL IV PRN ×8 (00:43→15:37)
[2018-03-10] MEDS: PIPERACILLIN/TAZOBACTAM 3.375 GM in IV NORMAL SALINE 50ML 50 ML IV SCH ×5 (00:43→23:30)
[2018-03-10 03:41] VITALS: BP 126/72
[2018-03-10 05:31] LABS: BASO % 0 % (0-3); EOS % 0 % (0-3); HEMATOCRIT 39.7 % (39.0-53.0); HEMOGLOBIN 13.8 g/dL (13.0-17.5); LYMPH % 11 % (24-48); MEAN CORPUSCULAR HEMOGLOBIN 31 pg (25-35); MEAN CORPUSCULAR HGB CONC 35 g/dL (31-37); MEAN CORPUSCULAR VOLUME 90 fL (79-100); MONO # 0.6 x10^3/uL (0.0-1.1); MONO % 7 % (0-9); NEUT # 7.6 x10^3uL (1.8-7.7); NEUT % 82 % (31-73); PLATELET COUNT 170 x10^3/uL (140-400); RED BLOOD COUNT 4.43 x10^6/uL (4.30-5.70); RED CELL DISTRIBUTION WIDTH 13.9 % (11.5-14.5); WHITE BLOOD COUNT 9.3 x10^3/uL (4.0-11.0)
[2018-03-10 05:52] LABS: ALBUMIN 2.9 g/dL (3.4-5.0); ALBUMIN/GLOBULIN RATIO 0.8 (1.0-1.7); CALCIUM 8.6 mg/dL (8.5-10.1); CREATININE 0.9 mg/dL (0.7-1.3); GFR 89.7; POTASSIUM 3.6 mmol/L (3.5-5.1); TOTAL BILIRUBIN 1.9 mg/dL (0.2-1.0); TOTAL PROTEIN 6.7 g/dL (6.4-8.2)
[2018-03-10] MEDS: PANTOPRAZOLE IV PUSH 40 MG VIAL. IVP SCH (06:38)
[2018-03-10 07:00] VITALS: BP 120/74
[2018-03-10] MEDS: IV NORMAL SALINE 1000ML BAG 1,000 ML IV SCH ×2 (09:00→17:22)
[2018-03-10 11:00] VITALS: BP 118/59
--- NOTE | 2018-03-10 11:44 | PDOC ---
SURGICAL PROGRESS NOTE Subjective Pt without new c/o, no N/V Vital Signs Vital Signs Date Time Temp Pulse Resp B/P (MAP) Pulse Ox O2 Delivery O2 Flow Rate FiO2 03/10/18 11:06 Room Air 03/10/18 11:00 97.9 71 18 118/59 (78) 94 97.9 03/10/18 02:52 10.0 I&O Intake and Output 03/10/18 07:00 Intake Total 240 ml Output Total 1680 ml Balance -1440 ml Intake Oral 240 ml Output Urine Total 1510 ml Drainage Total 170 ml # Voids 3 General: Alert, Oriented X3, Cooperative, No acute distress Abdomen: Soft, No tenderness, Other (DIRK serosang) Labs Laboratory Tests Test 03/08/18 21:40 03/09/18 02:30 03/10/18 04:25 Urine Collection Type Unknown Urine Color Vanda Urine Clarity Clear Urine pH 7.0 Urine Specific [place] 1.020 Urine Protein Negative mg/dL (NEG-TRACE) Urine Glucose (UA) Negative mg/dL (NEG) Urine Ketones (Stick) 15 mg/dL (NEG) Urine Blood Negative (NEG) Urine Nitrite Negative (NEG) Urine Bilirubin Moderate (NEG) Urine Urobilinogen Dipstick 2.0 mg/dL (0.2 mg/dL) Urine Leukocyte Esterase Negative (NEG) Urine RBC 0 /HPF (0-2) Urine WBC 0 /HPF (0-4) Urine Squamous Epithelial Cells Few /LPF Urine Bacteria 0 /HPF (0-FEW) White Blood Count 8.8 x10^3/uL (4.0-11.0) 9.3 x10^3/uL (4.0-11.0) Red Blood Count 4.63 x10^6/uL (4.30-5.70) 4.43 x10^6/uL (4.30-5.70) Hemoglobin 14.5 g/dL (13.0-17.5) 13.8 g/dL (13.0-17.5) Hematocrit 41.9 % (39.0-53.0) 39.7 % (39.0-53.0) Mean Corpuscular Volume 91 fL (79-100) 90 fL (79-100) Mean Corpuscular Hemoglobin 31 pg (25-35) 31 pg (25-35) Mean Corpuscular Hemoglobin Concent 35 g/dL (31-37) 35 g/dL (31-37) Red Cell Distribution Width 13.5 % (11.5-14.5) 13.9 % (11.5-14.5) Platelet Count 188 x10^3/uL (140-400) 170 x10^3/uL (140-400) Neutrophils (%) (Auto) 77 % (31-73) 82 % (31-73) Lymphocytes (%) (Auto) 13 % (24-48) 11 % (24-48) Monocytes (%) (Auto) 9 % (0-9) 7 % (0-9) Eosinophils (%) (Auto) 0 % (0-3) 0 % (0-3) Basophils (%) (Auto) 0 % (0-3) 0 % (0-3) Neutrophils # (Auto) 6.8 x10^3uL (1.8-7.7) 7.6 x10^3uL (1.8-7.7) Lymphocytes # (Auto) 1.2 x10^3/uL (1.0-4.8) 1.0 x10^3/uL (1.0-4.8) Monocytes # (Auto) 0.8 x10^3/uL (0.0-1.1) 0.6 x10^3/uL (0.0-1.1) Eosinophils # (Auto) 0.0 x10^3/uL (0.0-0.7) 0.0 x10^3/uL (0.0-0.7) Basophils # (Auto) 0.0 x10^3/uL (0.0-0.2) 0.0 x10^3/uL (0.0-0.2) Sodium Level 139 mmol/L (136-145) 139 mmol/L (136-145) Potassium Level 3.2 mmol/L (3.5-5.1) 3.6 mmol/L (3.5-5.1) Chloride Level 103 mmol/L (98-107) 103 mmol/L (98-107) Carbon Dioxide Level 26 mmol/L (21-32) 26 mmol/L (21-32) Anion Gap 10 (6-14) 10 (6-14) Blood Urea Nitrogen 10 mg/dL (8-26) 11 mg/dL (8-26) Creatinine 1.1 mg/dL (0.7-1.3) 0.9 mg/dL (0.7-1.3) Estimated GFR (Cockcroft-Gault) 71.1 89.7 BUN/Creatinine Ratio 9 (6-20) 12 (6-20) Glucose Level 107 mg/dL (70-99) 111 mg/dL (70-99) Lactic Acid Level 1.2 mmol/L (0.4-2.0) Calcium Level 8.3 mg/dL (8.5-10.1) 8.6 mg/dL (8.5-10.1) Total Bilirubin 5.7 mg/dL (0.2-1.0) 1.9 mg/dL (0.2-1.0) Aspartate Amino Transf (AST/SGOT) 183 U/L (15-37) 44 U/L (15-37) Alanine Aminotransferase (ALT/SGPT) 330 U/L (16-63) 197 U/L (16-63) Alkaline Phosphatase 232 U/L (46-116) 201 U/L (46-116) Total Protein 6.7 g/dL (6.4-8.2) 6.7 g/dL (6.4-8.2) Albumin 3.3 g/dL (3.4-5.0) 2.9 g/dL (3.4-5.0) Albumin/Globulin Ratio 1.0 (1.0-1.7) 0.8 (1.0-1.7) Lipase 787 U/L (73-393) Laboratory Tests Test 03/10/18 04:25 White Blood Count 9.3 x10^3/uL (4.0-11.0) Red Blood Count 4.43 x10^6/uL (4.30-5.70) Hemoglobin 13.8 g/dL (13.0-17.5) Hematocrit 39.7 % (39.0-53.0) Mean Corpuscular Volume 90 fL (79-100) Mean Corpuscular Hemoglobin 31 pg (25-35) Mean Corpuscular Hemoglobin Concent 35 g/dL (31-37) Red Cell Distribution Width 13.9 % (11.5-14.5) Platelet Count 170 x10^3/uL (140-400) Neutrophils (%) (Auto) 82 % (31-73) Lymphocytes (%) (Auto) 11 % (24-48) Monocytes (%) (Auto) 7 % (0-9) Eosinophils (%) (Auto) 0 % (0-3) Basophils (%) (Auto) 0 % (0-3) Neutrophils # (Auto) 7.6 x10^3uL (1.8-7.7) Lymphocytes # (Auto) 1.0 x10^3/uL (1.0-4.8) Monocytes # (Auto) 0.6 x10^3/uL (0.0-1.1) Eosinophils # (Auto) 0.0 x10^3/uL (0.0-0.7) Basophils # (Auto) 0.0 x10^3/uL (0.0-0.2) Sodium Level 139 mmol/L (136-145) Potassium Level 3.6 mmol/L (3.5-5.1) Chloride Level 103 mmol/L (98-107) Carbon Dioxide Level 26 mmol/L (21-32) Anion Gap 10 (6-14) Blood Urea Nitrogen 11 mg/dL (8-26) Creatinine 0.9 mg/dL (0.7-1.3) Estimated GFR (Cockcroft-Gault) 89.7 BUN/Creatinine Ratio 12 (6-20) Glucose Level 111 mg/dL (70-99) Calcium Level 8.6 mg/dL (8.5-10.1) Total Bilirubin 1.9 mg/dL (0.2-1.0) Aspartate Amino Transf (AST/SGOT) 44 U/L (15-37) Alanine Aminotransferase (ALT/SGPT) 197 U/L (16-63) Alkaline Phosphatase 201 U/L (46-116) Total Protein 6.7 g/dL (6.4-8.2) Albumin 2.9 g/dL (3.4-5.0) Albumin/Globulin Ratio 0.8 (1.0-1.7) Problem List Problems Medical Problems: (1) Cholelithiasis Status: Acute Assessment/Plan s/p lap danna LFTs improved start chris and MARCELINO RAMIREZ MD Mar 10, 2018 11:44
--- NOTE | 2018-03-10 11:57 | PDOC ---
PROGRESS NOTES Chief Complaint Chief Complaint CC: S/P day#3 ERCP (indicated a filling defect in the distal duct from a common duct calculus) POD # 4 Cholecystectomy Biliary Cholic Cholelithiasis History of Present Illness History of Present Illness Pt. seen and examined Dw marble helper officers present DIRK drain in place Pt CO continued nausea and lack of appetite Vitals Vitals Vital Signs Date Time Temp Pulse Resp B/P (MAP) Pulse Ox O2 Delivery O2 Flow Rate FiO2 03/10/18 11:06 Room Air 03/10/18 11:00 97.9 71 18 118/59 (78) 94 97.9 03/10/18 02:52 10.0 Physical Exam General: Alert, Oriented X3, Cooperative, No acute distress Heart: Regular rate, Normal S1, Normal S2, No murmurs Lungs: Clear Abdomen: Soft, No tenderness, Other (DIRK serosang) Extremities: No clubbing, No cyanosis Skin: No rashes, No breakdown Labs LABS Laboratory Tests Test 03/10/18 04:25 White Blood Count 9.3 x10^3/uL (4.0-11.0) Red Blood Count 4.43 x10^6/uL (4.30-5.70) Hemoglobin 13.8 g/dL (13.0-17.5) Hematocrit 39.7 % (39.0-53.0) Mean Corpuscular Volume 90 fL (79-100) Mean Corpuscular Hemoglobin 31 pg (25-35) Mean Corpuscular Hemoglobin Concent 35 g/dL (31-37) Red Cell Distribution Width 13.9 % (11.5-14.5) Platelet Count 170 x10^3/uL (140-400) Neutrophils (%) (Auto) 82 % (31-73) Lymphocytes (%) (Auto) 11 % (24-48) Monocytes (%) (Auto) 7 % (0-9) Eosinophils (%) (Auto) 0 % (0-3) Basophils (%) (Auto) 0 % (0-3) Neutrophils # (Auto) 7.6 x10^3uL (1.8-7.7) Lymphocytes # (Auto) 1.0 x10^3/uL (1.0-4.8) Monocytes # (Auto) 0.6 x10^3/uL (0.0-1.1) Eosinophils # (Auto) 0.0 x10^3/uL (0.0-0.7) Basophils # (Auto) 0.0 x10^3/uL (0.0-0.2) Sodium Level 139 mmol/L (136-145) Potassium Level 3.6 mmol/L (3.5-5.1) Chloride Level 103 mmol/L (98-107) Carbon Dioxide Level 26 mmol/L (21-32) Anion Gap 10 (6-14) Blood Urea Nitrogen 11 mg/dL (8-26) Creatinine 0.9 mg/dL (0.7-1.3) Estimated GFR (Cockcroft-Gault) 89.7 BUN/Creatinine Ratio 12 (6-20) Glucose Level 111 mg/dL (70-99) Calcium Level 8.6 mg/dL (8.5-10.1) Total Bilirubin 1.9 mg/dL (0.2-1.0) Aspartate Amino Transf (AST/SGOT) 44 U/L (15-37) Alanine Aminotransferase (ALT/SGPT) 197 U/L (16-63) Alkaline Phosphatase 201 U/L (46-116) Total Protein 6.7 g/dL (6.4-8.2) Albumin 2.9 g/dL (3.4-5.0) Albumin/Globulin Ratio 0.8 (1.0-1.7) Review of Systems Review of Systems CO nausea CO fatigue Assessment and Plan Assessmemt and Plan Problems Medical Problems: (1) Cholelithiasis Status: Acute S/P day #3 ERCP (indicated a filling defect in the distal duct from a common duct calculus) POD # 4 Cholecystectomy Biliary Cholic Cholelithiasis Plan: Advance diet if ok with surgery PRN anti-emetics PT/OT Home meds Appreciate subspecialist input Comment Review of Relevant I have reviewed the following items awilda (where applicable) has been applied. Labs Laboratory Tests Test 03/08/18 21:40 03/09/18 02:30 03/10/18 04:25 Urine Collection Type Unknown Urine Color Vanda Urine Clarity Clear Urine pH 7.0 Urine Specific [place] 1.020 Urine Protein Negative mg/dL (NEG-TRACE) Urine Glucose (UA) Negative mg/dL (NEG) Urine Ketones (Stick) 15 mg/dL (NEG) Urine Blood Negative (NEG) Urine Nitrite Negative (NEG) Urine Bilirubin Moderate (NEG) Urine Urobilinogen Dipstick 2.0 mg/dL (0.2 mg/dL) Urine Leukocyte Esterase Negative (NEG) Urine RBC 0 /HPF (0-2) Urine WBC 0 /HPF (0-4) Urine Squamous Epithelial Cells Few /LPF Urine Bacteria 0 /HPF (0-FEW) White Blood Count 8.8 x10^3/uL (4.0-11.0) 9.3 x10^3/uL (4.0-11.0) Red Blood Count 4.63 x10^6/uL (4.30-5.70) 4.43 x10^6/uL (4.30-5.70) Hemoglobin 14.5 g/dL (13.0-17.5) 13.8 g/dL (13.0-17.5) Hematocrit 41.9 % (39.0-53.0) 39.7 % (39.0-53.0) Mean Corpuscular Volume 91 fL (79-100) 90 fL (79-100) Mean Corpuscular Hemoglobin 31 pg (25-35) 31 pg (25-35) Mean Corpuscular Hemoglobin Concent 35 g/dL (31-37) 35 g/dL (31-37) Red Cell Distribution Width 13.5 % (11.5-14.5) 13.9 % (11.5-14.5) Platelet Count 188 x10^3/uL (140-400) 170 x10^3/uL (140-400) Neutrophils (%) (Auto) 77 % (31-73) 82 % (31-73) Lymphocytes (%) (Auto) 13 % (24-48) 11 % (24-48) Monocytes (%) (Auto) 9 % (0-9) 7 % (0-9) Eosinophils (%) (Auto) 0 % (0-3) 0 % (0-3) Basophils (%) (Auto) 0 % (0-3) 0 % (0-3) Neutrophils # (Auto) 6.8 x10^3uL (1.8-7.7) 7.6 x10^3uL (1.8-7.7) Lymphocytes # (Auto) 1.2 x10^3/uL (1.0-4.8) 1.0 x10^3/uL (1.0-4.8) Monocytes # (Auto) 0.8 x10^3/uL (0.0-1.1) 0.6 x10^3/uL (0.0-1.1) Eosinophils # (Auto) 0.0 x10^3/uL (0.0-0.7) 0.0 x10^3/uL (0.0-0.7) Basophils # (Auto) 0.0 x10^3/uL (0.0-0.2) 0.0 x10^3/uL (0.0-0.2) Sodium Level 139 mmol/L (136-145) 139 mmol/L (136-145) Potassium Level 3.2 mmol/L (3.5-5.1) 3.6 mmol/L (3.5-5.1) Chloride Level 103 mmol/L (98-107) 103 mmol/L (98-107) Carbon Dioxide Level 26 mmol/L (21-32) 26 mmol/L (21-32) Anion Gap 10 (6-14) 10 (6-14) Blood Urea Nitrogen 10 mg/dL (8-26) 11 mg/dL (8-26) Creatinine 1.1 mg/dL (0.7-1.3) 0.9 mg/dL (0.7-1.3) Estimated GFR (Cockcroft-Gault) 71.1 89.7 BUN/Creatinine Ratio 9 (6-20) 12 (6-20) Glucose Level 107 mg/dL (70-99) 111 mg/dL (70-99) Lactic Acid Level 1.2 mmol/L (0.4-2.0) Calcium Level 8.3 mg/dL (8.5-10.1) 8.6 mg/dL (8.5-10.1) Total Bilirubin 5.7 mg/dL (0.2-1.0) 1.9 mg/dL (0.2-1.0) Aspartate Amino Transf (AST/SGOT) 183 U/L (15-37) 44 U/L (15-37) Alanine Aminotransferase (ALT/SGPT) 330 U/L (16-63) 197 U/L (16-63) Alkaline Phosphatase 232 U/L (46-116) 201 U/L (46-116) Total Protein 6.7 g/dL (6.4-8.2) 6.7 g/dL (6.4-8.2) Albumin 3.3 g/dL (3.4-5.0) 2.9 g/dL (3.4-5.0) Albumin/Globulin Ratio 1.0 (1.0-1.7) 0.8 (1.0-1.7) Lipase 787 U/L (73-393) Laboratory Tests Test 03/10/18 04:25 White Blood Count 9.3 x10^3/uL (4.0-11.0) Red Blood Count 4.43 x10^6/uL (4.30-5.70) Hemoglobin 13.8 g/dL (13.0-17.5) Hematocrit 39.7 % (39.0-53.0) Mean Corpuscular Volume 90 fL (79-100) Mean Corpuscular Hemoglobin 31 pg (25-35) Mean Corpuscular Hemoglobin Concent 35 g/dL (31-37) Red Cell Distribution Width 13.9 % (11.5-14.5) Platelet Count 170 x10^3/uL (140-400) Neutrophils (%) (Auto) 82 % (31-73) Lymphocytes (%) (Auto) 11 % (24-48) Monocytes (%) (Auto) 7 % (0-9) Eosinophils (%) (Auto) 0 % (0-3) Basophils (%) (Auto) 0 % (0-3) Neutrophils # (Auto) 7.6 x10^3uL (1.8-7.7) Lymphocytes # (Auto) 1.0 x10^3/uL (1.0-4.8) Monocytes # (Auto) 0.6 x10^3/uL (0.0-1.1) Eosinophils # (Auto) 0.0 x10^3/uL (0.0-0.7) Basophils # (Auto) 0.0 x10^3/uL (0.0-0.2) Sodium Level 139 mmol/L (136-145) Potassium Level 3.6 mmol/L (3.5-5.1) Chloride Level 103 mmol/L (98-107) Carbon Dioxide Level 26 mmol/L (21-32) Anion Gap 10 (6-14) Blood Urea Nitrogen 11 mg/dL (8-26) Creatinine 0.9 mg/dL (0.7-1.3) Estimated GFR (Cockcroft-Gault) 89.7 BUN/Creatinine Ratio 12 (6-20) Glucose Level 111 mg/dL (70-99) Calcium Level 8.6 mg/dL (8.5-10.1) Total Bilirubin 1.9 mg/dL (0.2-1.0) Aspartate Amino Transf (AST/SGOT) 44 U/L (15-37) Alanine Aminotransferase (ALT/SGPT) 197 U/L (16-63) Alkaline Phosphatase 201 U/L (46-116) Total Protein 6.7 g/dL (6.4-8.2) Albumin 2.9 g/dL (3.4-5.0) Albumin/Globulin Ratio 0.8 (1.0-1.7) Microbiology 03/08/18 Blood Culture - Preliminary, Resulted NO GROWTH AFTER 1 DAY Medications Current Medications Sodium Chloride 1,000 ml @ 1,000 mls/hr Q1H IV Last administered on 03/05/18 13:52; Start 03/05/18 at 13:37; Stop 03/05/18 at 14:36; Status DC Fentanyl Citrate (Fentanyl 2ml Vial) 50 mcg 1X ONCE IV Last administered on 13:52; Start 03/05/18 at 13:45; Stop 03/05/18 at 13:46; Status DC Famotidine (Pepcid Vial) 20 mg 1X ONCE IVP Last administered on 03/05/18 13: 51; Start 03/05/18 at 13:45; Stop 03/05/18 at 13:46; Status DC Iohexol (Omnipaque 300 Mg/ml) 75 ml 1X ONCE IV Last administered on 03/05/18 13:45; Start 03/05/18 at 13:45; Stop 03/05/18 at 13:46; Status DC Ondansetron HCl (Zofran) 4 mg 1X ONCE IV Last administered on 03/05/18 13:51 ; Start 03/05/18 at 13:45; Stop 03/05/18 at 13:47; Status DC Info (CONTRAST GIVEN -- Rx MONITORING) 1 each PRN DAILY PRN MC SEE COMMENTS Last administered on 03/06/18at 13:16; Start 03/05/18 at 14:00; Stop 03/07/18 at 13:59; Status DC Ondansetron HCl (Zofran) 4 mg PRN Q8HRS PRN IV NAUSEA/VOMITING; Start 03/05/18 at 17:00; Stop 03/06/18 at 16:59; Status DC Fentanyl Citrate (Fentanyl 2ml Vial) 50 mcg PRN Q2HR PRN IV PAIN Last administered on 03/06/18at 06:28; Start 03/05/18 at 17:00; Stop 03/06/18 at 16:59 ; Status DC Sodium Chloride 1,000 ml @ 100 mls/hr Q10H IV Last administered on 03/06/18at 05:55; Start 03/05/18 at 17:00; Stop 03/06/18 at 16:59; Status DC Piperacillin Sod/ Tazobactam Sod 3.375 gm/Sodium Chloride 50 ml @ 100 mls/hr Q6HRS IV Last administered on 03/10/18at 06:38; Start 03/05/18 at 17:15 Ondansetron HCl (Zofran) 4 mg PRN Q6HRS PRN IV NAUSEA/VOMITING; Start 03/06/18 at 07:30; Stop 03/07/18 at 07:29; Status DC Fentanyl Citrate (Fentanyl 2ml Vial) 25 mcg PRN Q5MIN PRN IV MILD PAIN; Start 03/06/18 at 07:30; Stop 03/07/18 at 07:29; Status DC Fentanyl Citrate (Fentanyl 2ml Vial) 50 mcg PRN Q5MIN PRN IV MODERATE TO SEVERE PAIN Last administered on 03/06/18at 15:04; Start 03/06/18 at 07:30; Stop 03/07/18 at 07:29; Status DC Morphine Sulfate (Morphine Sulfate) 1 mg PRN Q10MIN PRN IV SEVERE PAIN; Start 03/06/18 at 07:30; Stop 03/07/18 at 07:29; Status DC Ringer's Solution 1,000 ml @ 30 mls/hr Q24H IV Last administered on 03/06/18at 10:44; Start 03/06/18 at 07:21; Stop 03/06/18 at 19:20; Status DC Lidocaine HCl (Xylocaine-Mpf 1% 2ml Vial) 2 ml PRN 1X PRN ID PRIOR TO IV START ; Start 03/06/18 at 07:30; Stop 03/07/18 at 07:29; Status DC Hydromorphone HCl (Dilaudid) 0.5 mg PRN Q10MIN PRN IV SEV PAIN, Second choice; Start 03/06/18 at 07:30; Stop 03/07/18 at 07:29; Status DC Prochlorperazine Edisylate (Compazine) 5 mg PACU PRN PRN IV NAUSEA, MRX1; Start 03/06/18 at 07:30; Stop 03/07/18 at 07:29; Status DC Rocuronium [place] (Zemuron) 50 mg STK-MED ONCE .ROUTE ; Start 03/06/18 at 11:58 ; Stop 03/06/18 at 11:59; Status DC Fentanyl Citrate (Fentanyl 2ml Vial) 100 mcg STK-MED ONCE .ROUTE ; Start at 11:58; Stop 03/06/18 at 11:59; Status DC Glycopyrrolate (Robinul) 1 mg STK-MED ONCE .ROUTE ; Start 03/06/18 at 11:59; Stop 03/06/18 at 12:00; Status DC Sevoflurane (Ultane) 60 ml STK-MED ONCE IH ; Start 03/06/18 at 12:20; Stop 03/06 at 12:21; Status DC Dexamethasone Sodium Phosphate (Decadron) 20 mg STK-MED ONCE .ROUTE ; Start at 12:22; Stop 03/06/18 at 12:23; Status DC Propofol 20 ml @ As Directed STK-MED ONCE IV ; Start 03/06/18 at 12:22; Stop at 12:23; Status DC Lidocaine HCl (Lidocaine Pf 2% Vial) 5 ml STK-MED ONCE .ROUTE ; Start 03/06/18 at 12:22; Stop 03/06/18 at 12:23; Status DC Ketorolac Tromethamine (Toradol For Or Only) 30 mg STK-MED ONCE INJ ; Start at 12:22; Stop 03/06/18 at 12:23; Status DC Ondansetron HCl (Zofran) 4 mg STK-MED ONCE .ROUTE ; Start 03/06/18 at 12:22; Stop 03/06/18 at 12:23; Status DC Bupivacaine HCl/ Epinephrine Bitart (Marcaine-Epi 0.5%-[id number]) 50 ml STK-MED ONCE .ROUTE ; Start 03/06/18 at 11:26; Stop 03/06/18 at 12:27; Status DC Iohexol (Omnipaque 300 Mg/ml) 100 ml STK-MED ONCE .ROUTE ; Start 03/06/18 at 11: 26; Stop 03/06/18 at 12:27; Status DC Cellulose (Surgicel Hemostat 4x8) 1 each STK-MED ONCE .ROUTE ; Start 03/06/18 at 11:27; Stop 03/06/18 at 12:27; Status DC Glucagon (Glucagen) 1 mg STK-MED ONCE .ROUTE Last administered on 03/06/18at 13: 27; Start 03/06/18 at 12:21; Stop 03/06/18 at 13:22; Status DC Phenylephrine HCl (PHENYLEPHRINE in 0.9% NACL PF) 1 mg STK-MED ONCE IV ; Start 03/06/18 at 13:35; Stop 03/06/18 at 13:36; Status DC Propofol 20 ml @ As Directed STK-MED ONCE IV ; Start 03/06/18 at 13:48; Stop at 13:49; Status DC Oxycodone/ Acetaminophen (Percocet 5/325) 1 tab PRN Q4HRS PRN PO PAIN MILD Last administered on 03/06/18at 17:39; Start 03/06/18 at 14:15 Oxycodone/ Acetaminophen (Percocet 5/325) 2 tab PRN Q4HRS PRN PO PAIN MODERATE TO SEVERE Last administered on 03/06/18at 22:13; Start 03/06/18 at 14:15 Polyethylene Glycol (miraLAX PACKET) 17 gm PRN DAILY PRN PO CONSTIPATION 1ST CHOICE; Start 03/06/18 at 16:00 Pantoprazole Sodium (Protonix) 40 mg DAILYAC PO Last administered on 03/06/18at 17:31; Start 03/06/18 at 16:30; Stop 03/08/18 at 10:01; Status DC Ringer's Solution 1,000 ml @ 50 mls/hr Q20H IV Last administered on 03/07/18at 13:29; Start 03/07/18 at 07:00; Stop 03/07/18 at 18:59; Status DC Fentanyl Citrate (Fentanyl 2ml Vial) 50 mcg PRN Q2HR PRN IV SEVERE PAIN Last administered on 03/10/18at 11:06; Start 03/07/18 at 05:00 Iohexol (Omnipaque 300 Mg/ml) 100 ml STK-MED ONCE .ROUTE ; Start 03/07/18 at 12: 38; Stop 03/07/18 at 12:39; Status DC Ondansetron HCl (Zofran) 4 mg PRN Q6HRS PRN IV NAUSEA/VOMITING Last administered on 03/07/18at 17:10; Start 03/07/18 at 13:00; Stop 03/08/18 at 12:59 ; Status DC Fentanyl Citrate (Fentanyl 2ml Vial) 25 mcg PRN Q5MIN PRN IV MILD PAIN; Start 03/07/18 at 13:00; Stop 03/08/18 at 12:59; Status DC Fentanyl Citrate (Fentanyl 2ml Vial) 50 mcg PRN Q5MIN PRN IV MODERATE TO SEVERE PAIN; Start 03/07/18 at 13:00; Stop 03/08/18 at 12:59; Status DC Morphine Sulfate (Morphine Sulfate) 1 mg PRN Q10MIN PRN IV SEVERE PAIN; Start 03/07/18 at 13:00; Stop 03/08/18 at 12:59; Status DC Ringer's Solution 1,000 ml @ 100 mls/hr Q10H IV Last administered on at 13:40; Start 03/07/18 at 12:50; Stop 03/08/18 at 00:49; Status DC Lidocaine HCl (Xylocaine-Mpf 1% 2ml Vial) 2 ml 1X PRN PRN ID IV START; Start at 13:00; Stop 03/08/18 at 12:59; Status DC Hydromorphone HCl (Dilaudid) 0.5 mg PRN Q10MIN PRN IV SEV PAIN, Second choice; Start 03/07/18 at 13:00; Stop 03/08/18 at 12:59; Status DC Prochlorperazine Edisylate (Compazine) 5 mg PACU PRN PRN IV NAUSEA, MRX1; Start 03/07/18 at 13:00; Stop 03/08/18 at 12:59; Status DC Al Hydroxide/Mg Hydroxide (Mylanta Plus Xs) 30 ml PRN Q2HR PRN PO HEARTBURN / GAS; Start 03/07/18 at 20:30 Calcium Carbonate/ Glycine (Tums) 500 mg PRN AFTMEALHC PRN PO INDIGESTION; Start 03/07/18 at 20:30 Multi-Ingredient Mouthwash/Gargle (Gi Cocktail) 20 ml 1X ONCE SWSW ; Start at 21:00; Stop 03/07/18 at 21:01; Status DC Multi-Ingredient Mouthwash/Gargle (Gi Cocktail) 20 ml PRN Q15MIN PRN PO CHEST PAIN; Start 03/07/18 at 20:30 Diphenhydramine HCl (Benadryl) 25 mg PRN QHS PRN PO INSOMNIA; Start 03/07/18 at 20:30 Ondansetron HCl (Zofran) 4 mg PRN Q6HRS PRN IV NAUSEA/VOMITING 1ST CHOICE Last administered on 03/08/18at 16:48; Start 03/07/18 at 20:30 Prochlorperazine Edisylate (Compazine) 5 mg PRN Q6HRS PRN IV NAUSEA/VOMITING 2ND CHOICE Last administered on 03/08/18at 22:03; Start 03/07/18 at 20:30 Sodium Chloride 1,000 ml @ 100 mls/hr Q10H IV Last administered on 03/10/18at 09 :00; Start 03/07/18 at 21:00 Pantoprazole Sodium (PROTONIX VIAL for IV PUSH) 40 mg DAILYAC IVP Last administered on 03/10/18at 06:38; Start 03/09/18 at 10:30 Acetaminophen (Tylenol Supp) 650 mg PRN Q6HRS PRN [place] MILD PAIN / TEMP Last administered on 03/08/18at 21:11; Start 03/08/18 at 16:45 Saliva Substitute (Biotene Moisturizing Mouth) 2 spray PRN Q15MIN PRN PO DRY MOUTH Last administered on 03/09/18at 05:15; Start 03/09/18 at 03:00 Iohexol (Omnipaque 300 Mg/ml) 75 ml 1X ONCE IV Last administered on 03/09/18at 10:47; Start 03/09/18 at 10:30; Stop 03/09/18 at 10:31; Status DC Potassium Chloride (Klor-Con) 40 meq 1X ONCE PO ; Start 03/09/18 at 12:30; Stop 03/09/18 at 14:22; Status DC Potassium Chloride/Water 100 ml @ 100 mls/hr Q1H IV Last administered on at 19:10; Start 03/09/18 at 15:00; Stop 03/09/18 at 18:59; Status DC Neomycin/ Polymyxin/ Bacitracin (Triple Antibiotic Ointment) 1 pkt PRN BID TP ; Start 03/09/18 at 16:00 Active Scripts Active Reported Tums (Calcium Carbonate) 200 Mg Tab.chew 200 Mg PO PRN PRN Milk Of Magnesia (Magnesium Hydroxide) 400 Mg/5 Ml Oral.susp 400 Mg PO PRN Dulcolax (Bisacodyl) 5 Mg Tablet.dr 5 Mg PO PRN DAILY PRN Allopurinol 100 Mg Tablet 1 Tab PO DAILY Claritin (Loratadine) 10 Mg Tablet 1 Tab PO DAILY Mobic (Meloxicam) 7.5 Mg Tablet 1 Tab PO BID Nortriptyline Hcl 75 Mg Capsule 75 Mg PO BID Vitals/I & O Vital Sign - Last 24 Hours 03/09/18 03/09/18 03/09/18 03/09/18 12:14 14:20 15:00 16:20 Temp 98.6 98.6 Pulse 81 Resp 18 B/P (MAP) 122/79 (93) Pulse Ox 92 O2 Delivery Room Air Room Air Room Air Room Air 03/09/18 03/09/18 03/09/18 03/09/18 18:21 19:30 20:30 20:33 Temp 99.1 99.1 Pulse 78 Resp 18 18 B/P (MAP) 138/76 (96) Pulse Ox 94 94 O2 Delivery Room Air Room Air Room Air Room Air 03/09/18 03/09/18 03/10/18 03/10/18 22:53 23:34 00:43 02:52 Temp 99.3 99.3 Pulse 74 Resp 18 18 B/P (MAP) 135/81 (99) Pulse Ox 94 97 97 97 O2 Delivery Room Air Room Air Room Air Room Air O2 Flow Rate 10.0 10.0 03/10/18 03/10/18 03/10/18 03/10/18 03:41 04:54 05:29 07:00 Temp 98.5 98.8 98.5 98.8 Pulse 74 59 Resp 18 20 18 B/P (MAP) 126/72 (90) 120/74 (89) Pulse Ox 92 97 97 94 O2 Delivery Room Air Room Air Room Air 03/10/18 03/10/18 03/10/18 03/10/18 07:12 08:10 08:57 09:47 Resp 20 Pulse Ox 97 O2 Delivery Room Air Room Air Room Air Room Air 03/10/18 03/10/18 11:00 11:06 Temp 97.9 97.9 Pulse 71 Resp 18 B/P (MAP) 118/59 (78) Pulse Ox 94 O2 Delivery Room Air Room Air Intake and Output 03/09/18 03/09/18 03/10/18 15:00 23:00 07:00 Intake Total 0 ml 240 ml Output Total 1630 ml 50 ml Balance -1630 ml 190 ml SONIA EDWARDS III DO Mar 10, 2018 11:57
--- NOTE | 2018-03-10 12:42 | PDOC ---
G I PROGRESS NOTE Reason for Follow-up Biliary colic Subjective Pain slowly improving Physical Exam Lungs clear CV S1 S2 ABD +BS, soft, mild epigastric tenderness Review of Relevant I have reviewed the following items awilda (where applicable) has been applied. Labs Laboratory Tests Test 03/08/18 21:40 03/09/18 02:30 03/10/18 04:25 Urine Collection Type Unknown Urine Color Vanda Urine Clarity Clear Urine pH 7.0 Urine Specific Raymond 1.020 Urine Protein Negative mg/dL (NEG-TRACE) Urine Glucose (UA) Negative mg/dL (NEG) Urine Ketones (Stick) 15 mg/dL (NEG) Urine Blood Negative (NEG) Urine Nitrite Negative (NEG) Urine Bilirubin Moderate (NEG) Urine Urobilinogen Dipstick 2.0 mg/dL (0.2 mg/dL) Urine Leukocyte Esterase Negative (NEG) Urine RBC 0 /HPF (0-2) Urine WBC 0 /HPF (0-4) Urine Squamous Epithelial Cells Few /LPF Urine Bacteria 0 /HPF (0-FEW) White Blood Count 8.8 x10^3/uL (4.0-11.0) 9.3 x10^3/uL (4.0-11.0) Red Blood Count 4.63 x10^6/uL (4.30-5.70) 4.43 x10^6/uL (4.30-5.70) Hemoglobin 14.5 g/dL (13.0-17.5) 13.8 g/dL (13.0-17.5) Hematocrit 41.9 % (39.0-53.0) 39.7 % (39.0-53.0) Mean Corpuscular Volume 91 fL (79-100) 90 fL (79-100) Mean Corpuscular Hemoglobin 31 pg (25-35) 31 pg (25-35) Mean Corpuscular Hemoglobin Concent 35 g/dL (31-37) 35 g/dL (31-37) Red Cell Distribution Width 13.5 % (11.5-14.5) 13.9 % (11.5-14.5) Platelet Count 188 x10^3/uL (140-400) 170 x10^3/uL (140-400) Neutrophils (%) (Auto) 77 % (31-73) 82 % (31-73) Lymphocytes (%) (Auto) 13 % (24-48) 11 % (24-48) Monocytes (%) (Auto) 9 % (0-9) 7 % (0-9) Eosinophils (%) (Auto) 0 % (0-3) 0 % (0-3) Basophils (%) (Auto) 0 % (0-3) 0 % (0-3) Neutrophils # (Auto) 6.8 x10^3uL (1.8-7.7) 7.6 x10^3uL (1.8-7.7) Lymphocytes # (Auto) 1.2 x10^3/uL (1.0-4.8) 1.0 x10^3/uL (1.0-4.8) Monocytes # (Auto) 0.8 x10^3/uL (0.0-1.1) 0.6 x10^3/uL (0.0-1.1) Eosinophils # (Auto) 0.0 x10^3/uL (0.0-0.7) 0.0 x10^3/uL (0.0-0.7) Basophils # (Auto) 0.0 x10^3/uL (0.0-0.2) 0.0 x10^3/uL (0.0-0.2) Sodium Level 139 mmol/L (136-145) 139 mmol/L (136-145) Potassium Level 3.2 mmol/L (3.5-5.1) 3.6 mmol/L (3.5-5.1) Chloride Level 103 mmol/L (98-107) 103 mmol/L (98-107) Carbon Dioxide Level 26 mmol/L (21-32) 26 mmol/L (21-32) Anion Gap 10 (6-14) 10 (6-14) Blood Urea Nitrogen 10 mg/dL (8-26) 11 mg/dL (8-26) Creatinine 1.1 mg/dL (0.7-1.3) 0.9 mg/dL (0.7-1.3) Estimated GFR (Cockcroft-Gault) 71.1 89.7 BUN/Creatinine Ratio 9 (6-20) 12 (6-20) Glucose Level 107 mg/dL (70-99) 111 mg/dL (70-99) Lactic Acid Level 1.2 mmol/L (0.4-2.0) Calcium Level 8.3 mg/dL (8.5-10.1) 8.6 mg/dL (8.5-10.1) Total Bilirubin 5.7 mg/dL (0.2-1.0) 1.9 mg/dL (0.2-1.0) Aspartate Amino Transf (AST/SGOT) 183 U/L (15-37) 44 U/L (15-37) Alanine Aminotransferase (ALT/SGPT) 330 U/L (16-63) 197 U/L (16-63) Alkaline Phosphatase 232 U/L (46-116) 201 U/L (46-116) Total Protein 6.7 g/dL (6.4-8.2) 6.7 g/dL (6.4-8.2) Albumin 3.3 g/dL (3.4-5.0) 2.9 g/dL (3.4-5.0) Albumin/Globulin Ratio 1.0 (1.0-1.7) 0.8 (1.0-1.7) Lipase 787 U/L (73-393) Laboratory Tests Test 03/10/18 04:25 White Blood Count 9.3 x10^3/uL (4.0-11.0) Red Blood Count 4.43 x10^6/uL (4.30-5.70) Hemoglobin 13.8 g/dL (13.0-17.5) Hematocrit 39.7 % (39.0-53.0) Mean Corpuscular Volume 90 fL (79-100) Mean Corpuscular Hemoglobin 31 pg (25-35) Mean Corpuscular Hemoglobin Concent 35 g/dL (31-37) Red Cell Distribution Width 13.9 % (11.5-14.5) Platelet Count 170 x10^3/uL (140-400) Neutrophils (%) (Auto) 82 % (31-73) Lymphocytes (%) (Auto) 11 % (24-48) Monocytes (%) (Auto) 7 % (0-9) Eosinophils (%) (Auto) 0 % (0-3) Basophils (%) (Auto) 0 % (0-3) Neutrophils # (Auto) 7.6 x10^3uL (1.8-7.7) Lymphocytes # (Auto) 1.0 x10^3/uL (1.0-4.8) Monocytes # (Auto) 0.6 x10^3/uL (0.0-1.1) Eosinophils # (Auto) 0.0 x10^3/uL (0.0-0.7) Basophils # (Auto) 0.0 x10^3/uL (0.0-0.2) Sodium Level 139 mmol/L (136-145) Potassium Level 3.6 mmol/L (3.5-5.1) Chloride Level 103 mmol/L (98-107) Carbon Dioxide Level 26 mmol/L (21-32) Anion Gap 10 (6-14) Blood Urea Nitrogen 11 mg/dL (8-26) Creatinine 0.9 mg/dL (0.7-1.3) Estimated GFR (Cockcroft-Gault) 89.7 BUN/Creatinine Ratio 12 (6-20) Glucose Level 111 mg/dL (70-99) Calcium Level 8.6 mg/dL (8.5-10.1) Total Bilirubin 1.9 mg/dL (0.2-1.0) Aspartate Amino Transf (AST/SGOT) 44 U/L (15-37) Alanine Aminotransferase (ALT/SGPT) 197 U/L (16-63) Alkaline Phosphatase 201 U/L (46-116) Total Protein 6.7 g/dL (6.4-8.2) Albumin 2.9 g/dL (3.4-5.0) Albumin/Globulin Ratio 0.8 (1.0-1.7) Microbiology 03/08/18 Blood Culture - Preliminary, Resulted NO GROWTH AFTER 1 DAY Medications Current Medications Sodium Chloride 1,000 ml @ 1,000 mls/hr Q1H IV Last administered on 03/05/18at 13:52; Start 03/05/18 at 13:37; Stop 03/05/18 at 14:36; Status DC Fentanyl Citrate (Fentanyl 2ml Vial) 50 mcg 1X ONCE IV Last administered on at 13:52; Start 03/05/18 at 13:45; Stop 03/05/18 at 13:46; Status DC Famotidine (Pepcid Vial) 20 mg 1X ONCE IVP Last administered on 03/05/18at 13: 51; Start 03/05/18 at 13:45; Stop 03/05/18 at 13:46; Status DC Iohexol (Omnipaque 300 Mg/ml) 75 ml 1X ONCE IV Last administered on 03/05/18at 13:45; Start 03/05/18 at 13:45; Stop 03/05/18 at 13:46; Status DC Ondansetron HCl (Zofran) 4 mg 1X ONCE IV Last administered on 03/05/18at 13:51 ; Start 03/05/18 at 13:45; Stop 03/05/18 at 13:47; Status DC Info (CONTRAST GIVEN -- Rx MONITORING) 1 each PRN DAILY PRN MC SEE COMMENTS Last administered on 03/06/18at 13:16; Start 03/05/18 at 14:00; Stop 03/07/18 at 13:59; Status DC Ondansetron HCl (Zofran) 4 mg PRN Q8HRS PRN IV NAUSEA/VOMITING; Start 03/05/18 at 17:00; Stop 03/06/18 at 16:59; Status DC Fentanyl Citrate (Fentanyl 2ml Vial) 50 mcg PRN Q2HR PRN IV PAIN Last administered on 03/06/18at 06:28; Start 03/05/18 at 17:00; Stop 03/06/18 at 16:59 ; Status DC Sodium Chloride 1,000 ml @ 100 mls/hr Q10H IV Last administered on 03/06/18at 05:55; Start 03/05/18 at 17:00; Stop 03/06/18 at 16:59; Status DC Piperacillin Sod/ Tazobactam Sod 3.375 gm/Sodium Chloride 50 ml @ 100 mls/hr Q6HRS IV Last administered on 03/10/18at 06:38; Start 03/05/18 at 17:15 Ondansetron HCl (Zofran) 4 mg PRN Q6HRS PRN IV NAUSEA/VOMITING; Start 03/06/18 at 07:30; Stop 03/07/18 at 07:29; Status DC Fentanyl Citrate (Fentanyl 2ml Vial) 25 mcg PRN Q5MIN PRN IV MILD PAIN; Start 03/06/18 at 07:30; Stop 03/07/18 at 07:29; Status DC Fentanyl Citrate (Fentanyl 2ml Vial) 50 mcg PRN Q5MIN PRN IV MODERATE TO SEVERE PAIN Last administered on 03/06/18at 15:04; Start 03/06/18 at 07:30; Stop 03/07/18 at 07:29; Status DC Morphine Sulfate (Morphine Sulfate) 1 mg PRN Q10MIN PRN IV SEVERE PAIN; Start 03/06/18 at 07:30; Stop 03/07/18 at 07:29; Status DC Ringer's Solution 1,000 ml @ 30 mls/hr Q24H IV Last administered on 03/06/18at 10:44; Start 03/06/18 at 07:21; Stop 03/06/18 at 19:20; Status DC Lidocaine HCl (Xylocaine-Mpf 1% 2ml Vial) 2 ml PRN 1X PRN ID PRIOR TO IV START ; Start 03/06/18 at 07:30; Stop 03/07/18 at 07:29; Status DC Hydromorphone HCl (Dilaudid) 0.5 mg PRN Q10MIN PRN IV SEV PAIN, Second choice; Start 03/06/18 at 07:30; Stop 03/07/18 at 07:29; Status DC Prochlorperazine Edisylate (Compazine) 5 mg PACU PRN PRN IV NAUSEA, MRX1; Start 03/06/18 at 07:30; Stop 03/07/18 at 07:29; Status DC Rocuronium [place] (Zemuron) 50 mg STK-MED ONCE .ROUTE ; Start 03/06/18 at 11:58 ; Stop 03/06/18 at 11:59; Status DC Fentanyl Citrate (Fentanyl 2ml Vial) 100 mcg STK-MED ONCE .ROUTE ; Start at 11:58; Stop 03/06/18 at 11:59; Status DC Glycopyrrolate (Robinul) 1 mg STK-MED ONCE .ROUTE ; Start 03/06/18 at 11:59; Stop 03/06/18 at 12:00; Status DC Sevoflurane (Ultane) 60 ml STK-MED ONCE IH ; Start 03/06/18 at 12:20; Stop 03/06 at 12:21; Status DC Dexamethasone Sodium Phosphate (Decadron) 20 mg STK-MED ONCE .ROUTE ; Start at 12:22; Stop 03/06/18 at 12:23; Status DC Propofol 20 ml @ As Directed STK-MED ONCE IV ; Start 03/06/18 at 12:22; Stop at 12:23; Status DC Lidocaine HCl (Lidocaine Pf 2% Vial) 5 ml STK-MED ONCE .ROUTE ; Start 03/06/18 at 12:22; Stop 03/06/18 at 12:23; Status DC Ketorolac Tromethamine (Toradol For Or Only) 30 mg STK-MED ONCE INJ ; Start at 12:22; Stop 03/06/18 at 12:23; Status DC Ondansetron HCl (Zofran) 4 mg STK-MED ONCE .ROUTE ; Start 03/06/18 at 12:22; Stop 03/06/18 at 12:23; Status DC Bupivacaine HCl/ Epinephrine Bitart (Marcaine-Epi 0.5%-[id number]) 50 ml STK-MED ONCE .ROUTE ; Start 03/06/18 at 11:26; Stop 03/06/18 at 12:27; Status DC Iohexol (Omnipaque 300 Mg/ml) 100 ml STK-MED ONCE .ROUTE ; Start 03/06/18 at 11: 26; Stop 03/06/18 at 12:27; Status DC Cellulose (Surgicel Hemostat 4x8) 1 each STK-MED ONCE .ROUTE ; Start 03/06/18 at 11:27; Stop 03/06/18 at 12:27; Status DC Glucagon (Glucagen) 1 mg STK-MED ONCE .ROUTE Last administered on 03/06/18at 13: 27; Start 03/06/18 at 12:21; Stop 03/06/18 at 13:22; Status DC Phenylephrine HCl (PHENYLEPHRINE in 0.9% NACL PF) 1 mg STK-MED ONCE IV ; Start 03/06/18 at 13:35; Stop 03/06/18 at 13:36; Status DC Propofol 20 ml @ As Directed STK-MED ONCE IV ; Start 03/06/18 at 13:48; Stop at 13:49; Status DC Oxycodone/ Acetaminophen (Percocet 5/325) 1 tab PRN Q4HRS PRN PO PAIN MILD Last administered on 03/06/18at 17:39; Start 03/06/18 at 14:15 Oxycodone/ Acetaminophen (Percocet 5/325) 2 tab PRN Q4HRS PRN PO PAIN MODERATE TO SEVERE Last administered on 03/06/18at 22:13; Start 03/06/18 at 14:15 Polyethylene Glycol (miraLAX PACKET) 17 gm PRN DAILY PRN PO CONSTIPATION 1ST CHOICE; Start 03/06/18 at 16:00 Pantoprazole Sodium (Protonix) 40 mg DAILYAC PO Last administered on 03/06/18at 17:31; Start 03/06/18 at 16:30; Stop 03/08/18 at 10:01; Status DC Ringer's Solution 1,000 ml @ 50 mls/hr Q20H IV Last administered on 03/07/18at 13:29; Start 03/07/18 at 07:00; Stop 03/07/18 at 18:59; Status DC Fentanyl Citrate (Fentanyl 2ml Vial) 50 mcg PRN Q2HR PRN IV SEVERE PAIN Last administered on 03/10/18at 11:06; Start 03/07/18 at 05:00 Iohexol (Omnipaque 300 Mg/ml) 100 ml [employer]Zounds ONCE .ROUTE ; Start 03/07/18 at 12: 38; Stop 03/07/18 at 12:39; Status DC Ondansetron HCl (Zofran) 4 mg PRN Q6HRS PRN IV NAUSEA/VOMITING Last administered on 03/07/18at 17:10; Start 03/07/18 at 13:00; Stop 03/08/18 at 12:59 ; Status DC Fentanyl Citrate (Fentanyl 2ml Vial) 25 mcg PRN Q5MIN PRN IV MILD PAIN; Start 03/07/18 at 13:00; Stop 03/08/18 at 12:59; Status DC Fentanyl Citrate (Fentanyl 2ml Vial) 50 mcg PRN Q5MIN PRN IV MODERATE TO SEVERE PAIN; Start 03/07/18 at 13:00; Stop 03/08/18 at 12:59; Status DC Morphine Sulfate (Morphine Sulfate) 1 mg PRN Q10MIN PRN IV SEVERE PAIN; Start 03/07/18 at 13:00; Stop 03/08/18 at 12:59; Status DC Ringer's Solution 1,000 ml @ 100 mls/hr Q10H IV Last administered on at 13:40; Start 03/07/18 at 12:50; Stop 03/08/18 at 00:49; Status DC Lidocaine HCl (Xylocaine-Mpf 1% 2ml Vial) 2 ml 1X PRN PRN ID IV START; Start at 13:00; Stop 03/08/18 at 12:59; Status DC Hydromorphone HCl (Dilaudid) 0.5 mg PRN Q10MIN PRN IV SEV PAIN, Second choice; Start 03/07/18 at 13:00; Stop 03/08/18 at 12:59; Status DC Prochlorperazine Edisylate (Compazine) 5 mg PACU PRN PRN IV NAUSEA, MRX1; Start 03/07/18 at 13:00; Stop 03/08/18 at 12:59; Status DC Al Hydroxide/Mg Hydroxide (Mylanta Plus Xs) 30 ml PRN Q2HR PRN PO HEARTBURN / GAS; Start 03/07/18 at 20:30 Calcium Carbonate/ Glycine (Tums) 500 mg PRN AFTMEALHC PRN PO INDIGESTION; Start 03/07/18 at 20:30 Multi-Ingredient Mouthwash/Gargle (Gi Cocktail) 20 ml 1X ONCE SWSW ; Start at 21:00; Stop 03/07/18 at 21:01; Status DC Multi-Ingredient Mouthwash/Gargle (Gi Cocktail) 20 ml PRN Q15MIN PRN PO CHEST PAIN; Start 03/07/18 at 20:30 Diphenhydramine HCl (Benadryl) 25 mg PRN QHS PRN PO INSOMNIA; Start 03/07/18 at 20:30 Ondansetron HCl (Zofran) 4 mg PRN Q6HRS PRN IV NAUSEA/VOMITING 1ST CHOICE Last administered on 03/08/18at 16:48; Start 03/07/18 at 20:30 Prochlorperazine Edisylate (Compazine) 5 mg PRN Q6HRS PRN IV NAUSEA/VOMITING 2ND CHOICE Last administered on 03/08/18at 22:03; Start 03/07/18 at 20:30 Sodium Chloride 1,000 ml @ 100 mls/hr Q10H IV Last administered on 03/10/18at 09 :00; Start 03/07/18 at 21:00 Pantoprazole Sodium (PROTONIX VIAL for IV PUSH) 40 mg DAILYAC IVP Last administered on 03/10/18at 06:38; Start 03/09/18 at 10:30 Acetaminophen (Tylenol Supp) 650 mg PRN Q6HRS PRN CO MILD PAIN / TEMP Last administered on 03/08/18at 21:11; Start 03/08/18 at 16:45 Saliva Substitute (Biotene Moisturizing Mouth) 2 spray PRN Q15MIN PRN PO DRY MOUTH Last administered on 03/09/18at 05:15; Start 03/09/18 at 03:00 Iohexol (Omnipaque 300 Mg/ml) 75 ml 1X ONCE IV Last administered on 03/09/18at 10:47; Start 03/09/18 at 10:30; Stop 03/09/18 at 10:31; Status DC Potassium Chloride (Klor-Con) 40 meq 1X ONCE PO ; Start 03/09/18 at 12:30; Stop 03/09/18 at 14:22; Status DC Potassium Chloride/Water 100 ml @ 100 mls/hr Q1H IV Last administered on at 19:10; Start 03/09/18 at 15:00; Stop 03/09/18 at 18:59; Status DC Neomycin/ Polymyxin/ Bacitracin (Triple Antibiotic Ointment) 1 pkt PRN BID TP ; Start 03/09/18 at 16:00 Active Scripts Active Reported Tums (Calcium Carbonate) 200 Mg Tab.chew 200 Mg PO PRN PRN Milk Of Magnesia (Magnesium Hydroxide) 400 Mg/5 Ml Oral.susp 400 Mg PO PRN Dulcolax (Bisacodyl) 5 Mg Tablet.dr 5 Mg PO PRN DAILY PRN Allopurinol 100 Mg Tablet 1 Tab PO DAILY Claritin (Loratadine) 10 Mg Tablet 1 Tab PO DAILY Mobic (Meloxicam) 7.5 Mg Tablet 1 Tab PO BID Nortriptyline Hcl 75 Mg Capsule 75 Mg PO BID Vitals/I & O Vital Sign - Last 24 Hours 03/09/18 03/09/18 03/09/18 03/09/18 14:20 15:00 16:20 18:21 Temp 98.6 98.6 Pulse 81 Resp 18 B/P (MAP) 122/79 (93) Pulse Ox 92 O2 Delivery Room Air Room Air Room Air Room Air 03/09/18 03/09/18 03/09/18 03/09/18 19:30 20:30 20:33 22:53 Temp 99.1 99.1 Pulse 78 Resp 18 18 B/P (MAP) 138/76 (96) Pulse Ox 94 94 94 O2 Delivery Room Air Room Air Room Air Room Air O2 Flow Rate 10.0 03/09/18 03/10/18 03/10/18 03/10/18 23:34 00:43 02:52 03:41 Temp 99.3 98.5 99.3 98.5 Pulse 74 74 Resp 18 18 18 B/P (MAP) 135/81 (99) 126/72 (90) Pulse Ox 97 97 97 92 O2 Delivery Room Air Room Air Room Air Room Air O2 Flow Rate 10.0 03/10/18 03/10/18 03/10/18 03/10/18 04:54 05:29 07:00 07:12 Temp 98.8 98.8 Pulse 59 Resp 20 18 20 B/P (MAP) 120/74 (89) Pulse Ox 97 97 94 97 O2 Delivery Room Air Room Air Room Air 03/10/18 03/10/18 03/10/18 03/10/18 08:10 08:57 09:47 11:00 Temp 97.9 97.9 Pulse 71 Resp 18 B/P (MAP) 118/59 (78) Pulse Ox 94 O2 Delivery Room Air Room Air Room Air Room Air 03/10/18 11:06 O2 Delivery Room Air Intake and Output 03/09/18 03/09/18 03/10/18 15:00 23:00 07:00 Intake Total 0 ml 240 ml Output Total 1630 ml 50 ml Balance -1630 ml 190 ml Problem List Problems Medical Problems: (1) Cholelithiasis Status: Acute Assessment Biliary colic- s/p lap danna/ercp with improving pancreatitis. Advance diet and activity as tolerated. CPM ROBIN SUNG MD Mar 10, 2018 12:42
[2018-03-10] MEDS: oxyCODONE/APAP 5/325 1 TAB TABLET PO PRN ×3 (13:13→21:29)
[2018-03-10 15:00] VITALS: BP 117/75
[2018-03-10 19:00] VITALS: BP 123/77
[2018-03-10] MEDS: ONDANSETRON PF 4 MG/2 ML VIAL. IV PRN (22:04)
[2018-03-10 23:00] VITALS: BP 115/71
[2018-03-11] MEDS: PROCHLORPERAZINE 10 MG/2 ML VIAL. IV PRN (02:22)
[2018-03-11 03:00] VITALS: BP 114/82
[2018-03-11] MEDS: oxyCODONE/APAP 5/325 1 TAB TABLET PO PRN ×4 (03:41→21:18)
[2018-03-11 05:11] LABS: BASO % 1 % (0-3); EOS # 0.2 x10^3/uL (0.0-0.7); EOS % 2 % (0-3); HEMATOCRIT 39.1 % (39.0-53.0); HEMOGLOBIN 13.6 g/dL (13.0-17.5); LYMPH # 0.9 x10^3/uL (1.0-4.8); LYMPH % 14 % (24-48); MEAN CORPUSCULAR HEMOGLOBIN 31 pg (25-35); MEAN CORPUSCULAR HGB CONC 35 g/dL (31-37); MEAN CORPUSCULAR VOLUME 90 fL (79-100); MONO # 0.6 x10^3/uL (0.0-1.1); MONO % 9 % (0-9); NEUT # 5.1 x10^3uL (1.8-7.7); NEUT % 75 % (31-73); PLATELET COUNT 167 x10^3/uL (140-400); RED BLOOD COUNT 4.34 x10^6/uL (4.30-5.70); RED CELL DISTRIBUTION WIDTH 13.6 % (11.5-14.5); WHITE BLOOD COUNT 6.9 x10^3/uL (4.0-11.0)
[2018-03-11] MEDS: PIPERACILLIN/TAZOBACTAM 3.375 GM in IV NORMAL SALINE 50ML 50 ML IV SCH ×3 (05:44→18:00)
[2018-03-11 07:00] VITALS: BP 129/77
[2018-03-11] MEDS: DOCUSATE SODIUM 100 MG CAPSULE. PO SCH (09:00)
[2018-03-11] MEDS: IV NORMAL SALINE 1000ML BAG 1,000 ML IV SCH ×3 (09:51→21:17)
[2018-03-11] MEDS: PANTOPRAZOLE IV PUSH 40 MG VIAL. IVP SCH (10:06)
--- NOTE | 2018-03-11 10:57 | PDOC ---
SURGICAL PROGRESS NOTE Subjective Pt with c/o pain, bloating, tracy some full liquids, but doesn't want to advance Vital Signs Vital Signs Date Time Temp Pulse Resp B/P (MAP) Pulse Ox O2 Delivery O2 Flow Rate FiO2 03/11/18 09:48 Room Air 03/11/18 07:00 97.6 65 18 129/77 (94) 95 97.6 03/11/18 03:41 10.0 I&O Intake and Output 03/11/18 07:00 Intake Total 350 ml Output Total 150 ml Balance 200 ml Intake Oral 300 ml IV Total 50 ml Drainage Total 150 ml # Voids 4 General: Alert, Oriented X3, Cooperative, No acute distress Abdomen: Soft, Other (DIRK serosang, dressing intact, some TTP RUQ) Labs Laboratory Tests Test 03/10/18 04:25 03/11/18 03:45 White Blood Count 9.3 x10^3/uL (4.0-11.0) 6.9 x10^3/uL (4.0-11.0) Red Blood Count 4.43 x10^6/uL (4.30-5.70) 4.34 x10^6/uL (4.30-5.70) Hemoglobin 13.8 g/dL (13.0-17.5) 13.6 g/dL (13.0-17.5) Hematocrit 39.7 % (39.0-53.0) 39.1 % (39.0-53.0) Mean Corpuscular Volume 90 fL (79-100) 90 fL (79-100) Mean Corpuscular Hemoglobin 31 pg (25-35) 31 pg (25-35) Mean Corpuscular Hemoglobin Concent 35 g/dL (31-37) 35 g/dL (31-37) Red Cell Distribution Width 13.9 % (11.5-14.5) 13.6 % (11.5-14.5) Platelet Count 170 x10^3/uL (140-400) 167 x10^3/uL (140-400) Neutrophils (%) (Auto) 82 % (31-73) 75 % (31-73) Lymphocytes (%) (Auto) 11 % (24-48) 14 % (24-48) Monocytes (%) (Auto) 7 % (0-9) 9 % (0-9) Eosinophils (%) (Auto) 0 % (0-3) 2 % (0-3) Basophils (%) (Auto) 0 % (0-3) 1 % (0-3) Neutrophils # (Auto) 7.6 x10^3uL (1.8-7.7) 5.1 x10^3uL (1.8-7.7) Lymphocytes # (Auto) 1.0 x10^3/uL (1.0-4.8) 0.9 x10^3/uL (1.0-4.8) Monocytes # (Auto) 0.6 x10^3/uL (0.0-1.1) 0.6 x10^3/uL (0.0-1.1) Eosinophils # (Auto) 0.0 x10^3/uL (0.0-0.7) 0.2 x10^3/uL (0.0-0.7) Basophils # (Auto) 0.0 x10^3/uL (0.0-0.2) 0.0 x10^3/uL (0.0-0.2) Sodium Level 139 mmol/L (136-145) Potassium Level 3.6 mmol/L (3.5-5.1) Chloride Level 103 mmol/L (98-107) Carbon Dioxide Level 26 mmol/L (21-32) Anion Gap 10 (6-14) Blood Urea Nitrogen 11 mg/dL (8-26) Creatinine 0.9 mg/dL (0.7-1.3) Estimated GFR (Cockcroft-Gault) 89.7 BUN/Creatinine Ratio 12 (6-20) Glucose Level 111 mg/dL (70-99) Calcium Level 8.6 mg/dL (8.5-10.1) Total Bilirubin 1.9 mg/dL (0.2-1.0) Aspartate Amino Transf (AST/SGOT) 44 U/L (15-37) Alanine Aminotransferase (ALT/SGPT) 197 U/L (16-63) Alkaline Phosphatase 201 U/L (46-116) Total Protein 6.7 g/dL (6.4-8.2) Albumin 2.9 g/dL (3.4-5.0) Albumin/Globulin Ratio 0.8 (1.0-1.7) Laboratory Tests Test 03/11/18 03:45 White Blood Count 6.9 x10^3/uL (4.0-11.0) Red Blood Count 4.34 x10^6/uL (4.30-5.70) Hemoglobin 13.6 g/dL (13.0-17.5) Hematocrit 39.1 % (39.0-53.0) Mean Corpuscular Volume 90 fL (79-100) Mean Corpuscular Hemoglobin 31 pg (25-35) Mean Corpuscular Hemoglobin Concent 35 g/dL (31-37) Red Cell Distribution Width 13.6 % (11.5-14.5) Platelet Count 167 x10^3/uL (140-400) Neutrophils (%) (Auto) 75 % (31-73) Lymphocytes (%) (Auto) 14 % (24-48) Monocytes (%) (Auto) 9 % (0-9) Eosinophils (%) (Auto) 2 % (0-3) Basophils (%) (Auto) 1 % (0-3) Neutrophils # (Auto) 5.1 x10^3uL (1.8-7.7) Lymphocytes # (Auto) 0.9 x10^3/uL (1.0-4.8) Monocytes # (Auto) 0.6 x10^3/uL (0.0-1.1) Eosinophils # (Auto) 0.2 x10^3/uL (0.0-0.7) Basophils # (Auto) 0.0 x10^3/uL (0.0-0.2) Problem List Problems Medical Problems: (1) Cholelithiasis Status: Acute Assessment/Plan s/p lap danna cont supportive care pt not interested in ADAT cont drain MARCELINO CASTELLANO MD Mar 11, 2018 10:57
[2018-03-11 11:00] VITALS: BP 121/76
--- NOTE | 2018-03-11 13:22 | PDOC ---
G I PROGRESS NOTE Reason for Follow-up Biliary colic Subjective Pain slowly improving Physical Exam Lungs clear CV S1 S2 ABD +BS, soft, mild tenderness Review of Relevant I have reviewed the following items awilda (where applicable) has been applied. Labs Laboratory Tests Test 03/10/18 04:25 03/11/18 03:45 White Blood Count 9.3 x10^3/uL (4.0-11.0) 6.9 x10^3/uL (4.0-11.0) Red Blood Count 4.43 x10^6/uL (4.30-5.70) 4.34 x10^6/uL (4.30-5.70) Hemoglobin 13.8 g/dL (13.0-17.5) 13.6 g/dL (13.0-17.5) Hematocrit 39.7 % (39.0-53.0) 39.1 % (39.0-53.0) Mean Corpuscular Volume 90 fL (79-100) 90 fL (79-100) Mean Corpuscular Hemoglobin 31 pg (25-35) 31 pg (25-35) Mean Corpuscular Hemoglobin Concent 35 g/dL (31-37) 35 g/dL (31-37) Red Cell Distribution Width 13.9 % (11.5-14.5) 13.6 % (11.5-14.5) Platelet Count 170 x10^3/uL (140-400) 167 x10^3/uL (140-400) Neutrophils (%) (Auto) 82 % (31-73) 75 % (31-73) Lymphocytes (%) (Auto) 11 % (24-48) 14 % (24-48) Monocytes (%) (Auto) 7 % (0-9) 9 % (0-9) Eosinophils (%) (Auto) 0 % (0-3) 2 % (0-3) Basophils (%) (Auto) 0 % (0-3) 1 % (0-3) Neutrophils # (Auto) 7.6 x10^3uL (1.8-7.7) 5.1 x10^3uL (1.8-7.7) Lymphocytes # (Auto) 1.0 x10^3/uL (1.0-4.8) 0.9 x10^3/uL (1.0-4.8) Monocytes # (Auto) 0.6 x10^3/uL (0.0-1.1) 0.6 x10^3/uL (0.0-1.1) Eosinophils # (Auto) 0.0 x10^3/uL (0.0-0.7) 0.2 x10^3/uL (0.0-0.7) Basophils # (Auto) 0.0 x10^3/uL (0.0-0.2) 0.0 x10^3/uL (0.0-0.2) Sodium Level 139 mmol/L (136-145) Potassium Level 3.6 mmol/L (3.5-5.1) Chloride Level 103 mmol/L (98-107) Carbon Dioxide Level 26 mmol/L (21-32) Anion Gap 10 (6-14) Blood Urea Nitrogen 11 mg/dL (8-26) Creatinine 0.9 mg/dL (0.7-1.3) Estimated GFR (Cockcroft-Gault) 89.7 BUN/Creatinine Ratio 12 (6-20) Glucose Level 111 mg/dL (70-99) Calcium Level 8.6 mg/dL (8.5-10.1) Total Bilirubin 1.9 mg/dL (0.2-1.0) Aspartate Amino Transf (AST/SGOT) 44 U/L (15-37) Alanine Aminotransferase (ALT/SGPT) 197 U/L (16-63) Alkaline Phosphatase 201 U/L (46-116) Total Protein 6.7 g/dL (6.4-8.2) Albumin 2.9 g/dL (3.4-5.0) Albumin/Globulin Ratio 0.8 (1.0-1.7) Laboratory Tests Test 03/11/18 03:45 White Blood Count 6.9 x10^3/uL (4.0-11.0) Red Blood Count 4.34 x10^6/uL (4.30-5.70) Hemoglobin 13.6 g/dL (13.0-17.5) Hematocrit 39.1 % (39.0-53.0) Mean Corpuscular Volume 90 fL (79-100) Mean Corpuscular Hemoglobin 31 pg (25-35) Mean Corpuscular Hemoglobin Concent 35 g/dL (31-37) Red Cell Distribution Width 13.6 % (11.5-14.5) Platelet Count 167 x10^3/uL (140-400) Neutrophils (%) (Auto) 75 % (31-73) Lymphocytes (%) (Auto) 14 % (24-48) Monocytes (%) (Auto) 9 % (0-9) Eosinophils (%) (Auto) 2 % (0-3) Basophils (%) (Auto) 1 % (0-3) Neutrophils # (Auto) 5.1 x10^3uL (1.8-7.7) Lymphocytes # (Auto) 0.9 x10^3/uL (1.0-4.8) Monocytes # (Auto) 0.6 x10^3/uL (0.0-1.1) Eosinophils # (Auto) 0.2 x10^3/uL (0.0-0.7) Basophils # (Auto) 0.0 x10^3/uL (0.0-0.2) Microbiology 03/08/18 Blood Culture - Preliminary, Resulted NO GROWTH AFTER 2 DAYS Medications Current Medications Sodium Chloride 1,000 ml @ 1,000 mls/hr Q1H IV Last administered on 03/05/18 13:52; Start 03/05/18 at 13:37; Stop 03/05/18 at 14:36; Status DC Fentanyl Citrate (Fentanyl 2ml Vial) 50 mcg 1X ONCE IV Last administered on 13:52; Start 03/05/18 at 13:45; Stop 03/05/18 at 13:46; Status DC Famotidine (Pepcid Vial) 20 mg 1X ONCE IVP Last administered on 03/05/18at 13: 51; Start 03/05/18 at 13:45; Stop 03/05/18 at 13:46; Status DC Iohexol (Omnipaque 300 Mg/ml) 75 ml 1X ONCE IV Last administered on 03/05/18at 13:45; Start 03/05/18 at 13:45; Stop 03/05/18 at 13:46; Status DC Ondansetron HCl (Zofran) 4 mg 1X ONCE IV Last administered on 03/05/18 13:51 ; Start 03/05/18 at 13:45; Stop 03/05/18 at 13:47; Status DC Info (CONTRAST GIVEN -- Rx MONITORING) 1 each PRN DAILY PRN MC SEE COMMENTS Last administered on 03/06/18at 13:16; Start 03/05/18 at 14:00; Stop 03/07/18 at 13:59; Status DC Ondansetron HCl (Zofran) 4 mg PRN Q8HRS PRN IV NAUSEA/VOMITING; Start 03/05/18 at 17:00; Stop 03/06/18 at 16:59; Status DC Fentanyl Citrate (Fentanyl 2ml Vial) 50 mcg PRN Q2HR PRN IV PAIN Last administered on 03/06/18at 06:28; Start 03/05/18 at 17:00; Stop 03/06/18 at 16:59 ; Status DC Sodium Chloride 1,000 ml @ 100 mls/hr Q10H IV Last administered on 03/06/18at 05:55; Start 03/05/18 at 17:00; Stop 03/06/18 at 16:59; Status DC Piperacillin Sod/ Tazobactam Sod 3.375 gm/Sodium Chloride 50 ml @ 100 mls/hr Q6HRS IV Last administered on 03/11/18at 12:18; Start 03/05/18 at 17:15 Ondansetron HCl (Zofran) 4 mg PRN Q6HRS PRN IV NAUSEA/VOMITING; Start 03/06/18 at 07:30; Stop 03/07/18 at 07:29; Status DC Fentanyl Citrate (Fentanyl 2ml Vial) 25 mcg PRN Q5MIN PRN IV MILD PAIN; Start 03/06/18 at 07:30; Stop 03/07/18 at 07:29; Status DC Fentanyl Citrate (Fentanyl 2ml Vial) 50 mcg PRN Q5MIN PRN IV MODERATE TO SEVERE PAIN Last administered on 03/06/18at 15:04; Start 03/06/18 at 07:30; Stop 03/07/18 at 07:29; Status DC Morphine Sulfate (Morphine Sulfate) 1 mg PRN Q10MIN PRN IV SEVERE PAIN; Start 03/06/18 at 07:30; Stop 03/07/18 at 07:29; Status DC Ringer's Solution 1,000 ml @ 30 mls/hr Q24H IV Last administered on 03/06/18at 10:44; Start 03/06/18 at 07:21; Stop 03/06/18 at 19:20; Status DC Lidocaine HCl (Xylocaine-Mpf 1% 2ml Vial) 2 ml PRN 1X PRN ID PRIOR TO IV START ; Start 03/06/18 at 07:30; Stop 03/07/18 at 07:29; Status DC Hydromorphone HCl (Dilaudid) 0.5 mg PRN Q10MIN PRN IV SEV PAIN, Second choice; Start 03/06/18 at 07:30; Stop 03/07/18 at 07:29; Status DC Prochlorperazine Edisylate (Compazine) 5 mg PACU PRN PRN IV NAUSEA, MRX1; Start 03/06/18 at 07:30; Stop 03/07/18 at 07:29; Status DC Rocuronium [place] (Zemuron) 50 mg STK-MED ONCE .ROUTE ; Start 03/06/18 at 11:58 ; Stop 03/06/18 at 11:59; Status DC Fentanyl Citrate (Fentanyl 2ml Vial) 100 mcg STK-MED ONCE .ROUTE ; Start at 11:58; Stop 03/06/18 at 11:59; Status DC Glycopyrrolate (Robinul) 1 mg STK-MED ONCE .ROUTE ; Start 03/06/18 at 11:59; Stop 03/06/18 at 12:00; Status DC Sevoflurane (Ultane) 60 ml STK-MED ONCE IH ; Start 03/06/18 at 12:20; Stop 03/06 at 12:21; Status DC Dexamethasone Sodium Phosphate (Decadron) 20 mg STK-MED ONCE .ROUTE ; Start at 12:22; Stop 03/06/18 at 12:23; Status DC Propofol 20 ml @ As Directed STK-MED ONCE IV ; Start 03/06/18 at 12:22; Stop at 12:23; Status DC Lidocaine HCl (Lidocaine Pf 2% Vial) 5 ml STK-MED ONCE .ROUTE ; Start 03/06/18 at 12:22; Stop 03/06/18 at 12:23; Status DC Ketorolac Tromethamine (Toradol For Or Only) 30 mg STK-MED ONCE INJ ; Start at 12:22; Stop 03/06/18 at 12:23; Status DC Ondansetron HCl (Zofran) 4 mg STK-MED ONCE .ROUTE ; Start 03/06/18 at 12:22; Stop 03/06/18 at 12:23; Status DC Bupivacaine HCl/ Epinephrine Bitart (Marcaine-Epi 0.5%-1:501616) 50 ml STK-MED ONCE .ROUTE ; Start 03/06/18 at 11:26; Stop 03/06/18 at 12:27; Status DC Iohexol (Omnipaque 300 Mg/ml) 100 ml STK-MED ONCE .ROUTE ; Start 03/06/18 at 11: 26; Stop 03/06/18 at 12:27; Status DC Cellulose (Surgicel Hemostat 4x8) 1 each STK-MED ONCE .ROUTE ; Start 03/06/18 at 11:27; Stop 03/06/18 at 12:27; Status DC Glucagon (Glucagen) 1 mg STK-MED ONCE .ROUTE Last administered on 03/06/18at 13: 27; Start 03/06/18 at 12:21; Stop 03/06/18 at 13:22; Status DC Phenylephrine HCl (PHENYLEPHRINE in 0.9% NACL PF) 1 mg STK-MED ONCE IV ; Start 03/06/18 at 13:35; Stop 03/06/18 at 13:36; Status DC Propofol 20 ml @ As Directed STK-MED ONCE IV ; Start 03/06/18 at 13:48; Stop at 13:49; Status DC Oxycodone/ Acetaminophen (Percocet 5/325) 1 tab PRN Q4HRS PRN PO PAIN MILD Last administered on 03/10/18at 13:13; Start 03/06/18 at 14:15 Oxycodone/ Acetaminophen (Percocet 5/325) 2 tab PRN Q4HRS PRN PO PAIN MODERATE TO SEVERE Last administered on 03/11/18at 09:48; Start 03/06/18 at 14:15 Polyethylene Glycol (miraLAX PACKET) 17 gm PRN DAILY PRN PO CONSTIPATION 1ST CHOICE Last administered on 03/11/18at 09:51; Start 03/06/18 at 16:00 Pantoprazole Sodium (Protonix) 40 mg DAILYAC PO Last administered on 03/06/18at 17:31; Start 03/06/18 at 16:30; Stop 03/08/18 at 10:01; Status DC Ringer's Solution 1,000 ml @ 50 mls/hr Q20H IV Last administered on 03/07/18at 13:29; Start 03/07/18 at 07:00; Stop 03/07/18 at 18:59; Status DC Fentanyl Citrate (Fentanyl 2ml Vial) 50 mcg PRN Q2HR PRN IV SEVERE PAIN Last administered on 03/10/18at 15:37; Start 03/07/18 at 05:00; Stop 03/10/18 at 15:59; Status DC Iohexol (Omnipaque 300 Mg/ml) 100 ml [employer] ONCE .ROUTE ; Start 03/07/18 at 12: 38; Stop 03/07/18 at 12:39; Status DC Ondansetron HCl (Zofran) 4 mg PRN Q6HRS PRN IV NAUSEA/VOMITING Last administered on 03/07/18at 17:10; Start 03/07/18 at 13:00; Stop 03/08/18 at 12:59 ; Status DC Fentanyl Citrate (Fentanyl 2ml Vial) 25 mcg PRN Q5MIN PRN IV MILD PAIN; Start 03/07/18 at 13:00; Stop 03/08/18 at 12:59; Status DC Fentanyl Citrate (Fentanyl 2ml Vial) 50 mcg PRN Q5MIN PRN IV MODERATE TO SEVERE PAIN; Start 03/07/18 at 13:00; Stop 03/08/18 at 12:59; Status DC Morphine Sulfate (Morphine Sulfate) 1 mg PRN Q10MIN PRN IV SEVERE PAIN; Start 03/07/18 at 13:00; Stop 03/08/18 at 12:59; Status DC Ringer's Solution 1,000 ml @ 100 mls/hr Q10H IV Last administered on at 13:40; Start 03/07/18 at 12:50; Stop 03/08/18 at 00:49; Status DC Lidocaine HCl (Xylocaine-Mpf 1% 2ml Vial) 2 ml 1X PRN PRN ID IV START; Start at 13:00; Stop 03/08/18 at 12:59; Status DC Hydromorphone HCl (Dilaudid) 0.5 mg PRN Q10MIN PRN IV SEV PAIN, Second choice; Start 03/07/18 at 13:00; Stop 03/08/18 at 12:59; Status DC Prochlorperazine Edisylate (Compazine) 5 mg PACU PRN PRN IV NAUSEA, MRX1; Start 03/07/18 at 13:00; Stop 03/08/18 at 12:59; Status DC Al Hydroxide/Mg Hydroxide (Mylanta Plus Xs) 30 ml PRN Q2HR PRN PO HEARTBURN / GAS; Start 03/07/18 at 20:30 Calcium Carbonate/ Glycine (Tums) 500 mg PRN AFTMEALHC PRN PO INDIGESTION; Start 03/07/18 at 20:30 Multi-Ingredient Mouthwash/Gargle (Gi Cocktail) 20 ml 1X ONCE SWSW ; Start at 21:00; Stop 03/07/18 at 21:01; Status DC Multi-Ingredient Mouthwash/Gargle (Gi Cocktail) 20 ml PRN Q15MIN PRN PO CHEST PAIN; Start 03/07/18 at 20:30 Diphenhydramine HCl (Benadryl) 25 mg PRN QHS PRN PO INSOMNIA; Start 03/07/18 at 20:30 Ondansetron HCl (Zofran) 4 mg PRN Q6HRS PRN IV NAUSEA/VOMITING 1ST CHOICE Last administered on 03/10/18at 22:04; Start 03/07/18 at 20:30 Prochlorperazine Edisylate (Compazine) 5 mg PRN Q6HRS PRN IV NAUSEA/VOMITING 2ND CHOICE Last administered on 03/11/18at 02:22; Start 03/07/18 at 20:30 Sodium Chloride 1,000 ml @ 100 mls/hr Q10H IV Last administered on 03/11/18at 12 :19; Start 03/07/18 at 21:00 Pantoprazole Sodium (PROTONIX VIAL for IV PUSH) 40 mg DAILYAC IVP Last administered on 03/11/18at 10:06; Start 03/09/18 at 10:30 Acetaminophen (Tylenol Supp) 650 mg PRN Q6HRS PRN [place] MILD PAIN / TEMP Last administered on 03/08/18at 21:11; Start 03/08/18 at 16:45 Saliva Substitute (Biotene Moisturizing Mouth) 2 spray PRN Q15MIN PRN PO DRY MOUTH Last administered on 03/09/18at 05:15; Start 03/09/18 at 03:00 Iohexol (Omnipaque 300 Mg/ml) 75 ml 1X ONCE IV Last administered on 03/09/18at 10:47; Start 03/09/18 at 10:30; Stop 03/09/18 at 10:31; Status DC Potassium Chloride (Klor-Con) 40 meq 1X ONCE PO ; Start 03/09/18 at 12:30; Stop 03/09/18 at 14:22; Status DC Potassium Chloride/Water 100 ml @ 100 mls/hr Q1H IV Last administered on at 19:10; Start 03/09/18 at 15:00; Stop 03/09/18 at 18:59; Status DC Neomycin/ Polymyxin/ Bacitracin (Triple Antibiotic Ointment) 1 pkt PRN BID TP ; Start 03/09/18 at 16:00 Docusate Sodium (Colace) 100 mg DAILY PO Last administered on 03/11/18at 09:00; Start 03/11/18 at 09:00 Active Scripts Active Reported Tums (Calcium Carbonate) 200 Mg Tab.chew 200 Mg PO PRN PRN Milk Of Magnesia (Magnesium Hydroxide) 400 Mg/5 Ml Oral.susp 400 Mg PO PRN Dulcolax (Bisacodyl) 5 Mg Tablet.dr 5 Mg PO PRN DAILY PRN Allopurinol 100 Mg Tablet 1 Tab PO DAILY Claritin (Loratadine) 10 Mg Tablet 1 Tab PO DAILY Mobic (Meloxicam) 7.5 Mg Tablet 1 Tab PO BID Nortriptyline Hcl 75 Mg Capsule 75 Mg PO BID Vitals/I & O Vital Sign - Last 24 Hours 03/10/18 03/10/18 03/10/18 03/10/18 13:56 15:00 15:13 15:37 Temp 98.4 98.4 Pulse 59 Resp 16 B/P (MAP) 117/75 (89) Pulse Ox 94 95 O2 Delivery Room Air Room Air Room Air Room Air 03/10/18 03/10/18 03/10/18 03/10/18 15:37 19:00 20:00 21:29 Temp 98.4 98.4 Pulse 59 Resp 18 B/P (MAP) 123/77 (92) Pulse Ox 94 95 95 O2 Delivery Room Air Room Air Room Air Room Air O2 Flow Rate 10.0 03/10/18 03/11/18 03/11/18 03/11/18 23:00 03:00 03:41 07:00 Temp 98.8 98.5 97.6 98.8 98.5 97.6 Pulse 86 70 65 Resp 18 18 18 B/P (MAP) 115/71 (86) 114/82 (93) 129/77 (94) Pulse Ox 91 94 94 95 O2 Delivery Room Air Room Air Room Air Room Air O2 Flow Rate 10.0 03/11/18 03/11/18 03/11/18 09:48 11:00 12:22 Temp 97.9 97.9 Pulse 72 Resp 16 B/P (MAP) 121/76 (91) Pulse Ox 95 95 O2 Delivery Room Air Room Air Room Air O2 Flow Rate 10.0 Intake and Output 03/10/18 03/10/18 03/11/18 15:00 23:00 07:00 Intake Total 0 ml 300 ml 50 ml Output Total 100 ml 50 ml Balance 0 ml 200 ml 0 ml Problem List Problems Medical Problems: (1) Cholelithiasis Status: Acute Assessment Choledocholithiasis- s/p lap danna/ERCP with stone extractions/sphincterotomy, clinically improving, recheck labs in am, advance diet and activity as tolerated ROBIN SUNG MD Mar 11, 2018 13:22
--- NOTE | 2018-03-11 14:20 | PDOC ---
PROGRESS NOTES Chief Complaint Chief Complaint CC: S/P day#4 ERCP (indicated a filling defect in the distal duct from a common duct calculus) POD #5 Cholecystectomy Biliary Cholic Cholelithiasis History of Present Illness History of Present Illness Pt. seen and examined Pt. alert and oriented Pt. 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 Vitals Vitals Vital Signs Date Time Temp Pulse Resp B/P (MAP) Pulse Ox O2 Delivery O2 Flow Rate FiO2 03/11/18 12:22 95 Room Air 10.0 03/11/18 11:00 97.9 72 16 121/76 (91) 97.9 Physical Exam General: Alert, Oriented X3, Cooperative, No acute distress Heart: Regular rate, Normal S1, Normal S2, No murmurs Lungs: Clear Abdomen: Soft, Other (DIRK serosang, dressing intact, some TTP RUQ) Extremities: No clubbing, No cyanosis Skin: No rashes, No breakdown Labs LABS Laboratory Tests Test 03/11/18 03:45 White Blood Count 6.9 x10^3/uL (4.0-11.0) Red Blood Count 4.34 x10^6/uL (4.30-5.70) Hemoglobin 13.6 g/dL (13.0-17.5) Hematocrit 39.1 % (39.0-53.0) Mean Corpuscular Volume 90 fL (79-100) Mean Corpuscular Hemoglobin 31 pg (25-35) Mean Corpuscular Hemoglobin Concent 35 g/dL (31-37) Red Cell Distribution Width 13.6 % (11.5-14.5) Platelet Count 167 x10^3/uL (140-400) Neutrophils (%) (Auto) 75 % (31-73) Lymphocytes (%) (Auto) 14 % (24-48) Monocytes (%) (Auto) 9 % (0-9) Eosinophils (%) (Auto) 2 % (0-3) Basophils (%) (Auto) 1 % (0-3) Neutrophils # (Auto) 5.1 x10^3uL (1.8-7.7) Lymphocytes # (Auto) 0.9 x10^3/uL (1.0-4.8) Monocytes # (Auto) 0.6 x10^3/uL (0.0-1.1) Eosinophils # (Auto) 0.2 x10^3/uL (0.0-0.7) Basophils # (Auto) 0.0 x10^3/uL (0.0-0.2) Review of Systems Review of Systems C/O bloating C/O abd. pain Assessment and Plan Assessmemt and Plan CC: (1) Cholelithiasis (2) Biliary Cholic Assessment S/P day #4 ERCP (indicated a filling defect in the distal duct from a common duct calculus) POD #5 Cholecystectomy Biliary Cholic Cholelithiasis Plan Plan to advance diet from clear liquid fluids if ok w/ surgery Wound care Recheck labs Narcotics prn Continue home meds Hope to discharge back to [facility] by Monday Comment Review of Relevant I have reviewed the following items awilda (where applicable) has been applied. Labs Laboratory Tests Test 03/10/18 04:25 03/11/18 03:45 White Blood Count 9.3 x10^3/uL (4.0-11.0) 6.9 x10^3/uL (4.0-11.0) Red Blood Count 4.43 x10^6/uL (4.30-5.70) 4.34 x10^6/uL (4.30-5.70) Hemoglobin 13.8 g/dL (13.0-17.5) 13.6 g/dL (13.0-17.5) Hematocrit 39.7 % (39.0-53.0) 39.1 % (39.0-53.0) Mean Corpuscular Volume 90 fL (79-100) 90 fL (79-100) Mean Corpuscular Hemoglobin 31 pg (25-35) 31 pg (25-35) Mean Corpuscular Hemoglobin Concent 35 g/dL (31-37) 35 g/dL (31-37) Red Cell Distribution Width 13.9 % (11.5-14.5) 13.6 % (11.5-14.5) Platelet Count 170 x10^3/uL (140-400) 167 x10^3/uL (140-400) Neutrophils (%) (Auto) 82 % (31-73) 75 % (31-73) Lymphocytes (%) (Auto) 11 % (24-48) 14 % (24-48) Monocytes (%) (Auto) 7 % (0-9) 9 % (0-9) Eosinophils (%) (Auto) 0 % (0-3) 2 % (0-3) Basophils (%) (Auto) 0 % (0-3) 1 % (0-3) Neutrophils # (Auto) 7.6 x10^3uL (1.8-7.7) 5.1 x10^3uL (1.8-7.7) Lymphocytes # (Auto) 1.0 x10^3/uL (1.0-4.8) 0.9 x10^3/uL (1.0-4.8) Monocytes # (Auto) 0.6 x10^3/uL (0.0-1.1) 0.6 x10^3/uL (0.0-1.1) Eosinophils # (Auto) 0.0 x10^3/uL (0.0-0.7) 0.2 x10^3/uL (0.0-0.7) Basophils # (Auto) 0.0 x10^3/uL (0.0-0.2) 0.0 x10^3/uL (0.0-0.2) Sodium Level 139 mmol/L (136-145) Potassium Level 3.6 mmol/L (3.5-5.1) Chloride Level 103 mmol/L (98-107) Carbon Dioxide Level 26 mmol/L (21-32) Anion Gap 10 (6-14) Blood Urea Nitrogen 11 mg/dL (8-26) Creatinine 0.9 mg/dL (0.7-1.3) Estimated GFR (Cockcroft-Gault) 89.7 BUN/Creatinine Ratio 12 (6-20) Glucose Level 111 mg/dL (70-99) Calcium Level 8.6 mg/dL (8.5-10.1) Total Bilirubin 1.9 mg/dL (0.2-1.0) Aspartate Amino Transf (AST/SGOT) 44 U/L (15-37) Alanine Aminotransferase (ALT/SGPT) 197 U/L (16-63) Alkaline Phosphatase 201 U/L (46-116) Total Protein 6.7 g/dL (6.4-8.2) Albumin 2.9 g/dL (3.4-5.0) Albumin/Globulin Ratio 0.8 (1.0-1.7) Laboratory Tests Test 03/11/18 03:45 White Blood Count 6.9 x10^3/uL (4.0-11.0) Red Blood Count 4.34 x10^6/uL (4.30-5.70) Hemoglobin 13.6 g/dL (13.0-17.5) Hematocrit 39.1 % (39.0-53.0) Mean Corpuscular Volume 90 fL (79-100) Mean Corpuscular Hemoglobin 31 pg (25-35) Mean Corpuscular Hemoglobin Concent 35 g/dL (31-37) Red Cell Distribution Width 13.6 % (11.5-14.5) Platelet Count 167 x10^3/uL (140-400) Neutrophils (%) (Auto) 75 % (31-73) Lymphocytes (%) (Auto) 14 % (24-48) Monocytes (%) (Auto) 9 % (0-9) Eosinophils (%) (Auto) 2 % (0-3) Basophils (%) (Auto) 1 % (0-3) Neutrophils # (Auto) 5.1 x10^3uL (1.8-7.7) Lymphocytes # (Auto) 0.9 x10^3/uL (1.0-4.8) Monocytes # (Auto) 0.6 x10^3/uL (0.0-1.1) Eosinophils # (Auto) 0.2 x10^3/uL (0.0-0.7) Basophils # (Auto) 0.0 x10^3/uL (0.0-0.2) Microbiology 03/08/18 Blood Culture - Preliminary, Resulted NO GROWTH AFTER 2 DAYS Medications Current Medications Sodium Chloride 1,000 ml @ 1,000 mls/hr Q1H IV Last administered on 03/05/18at 13:52; Start 03/05/18 at 13:37; Stop 03/05/18 at 14:36; Status DC Fentanyl Citrate (Fentanyl 2ml Vial) 50 mcg 1X ONCE IV Last administered on at 13:52; Start 03/05/18 at 13:45; Stop 03/05/18 at 13:46; Status DC Famotidine (Pepcid Vial) 20 mg 1X ONCE IVP Last administered on 03/05/18at 13: 51; Start 03/05/18 at 13:45; Stop 03/05/18 at 13:46; Status DC Iohexol (Omnipaque 300 Mg/ml) 75 ml 1X ONCE IV Last administered on 03/05/18at 13:45; Start 03/05/18 at 13:45; Stop 03/05/18 at 13:46; Status DC Ondansetron HCl (Zofran) 4 mg 1X ONCE IV Last administered on 03/05/18at 13:51 ; Start 03/05/18 at 13:45; Stop 03/05/18 at 13:47; Status DC Info (CONTRAST GIVEN -- Rx MONITORING) 1 each PRN DAILY PRN MC SEE COMMENTS Last administered on 03/06/18at 13:16; Start 03/05/18 at 14:00; Stop 03/07/18 at 13:59; Status DC Ondansetron HCl (Zofran) 4 mg PRN Q8HRS PRN IV NAUSEA/VOMITING; Start 03/05/18 at 17:00; Stop 03/06/18 at 16:59; Status DC Fentanyl Citrate (Fentanyl 2ml Vial) 50 mcg PRN Q2HR PRN IV PAIN Last administered on 03/06/18at 06:28; Start 03/05/18 at 17:00; Stop 03/06/18 at 16:59 ; Status DC Sodium Chloride 1,000 ml @ 100 mls/hr Q10H IV Last administered on 03/06/18at 05:55; Start 03/05/18 at 17:00; Stop 03/06/18 at 16:59; Status DC Piperacillin Sod/ Tazobactam Sod 3.375 gm/Sodium Chloride 50 ml @ 100 mls/hr Q6HRS IV Last administered on 03/11/18at 12:18; Start 03/05/18 at 17:15 Ondansetron HCl (Zofran) 4 mg PRN Q6HRS PRN IV NAUSEA/VOMITING; Start 03/06/18 at 07:30; Stop 03/07/18 at 07:29; Status DC Fentanyl Citrate (Fentanyl 2ml Vial) 25 mcg PRN Q5MIN PRN IV MILD PAIN; Start 03/06/18 at 07:30; Stop 03/07/18 at 07:29; Status DC Fentanyl Citrate (Fentanyl 2ml Vial) 50 mcg PRN Q5MIN PRN IV MODERATE TO SEVERE PAIN Last administered on 03/06/18at 15:04; Start 03/06/18 at 07:30; Stop 03/07/18 at 07:29; Status DC Morphine Sulfate (Morphine Sulfate) 1 mg PRN Q10MIN PRN IV SEVERE PAIN; Start 03/06/18 at 07:30; Stop 03/07/18 at 07:29; Status DC Ringer's Solution 1,000 ml @ 30 mls/hr Q24H IV Last administered on 03/06/18at 10:44; Start 03/06/18 at 07:21; Stop 03/06/18 at 19:20; Status DC Lidocaine HCl (Xylocaine-Mpf 1% 2ml Vial) 2 ml PRN 1X PRN ID PRIOR TO IV START ; Start 03/06/18 at 07:30; Stop 03/07/18 at 07:29; Status DC Hydromorphone HCl (Dilaudid) 0.5 mg PRN Q10MIN PRN IV SEV PAIN, Second choice; Start 03/06/18 at 07:30; Stop 03/07/18 at 07:29; Status DC Prochlorperazine Edisylate (Compazine) 5 mg PACU PRN PRN IV NAUSEA, MRX1; Start 03/06/18 at 07:30; Stop 03/07/18 at 07:29; Status DC Rocuronium [place] (Zemuron) 50 mg STK-MED ONCE .ROUTE ; Start 03/06/18 at 11:58 ; Stop 03/06/18 at 11:59; Status DC Fentanyl Citrate (Fentanyl 2ml Vial) 100 mcg STK-MED ONCE .ROUTE ; Start at 11:58; Stop 03/06/18 at 11:59; Status DC Glycopyrrolate (Robinul) 1 mg STK-MED ONCE .ROUTE ; Start 03/06/18 at 11:59; Stop 03/06/18 at 12:00; Status DC Sevoflurane (Ultane) 60 ml STK-MED ONCE IH ; Start 03/06/18 at 12:20; Stop 03/06 at 12:21; Status DC Dexamethasone Sodium Phosphate (Decadron) 20 mg STK-MED ONCE .ROUTE ; Start at 12:22; Stop 03/06/18 at 12:23; Status DC Propofol 20 ml @ As Directed STK-MED ONCE IV ; Start 03/06/18 at 12:22; Stop at 12:23; Status DC Lidocaine HCl (Lidocaine Pf 2% Vial) 5 ml STK-MED ONCE .ROUTE ; Start 03/06/18 at 12:22; Stop 03/06/18 at 12:23; Status DC Ketorolac Tromethamine (Toradol For Or Only) 30 mg STK-MED ONCE INJ ; Start at 12:22; Stop 03/06/18 at 12:23; Status DC Ondansetron HCl (Zofran) 4 mg STK-MED ONCE .ROUTE ; Start 03/06/18 at 12:22; Stop 03/06/18 at 12:23; Status DC Bupivacaine HCl/ Epinephrine Bitart (Marcaine-Epi 0.5%-[id number]) 50 ml STK-MED ONCE .ROUTE ; Start 03/06/18 at 11:26; Stop 03/06/18 at 12:27; Status DC Iohexol (Omnipaque 300 Mg/ml) 100 ml STK-MED ONCE .ROUTE ; Start 03/06/18 at 11: 26; Stop 03/06/18 at 12:27; Status DC Cellulose (Surgicel Hemostat 4x8) 1 each STK-MED ONCE .ROUTE ; Start 03/06/18 at 11:27; Stop 03/06/18 at 12:27; Status DC Glucagon (Glucagen) 1 mg STK-MED ONCE .ROUTE Last administered on 03/06/18at 13: 27; Start 03/06/18 at 12:21; Stop 03/06/18 at 13:22; Status DC Phenylephrine HCl (PHENYLEPHRINE in 0.9% NACL PF) 1 mg STK-MED ONCE IV ; Start 03/06/18 at 13:35; Stop 03/06/18 at 13:36; Status DC Propofol 20 ml @ As Directed STK-MED ONCE IV ; Start 03/06/18 at 13:48; Stop at 13:49; Status DC Oxycodone/ Acetaminophen (Percocet 5/325) 1 tab PRN Q4HRS PRN PO PAIN MILD Last administered on 03/10/18at 13:13; Start 03/06/18 at 14:15 Oxycodone/ Acetaminophen (Percocet 5/325) 2 tab PRN Q4HRS PRN PO PAIN MODERATE TO SEVERE Last administered on 03/11/18at 09:48; Start 03/06/18 at 14:15 Polyethylene Glycol (miraLAX PACKET) 17 gm PRN DAILY PRN PO CONSTIPATION 1ST CHOICE Last administered on 03/11/18at 09:51; Start 03/06/18 at 16:00 Pantoprazole Sodium (Protonix) 40 mg DAILYAC PO Last administered on 03/06/18at 17:31; Start 03/06/18 at 16:30; Stop 03/08/18 at 10:01; Status DC Ringer's Solution 1,000 ml @ 50 mls/hr Q20H IV Last administered on 03/07/18at 13:29; Start 03/07/18 at 07:00; Stop 03/07/18 at 18:59; Status DC Fentanyl Citrate (Fentanyl 2ml Vial) 50 mcg PRN Q2HR PRN IV SEVERE PAIN Last administered on 03/10/18at 15:37; Start 03/07/18 at 05:00; Stop 03/10/18 at 15:59; Status DC Iohexol (Omnipaque 300 Mg/ml) 100 ml STK-MED ONCE .ROUTE ; Start 03/07/18 at 12: 38; Stop 03/07/18 at 12:39; Status DC Ondansetron HCl (Zofran) 4 mg PRN Q6HRS PRN IV NAUSEA/VOMITING Last administered on 03/07/18at 17:10; Start 03/07/18 at 13:00; Stop 03/08/18 at 12:59 ; Status DC Fentanyl Citrate (Fentanyl 2ml Vial) 25 mcg PRN Q5MIN PRN IV MILD PAIN; Start 03/07/18 at 13:00; Stop 03/08/18 at 12:59; Status DC Fentanyl Citrate (Fentanyl 2ml Vial) 50 mcg PRN Q5MIN PRN IV MODERATE TO SEVERE PAIN; Start 03/07/18 at 13:00; Stop 03/08/18 at 12:59; Status DC Morphine Sulfate (Morphine Sulfate) 1 mg PRN Q10MIN PRN IV SEVERE PAIN; Start 03/07/18 at 13:00; Stop 03/08/18 at 12:59; Status DC Ringer's Solution 1,000 ml @ 100 mls/hr Q10H IV Last administered on at 13:40; Start 03/07/18 at 12:50; Stop 03/08/18 at 00:49; Status DC Lidocaine HCl (Xylocaine-Mpf 1% 2ml Vial) 2 ml 1X PRN PRN ID IV START; Start at 13:00; Stop 03/08/18 at 12:59; Status DC Hydromorphone HCl (Dilaudid) 0.5 mg PRN Q10MIN PRN IV SEV PAIN, Second choice; Start 03/07/18 at 13:00; Stop 03/08/18 at 12:59; Status DC Prochlorperazine Edisylate (Compazine) 5 mg PACU PRN PRN IV NAUSEA, MRX1; Start 03/07/18 at 13:00; Stop 03/08/18 at 12:59; Status DC Al Hydroxide/Mg Hydroxide (Mylanta Plus Xs) 30 ml PRN Q2HR PRN PO HEARTBURN / GAS; Start 03/07/18 at 20:30 Calcium Carbonate/ Glycine (Tums) 500 mg PRN AFTMEALHC PRN PO INDIGESTION; Start 03/07/18 at 20:30 Multi-Ingredient Mouthwash/Gargle (Gi Cocktail) 20 ml 1X ONCE SWSW ; Start at 21:00; Stop 03/07/18 at 21:01; Status DC Multi-Ingredient Mouthwash/Gargle (Gi Cocktail) 20 ml PRN Q15MIN PRN PO CHEST PAIN; Start 03/07/18 at 20:30 Diphenhydramine HCl (Benadryl) 25 mg PRN QHS PRN PO INSOMNIA; Start 03/07/18 at 20:30 Ondansetron HCl (Zofran) 4 mg PRN Q6HRS PRN IV NAUSEA/VOMITING 1ST CHOICE Last administered on 03/10/18at 22:04; Start 03/07/18 at 20:30 Prochlorperazine Edisylate (Compazine) 5 mg PRN Q6HRS PRN IV NAUSEA/VOMITING 2ND CHOICE Last administered on 03/11/18at 02:22; Start 03/07/18 at 20:30 Sodium Chloride 1,000 ml @ 100 mls/hr Q10H IV Last administered on 03/11/18at 12 :19; Start 03/07/18 at 21:00 Pantoprazole Sodium (PROTONIX VIAL for IV PUSH) 40 mg DAILYAC IVP Last administered on 03/11/18at 10:06; Start 03/09/18 at 10:30 Acetaminophen (Tylenol Supp) 650 mg PRN Q6HRS PRN TN MILD PAIN / TEMP Last administered on 03/08/18at 21:11; Start 03/08/18 at 16:45 Saliva Substitute (Biotene Moisturizing Mouth) 2 spray PRN Q15MIN PRN PO DRY MOUTH Last administered on 03/09/18at 05:15; Start 03/09/18 at 03:00 Iohexol (Omnipaque 300 Mg/ml) 75 ml 1X ONCE IV Last administered on 03/09/18at 10:47; Start 03/09/18 at 10:30; Stop 03/09/18 at 10:31; Status DC Potassium Chloride (Klor-Con) 40 meq 1X ONCE PO ; Start 03/09/18 at 12:30; Stop 03/09/18 at 14:22; Status DC Potassium Chloride/Water 100 ml @ 100 mls/hr Q1H IV Last administered on at 19:10; Start 03/09/18 at 15:00; Stop 03/09/18 at 18:59; Status DC Neomycin/ Polymyxin/ Bacitracin (Triple Antibiotic Ointment) 1 pkt PRN BID TP ; Start 03/09/18 at 16:00 Docusate Sodium (Colace) 100 mg DAILY PO Last administered on 03/11/18at 09:00; Start 03/11/18 at 09:00 Active Scripts Active Reported Tums (Calcium Carbonate) 200 Mg Tab.chew 200 Mg PO PRN PRN Milk Of Magnesia (Magnesium Hydroxide) 400 Mg/5 Ml Oral.susp 400 Mg PO PRN Dulcolax (Bisacodyl) 5 Mg Tablet.dr 5 Mg PO PRN DAILY PRN Allopurinol 100 Mg Tablet 1 Tab PO DAILY Claritin (Loratadine) 10 Mg Tablet 1 Tab PO DAILY Mobic (Meloxicam) 7.5 Mg Tablet 1 Tab PO BID Nortriptyline Hcl 75 Mg Capsule 75 Mg PO BID Vitals/I & O Vital Sign - Last 24 Hours 03/10/18 03/10/18 03/10/18 03/10/18 15:00 15:13 15:37 15:37 Temp 98.4 98.4 Pulse 59 Resp 16 B/P (MAP) 117/75 (89) Pulse Ox 95 94 O2 Delivery Room Air Room Air Room Air Room Air 03/10/18 03/10/18 03/10/18 03/10/18 19:00 20:00 21:29 23:00 Temp 98.4 98.8 98.4 98.8 Pulse 59 86 Resp 18 18 B/P (MAP) 123/77 (92) 115/71 (86) Pulse Ox 95 95 91 O2 Delivery Room Air Room Air Room Air Room Air O2 Flow Rate 10.0 03/11/18 03/11/18 03/11/18 03/11/18 03:00 03:41 07:00 09:48 Temp 98.5 97.6 98.5 97.6 Pulse 70 65 Resp 18 18 B/P (MAP) 114/82 (93) 129/77 (94) Pulse Ox 94 94 95 O2 Delivery Room Air Room Air Room Air Room Air O2 Flow Rate 10.0 03/11/18 03/11/18 11:00 12:22 Temp 97.9 97.9 Pulse 72 Resp 16 B/P (MAP) 121/76 (91) Pulse Ox 95 95 O2 Delivery Room Air Room Air O2 Flow Rate 10.0 Intake and Output 03/10/18 03/10/18 03/11/18 15:00 23:00 07:00 Intake Total 0 ml 300 ml 50 ml Output Total 100 ml 50 ml Balance 0 ml 200 ml 0 ml SONIA EDWARDS III DO Mar 11, 2018 14:20
[2018-03-11] MEDS: LIDO:MAALOX 1:1 20 ML SINGLE DOSE. PO PRN (15:09)
[2018-03-11 15:41] VITALS: BP 112/76
[2018-03-11 19:15] VITALS: BP 119/82
[2018-03-11] MEDS: LACTOBACILLUS RHAMNOSUS GG 1 CAPSULE. PO SCH (21:19)
[2018-03-11 23:02] VITALS: BP 125/74
[2018-03-12] MEDS: PIPERACILLIN/TAZOBACTAM 3.375 GM in IV NORMAL SALINE 50ML 50 ML IV SCH ×4 (00:34→18:32)
[2018-03-12 02:59] VITALS: BP 130/60
[2018-03-12] MEDS: oxyCODONE/APAP 5/325 1 TAB TABLET PO PRN ×4 (03:02→21:35)
[2018-03-12 04:58] LABS: BASO % 1 % (0-3); EOS # 0.1 x10^3/uL (0.0-0.7); EOS % 2 % (0-3); HEMATOCRIT 37.9 % (39.0-53.0); HEMOGLOBIN 13.1 g/dL (13.0-17.5); LYMPH # 1.3 x10^3/uL (1.0-4.8); LYMPH % 20 % (24-48); MEAN CORPUSCULAR HEMOGLOBIN 31 pg (25-35); MEAN CORPUSCULAR HGB CONC 35 g/dL (31-37); MEAN CORPUSCULAR VOLUME 90 fL (79-100); MONO # 0.7 x10^3/uL (0.0-1.1); MONO % 10 % (0-9); NEUT # 4.3 x10^3uL (1.8-7.7); NEUT % 67 % (31-73); PLATELET COUNT 198 x10^3/uL (140-400); RED CELL DISTRIBUTION WIDTH 13.9 % (11.5-14.5); WHITE BLOOD COUNT 6.4 x10^3/uL (4.0-11.0)
[2018-03-12 05:43] LABS: ALBUMIN 2.6 g/dL (3.4-5.0); ALBUMIN/GLOBULIN RATIO 0.7 (1.0-1.7); CALCIUM 8.4 mg/dL (8.5-10.1); CREATININE 0.9 mg/dL (0.7-1.3); GFR 89.7; POTASSIUM 3.2 mmol/L (3.5-5.1); TOTAL BILIRUBIN 0.8 mg/dL (0.2-1.0); TOTAL PROTEIN 6.5 g/dL (6.4-8.2)
[2018-03-12 07:00] VITALS: BP 123/79
[2018-03-12] MEDS: PANTOPRAZOLE IV PUSH 40 MG VIAL. IVP SCH (08:54)
[2018-03-12] MEDS: LACTOBACILLUS RHAMNOSUS GG 1 CAPSULE. PO SCH ×2 (08:54→21:34)
[2018-03-12] MEDS: DOCUSATE SODIUM 100 MG CAPSULE. PO SCH (08:55)
--- NOTE | 2018-03-12 10:43 | PDOC ---
PROGRESS NOTES Chief Complaint Chief Complaint CC: S/P day#5 ERCP (indicated a filling defect in the distal duct from a common duct calculus) POD #5 Cholecystectomy Biliary Cholic Cholelithiasis History of Present Illness History of Present Illness Pt. seen and examined Pt. alert and oriented Pt. 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 Vitals Vitals Vital Signs Date Time Temp Pulse Resp B/P (MAP) Pulse Ox O2 Delivery O2 Flow Rate FiO2 03/12/18 08:55 18 92 Room Air 03/12/18 07:00 97.7 67 123/79 (94) 97.7 03/11/18 12:22 10.0 Physical Exam General: Alert, Oriented X3, Cooperative, No acute distress, mild distress Heart: Regular rate, Normal S1, Normal S2, No murmurs Lungs: Clear Abdomen: Soft, Other (DIRK serosang, dressing intact, some TTP RUQ) Extremities: No clubbing, No cyanosis Skin: No rashes, No breakdown, No significant lesion Labs LABS Laboratory Tests Test 03/12/18 04:10 03/12/18 04:15 White Blood Count 6.4 x10^3/uL (4.0-11.0) Red Blood Count 4.20 x10^6/uL (4.30-5.70) Hemoglobin 13.1 g/dL (13.0-17.5) Hematocrit 37.9 % (39.0-53.0) Mean Corpuscular Volume 90 fL (79-100) Mean Corpuscular Hemoglobin 31 pg (25-35) Mean Corpuscular Hemoglobin Concent 35 g/dL (31-37) Red Cell Distribution Width 13.9 % (11.5-14.5) Platelet Count 198 x10^3/uL (140-400) Neutrophils (%) (Auto) 67 % (31-73) Lymphocytes (%) (Auto) 20 % (24-48) Monocytes (%) (Auto) 10 % (0-9) Eosinophils (%) (Auto) 2 % (0-3) Basophils (%) (Auto) 1 % (0-3) Neutrophils # (Auto) 4.3 x10^3uL (1.8-7.7) Lymphocytes # (Auto) 1.3 x10^3/uL (1.0-4.8) Monocytes # (Auto) 0.7 x10^3/uL (0.0-1.1) Eosinophils # (Auto) 0.1 x10^3/uL (0.0-0.7) Basophils # (Auto) 0.0 x10^3/uL (0.0-0.2) Sodium Level 138 mmol/L (136-145) Potassium Level 3.2 mmol/L (3.5-5.1) Chloride Level 102 mmol/L (98-107) Carbon Dioxide Level 26 mmol/L (21-32) Anion Gap 10 (6-14) Blood Urea Nitrogen 5 mg/dL (8-26) Creatinine 0.9 mg/dL (0.7-1.3) Estimated GFR (Cockcroft-Gault) 89.7 BUN/Creatinine Ratio 6 (6-20) Glucose Level 123 mg/dL (70-99) Calcium Level 8.4 mg/dL (8.5-10.1) Total Bilirubin 0.8 mg/dL (0.2-1.0) Aspartate Amino Transf (AST/SGOT) 13 U/L (15-37) Alanine Aminotransferase (ALT/SGPT) 84 U/L (16-63) Alkaline Phosphatase 130 U/L (46-116) Total Protein 6.5 g/dL (6.4-8.2) Albumin 2.6 g/dL (3.4-5.0) Albumin/Globulin Ratio 0.7 (1.0-1.7) Amylase Level 27 U/L (25-115) Lipase 135 U/L (73-393) Assessment and Plan Assessmemt and Plan Problems Medical Problems: (1) Cholelithiasis Status: Acute Comment Review of Relevant I have reviewed the following items awilda (where applicable) has been applied. Labs Laboratory Tests Test 03/11/18 03:45 03/12/18 04:10 03/12/18 04:15 White Blood Count 6.9 x10^3/uL (4.0-11.0) 6.4 x10^3/uL (4.0-11.0) Red Blood Count 4.34 x10^6/uL (4.30-5.70) 4.20 x10^6/uL (4.30-5.70) Hemoglobin 13.6 g/dL (13.0-17.5) 13.1 g/dL (13.0-17.5) Hematocrit 39.1 % (39.0-53.0) 37.9 % (39.0-53.0) Mean Corpuscular Volume 90 fL (79-100) 90 fL (79-100) Mean Corpuscular Hemoglobin 31 pg (25-35) 31 pg (25-35) Mean Corpuscular Hemoglobin Concent 35 g/dL (31-37) 35 g/dL (31-37) Red Cell Distribution Width 13.6 % (11.5-14.5) 13.9 % (11.5-14.5) Platelet Count 167 x10^3/uL (140-400) 198 x10^3/uL (140-400) Neutrophils (%) (Auto) 75 % (31-73) 67 % (31-73) Lymphocytes (%) (Auto) 14 % (24-48) 20 % (24-48) Monocytes (%) (Auto) 9 % (0-9) 10 % (0-9) Eosinophils (%) (Auto) 2 % (0-3) 2 % (0-3) Basophils (%) (Auto) 1 % (0-3) 1 % (0-3) Neutrophils # (Auto) 5.1 x10^3uL (1.8-7.7) 4.3 x10^3uL (1.8-7.7) Lymphocytes # (Auto) 0.9 x10^3/uL (1.0-4.8) 1.3 x10^3/uL (1.0-4.8) Monocytes # (Auto) 0.6 x10^3/uL (0.0-1.1) 0.7 x10^3/uL (0.0-1.1) Eosinophils # (Auto) 0.2 x10^3/uL (0.0-0.7) 0.1 x10^3/uL (0.0-0.7) Basophils # (Auto) 0.0 x10^3/uL (0.0-0.2) 0.0 x10^3/uL (0.0-0.2) Sodium Level 138 mmol/L (136-145) Potassium Level 3.2 mmol/L (3.5-5.1) Chloride Level 102 mmol/L (98-107) Carbon Dioxide Level 26 mmol/L (21-32) Anion Gap 10 (6-14) Blood Urea Nitrogen 5 mg/dL (8-26) Creatinine 0.9 mg/dL (0.7-1.3) Estimated GFR (Cockcroft-Gault) 89.7 BUN/Creatinine Ratio 6 (6-20) Glucose Level 123 mg/dL (70-99) Calcium Level 8.4 mg/dL (8.5-10.1) Total Bilirubin 0.8 mg/dL (0.2-1.0) Aspartate Amino Transf (AST/SGOT) 13 U/L (15-37) Alanine Aminotransferase (ALT/SGPT) 84 U/L (16-63) Alkaline Phosphatase 130 U/L (46-116) Total Protein 6.5 g/dL (6.4-8.2) Albumin 2.6 g/dL (3.4-5.0) Albumin/Globulin Ratio 0.7 (1.0-1.7) Amylase Level 27 U/L (25-115) Lipase 135 U/L (73-393) Laboratory Tests Test 03/12/18 04:10 03/12/18 04:15 White Blood Count 6.4 x10^3/uL (4.0-11.0) Red Blood Count 4.20 x10^6/uL (4.30-5.70) Hemoglobin 13.1 g/dL (13.0-17.5) Hematocrit 37.9 % (39.0-53.0) Mean Corpuscular Volume 90 fL (79-100) Mean Corpuscular Hemoglobin 31 pg (25-35) Mean Corpuscular Hemoglobin Concent 35 g/dL (31-37) Red Cell Distribution Width 13.9 % (11.5-14.5) Platelet Count 198 x10^3/uL (140-400) Neutrophils (%) (Auto) 67 % (31-73) Lymphocytes (%) (Auto) 20 % (24-48) Monocytes (%) (Auto) 10 % (0-9) Eosinophils (%) (Auto) 2 % (0-3) Basophils (%) (Auto) 1 % (0-3) Neutrophils # (Auto) 4.3 x10^3uL (1.8-7.7) Lymphocytes # (Auto) 1.3 x10^3/uL (1.0-4.8) Monocytes # (Auto) 0.7 x10^3/uL (0.0-1.1) Eosinophils # (Auto) 0.1 x10^3/uL (0.0-0.7) Basophils # (Auto) 0.0 x10^3/uL (0.0-0.2) Sodium Level 138 mmol/L (136-145) Potassium Level 3.2 mmol/L (3.5-5.1) Chloride Level 102 mmol/L (98-107) Carbon Dioxide Level 26 mmol/L (21-32) Anion Gap 10 (6-14) Blood Urea Nitrogen 5 mg/dL (8-26) Creatinine 0.9 mg/dL (0.7-1.3) Estimated GFR (Cockcroft-Gault) 89.7 BUN/Creatinine Ratio 6 (6-20) Glucose Level 123 mg/dL (70-99) Calcium Level 8.4 mg/dL (8.5-10.1) Total Bilirubin 0.8 mg/dL (0.2-1.0) Aspartate Amino Transf (AST/SGOT) 13 U/L (15-37) Alanine Aminotransferase (ALT/SGPT) 84 U/L (16-63) Alkaline Phosphatase 130 U/L (46-116) Total Protein 6.5 g/dL (6.4-8.2) Albumin 2.6 g/dL (3.4-5.0) Albumin/Globulin Ratio 0.7 (1.0-1.7) Amylase Level 27 U/L (25-115) Lipase 135 U/L (73-393) Microbiology 03/08/18 Blood Culture - Preliminary, Resulted NO GROWTH AFTER 3 DAYS Medications Current Medications Sodium Chloride 1,000 ml @ 1,000 mls/hr Q1H IV Last administered on 03/05/18at 13:52; Start 03/05/18 at 13:37; Stop 03/05/18 at 14:36; Status DC Fentanyl Citrate (Fentanyl 2ml Vial) 50 mcg 1X ONCE IV Last administered on at 13:52; Start 03/05/18 at 13:45; Stop 03/05/18 at 13:46; Status DC Famotidine (Pepcid Vial) 20 mg 1X ONCE IVP Last administered on 03/05/18at 13: 51; Start 03/05/18 at 13:45; Stop 03/05/18 at 13:46; Status DC Iohexol (Omnipaque 300 Mg/ml) 75 ml 1X ONCE IV Last administered on 03/05/18at 13:45; Start 03/05/18 at 13:45; Stop 03/05/18 at 13:46; Status DC Ondansetron HCl (Zofran) 4 mg 1X ONCE IV Last administered on 03/05/18at 13:51 ; Start 03/05/18 at 13:45; Stop 03/05/18 at 13:47; Status DC Info (CONTRAST GIVEN -- Rx MONITORING) 1 each PRN DAILY PRN MC SEE COMMENTS Last administered on 03/06/18at 13:16; Start 03/05/18 at 14:00; Stop 03/07/18 at 13:59; Status DC Ondansetron HCl (Zofran) 4 mg PRN Q8HRS PRN IV NAUSEA/VOMITING; Start 03/05/18 at 17:00; Stop 03/06/18 at 16:59; Status DC Fentanyl Citrate (Fentanyl 2ml Vial) 50 mcg PRN Q2HR PRN IV PAIN Last administered on 03/06/18at 06:28; Start 03/05/18 at 17:00; Stop 03/06/18 at 16:59 ; Status DC Sodium Chloride 1,000 ml @ 100 mls/hr Q10H IV Last administered on 03/06/18at 05:55; Start 03/05/18 at 17:00; Stop 03/06/18 at 16:59; Status DC Piperacillin Sod/ Tazobactam Sod 3.375 gm/Sodium Chloride 50 ml @ 100 mls/hr Q6HRS IV Last administered on 03/12/18at 06:07; Start 03/05/18 at 17:15 Ondansetron HCl (Zofran) 4 mg PRN Q6HRS PRN IV NAUSEA/VOMITING; Start 03/06/18 at 07:30; Stop 03/07/18 at 07:29; Status DC Fentanyl Citrate (Fentanyl 2ml Vial) 25 mcg PRN Q5MIN PRN IV MILD PAIN; Start 03/06/18 at 07:30; Stop 03/07/18 at 07:29; Status DC Fentanyl Citrate (Fentanyl 2ml Vial) 50 mcg PRN Q5MIN PRN IV MODERATE TO SEVERE PAIN Last administered on 03/06/18at 15:04; Start 03/06/18 at 07:30; Stop 03/07/18 at 07:29; Status DC Morphine Sulfate (Morphine Sulfate) 1 mg PRN Q10MIN PRN IV SEVERE PAIN; Start 03/06/18 at 07:30; Stop 03/07/18 at 07:29; Status DC Ringer's Solution 1,000 ml @ 30 mls/hr Q24H IV Last administered on 03/06/18at 10:44; Start 03/06/18 at 07:21; Stop 03/06/18 at 19:20; Status DC Lidocaine HCl (Xylocaine-Mpf 1% 2ml Vial) 2 ml PRN 1X PRN ID PRIOR TO IV START ; Start 03/06/18 at 07:30; Stop 03/07/18 at 07:29; Status DC Hydromorphone HCl (Dilaudid) 0.5 mg PRN Q10MIN PRN IV SEV PAIN, Second choice; Start 03/06/18 at 07:30; Stop 03/07/18 at 07:29; Status DC Prochlorperazine Edisylate (Compazine) 5 mg PACU PRN PRN IV NAUSEA, MRX1; Start 03/06/18 at 07:30; Stop 03/07/18 at 07:29; Status DC Rocuronium Alden (Zemuron) 50 mg STK-MED ONCE .ROUTE ; Start 03/06/18 at 11:58 ; Stop 03/06/18 at 11:59; Status DC Fentanyl Citrate (Fentanyl 2ml Vial) 100 mcg STK-MED ONCE .ROUTE ; Start at 11:58; Stop 03/06/18 at 11:59; Status DC Glycopyrrolate (Robinul) 1 mg STK-MED ONCE .ROUTE ; Start 03/06/18 at 11:59; Stop 03/06/18 at 12:00; Status DC Sevoflurane (Ultane) 60 ml STK-MED ONCE IH ; Start 03/06/18 at 12:20; Stop 03/06 at 12:21; Status DC Dexamethasone Sodium Phosphate (Decadron) 20 mg STK-MED ONCE .ROUTE ; Start at 12:22; Stop 03/06/18 at 12:23; Status DC Propofol 20 ml @ As Directed STK-MED ONCE IV ; Start 03/06/18 at 12:22; Stop at 12:23; Status DC Lidocaine HCl (Lidocaine Pf 2% Vial) 5 ml STK-MED ONCE .ROUTE ; Start 03/06/18 at 12:22; Stop 03/06/18 at 12:23; Status DC Ketorolac Tromethamine (Toradol For Or Only) 30 mg STK-MED ONCE INJ ; Start at 12:22; Stop 03/06/18 at 12:23; Status DC Ondansetron HCl (Zofran) 4 mg STK-MED ONCE .ROUTE ; Start 03/06/18 at 12:22; Stop 03/06/18 at 12:23; Status DC Bupivacaine HCl/ Epinephrine Bitart (Marcaine-Epi 0.5%-[id number]) 50 ml STK-MED ONCE .ROUTE ; Start 03/06/18 at 11:26; Stop 03/06/18 at 12:27; Status DC Iohexol (Omnipaque 300 Mg/ml) 100 ml STK-MED ONCE .ROUTE ; Start 03/06/18 at 11: 26; Stop 03/06/18 at 12:27; Status DC Cellulose (Surgicel Hemostat 4x8) 1 each STK-MED ONCE .ROUTE ; Start 03/06/18 at 11:27; Stop 03/06/18 at 12:27; Status DC Glucagon (Glucagen) 1 mg STK-MED ONCE .ROUTE Last administered on 03/06/18at 13: 27; Start 03/06/18 at 12:21; Stop 03/06/18 at 13:22; Status DC Phenylephrine HCl (PHENYLEPHRINE in 0.9% NACL PF) 1 mg STK-MED ONCE IV ; Start 03/06/18 at 13:35; Stop 03/06/18 at 13:36; Status DC Propofol 20 ml @ As Directed STK-MED ONCE IV ; Start 03/06/18 at 13:48; Stop at 13:49; Status DC Oxycodone/ Acetaminophen (Percocet 5/325) 1 tab PRN Q4HRS PRN PO PAIN MILD Last administered on 03/10/18at 13:13; Start 03/06/18 at 14:15; Stop 03/11/18 at 15 :12; Status DC Oxycodone/ Acetaminophen (Percocet 5/325) 2 tab PRN Q4HRS PRN PO PAIN MODERATE TO SEVERE Last administered on 03/11/18at 15:09; Start 03/06/18 at 14:15; Stop 03/11/18 at 15:12; Status DC Polyethylene Glycol (miraLAX PACKET) 17 gm PRN DAILY PRN PO CONSTIPATION 1ST CHOICE Last administered on 03/11/18at 09:51; Start 03/06/18 at 16:00 Pantoprazole Sodium (Protonix) 40 mg DAILYAC PO Last administered on 03/06/18at 17:31; Start 03/06/18 at 16:30; Stop 03/08/18 at 10:01; Status DC Ringer's Solution 1,000 ml @ 50 mls/hr Q20H IV Last administered on 03/07/18at 13:29; Start 03/07/18 at 07:00; Stop 03/07/18 at 18:59; Status DC Fentanyl Citrate (Fentanyl 2ml Vial) 50 mcg PRN Q2HR PRN IV SEVERE PAIN Last administered on 03/10/18at 15:37; Start 03/07/18 at 05:00; Stop 03/10/18 at 15:59; Status DC Iohexol (Omnipaque 300 Mg/ml) 100 ml STK-MED ONCE .ROUTE ; Start 03/07/18 at 12: 38; Stop 03/07/18 at 12:39; Status DC Ondansetron HCl (Zofran) 4 mg PRN Q6HRS PRN IV NAUSEA/VOMITING Last administered on 03/07/18at 17:10; Start 03/07/18 at 13:00; Stop 03/08/18 at 12:59 ; Status DC Fentanyl Citrate (Fentanyl 2ml Vial) 25 mcg PRN Q5MIN PRN IV MILD PAIN; Start 03/07/18 at 13:00; Stop 03/08/18 at 12:59; Status DC Fentanyl Citrate (Fentanyl 2ml Vial) 50 mcg PRN Q5MIN PRN IV MODERATE TO SEVERE PAIN; Start 03/07/18 at 13:00; Stop 03/08/18 at 12:59; Status DC Morphine Sulfate (Morphine Sulfate) 1 mg PRN Q10MIN PRN IV SEVERE PAIN; Start 03/07/18 at 13:00; Stop 03/08/18 at 12:59; Status DC Ringer's Solution 1,000 ml @ 100 mls/hr Q10H IV Last administered on at 13:40; Start 03/07/18 at 12:50; Stop 03/08/18 at 00:49; Status DC Lidocaine HCl (Xylocaine-Mpf 1% 2ml Vial) 2 ml 1X PRN PRN ID IV START; Start at 13:00; Stop 03/08/18 at 12:59; Status DC Hydromorphone HCl (Dilaudid) 0.5 mg PRN Q10MIN PRN IV SEV PAIN, Second choice; Start 03/07/18 at 13:00; Stop 03/08/18 at 12:59; Status DC Prochlorperazine Edisylate (Compazine) 5 mg PACU PRN PRN IV NAUSEA, MRX1; Start 03/07/18 at 13:00; Stop 03/08/18 at 12:59; Status DC Al Hydroxide/Mg Hydroxide (Mylanta Plus Xs) 30 ml PRN Q2HR PRN PO HEARTBURN / GAS; Start 03/07/18 at 20:30 Calcium Carbonate/ Glycine (Tums) 500 mg PRN AFTMEALHC PRN PO INDIGESTION; Start 03/07/18 at 20:30 Multi-Ingredient Mouthwash/Gargle (Gi Cocktail) 20 ml 1X ONCE SWSW ; Start at 21:00; Stop 03/07/18 at 21:01; Status DC Multi-Ingredient Mouthwash/Gargle (Gi Cocktail) 20 ml PRN Q15MIN PRN PO CHEST PAIN Last administered on 03/11/18at 15:09; Start 03/07/18 at 20:30 Diphenhydramine HCl (Benadryl) 25 mg PRN QHS PRN PO INSOMNIA; Start 03/07/18 at 20:30 Ondansetron HCl (Zofran) 4 mg PRN Q6HRS PRN IV NAUSEA/VOMITING 1ST CHOICE Last administered on 03/10/18at 22:04; Start 03/07/18 at 20:30 Prochlorperazine Edisylate (Compazine) 5 mg PRN Q6HRS PRN IV NAUSEA/VOMITING 2ND CHOICE Last administered on 03/11/18 02:22; Start 03/07/18 at 20:30 Sodium Chloride 1,000 ml @ 100 mls/hr Q10H IV Last administered on 03/11/18at 21 :17; Start 03/07/18 at 21:00 Pantoprazole Sodium (PROTONIX VIAL for IV PUSH) 40 mg DAILYAC IVP Last administered on 03/12/18 08:54; Start 03/09/18 at 10:30 Acetaminophen (Tylenol Supp) 650 mg PRN Q6HRS PRN AL MILD PAIN / TEMP Last administered on 03/08/18at 21:11; Start 03/08/18 at 16:45 Saliva Substitute (Biotene Moisturizing Mouth) 2 spray PRN Q15MIN PRN PO DRY MOUTH Last administered on 03/09/18at 05:15; Start 03/09/18 at 03:00 Iohexol (Omnipaque 300 Mg/ml) 75 ml 1X ONCE IV Last administered on 03/09/18at 10:47; Start 03/09/18 at 10:30; Stop 03/09/18 at 10:31; Status DC Potassium Chloride (Klor-Con) 40 meq 1X ONCE PO ; Start 03/09/18 at 12:30; Stop 03/09/18 at 14:22; Status DC Potassium Chloride/Water 100 ml @ 100 mls/hr Q1H IV Last administered on at 19:10; Start 03/09/18 at 15:00; Stop 03/09/18 at 18:59; Status DC Neomycin/ Polymyxin/ Bacitracin (Triple Antibiotic Ointment) 1 pkt PRN BID TP ; Start 03/09/18 at 16:00 Docusate Sodium (Colace) 100 mg DAILY PO Last administered on 03/11/18at 09:00; Start 03/11/18 at 09:00 Lactobacillus Rhamnosus (Culturelle) 1 cap BID PO Last administered on at 08:54; Start 03/11/18 at 21:00 Oxycodone/ Acetaminophen (Percocet 5/325) 2 tab PRN Q6HRS PRN PO PAIN MODERATE TO SEVERE Last administered on 03/12/18at 08:55; Start 03/11/18 at 15:15 Active Scripts Active Reported Tums (Calcium Carbonate) 200 Mg Tab.chew 200 Mg PO PRN PRN Milk Of Magnesia (Magnesium Hydroxide) 400 Mg/5 Ml Oral.susp 400 Mg PO PRN Dulcolax (Bisacodyl) 5 Mg Tablet.dr 5 Mg PO PRN DAILY PRN Allopurinol 100 Mg Tablet 1 Tab PO DAILY Claritin (Loratadine) 10 Mg Tablet 1 Tab PO DAILY Mobic (Meloxicam) 7.5 Mg Tablet 1 Tab PO BID Nortriptyline Hcl 75 Mg Capsule 75 Mg PO BID Vitals/I & O Vital Sign - Last 24 Hours 03/11/18 03/11/18 03/11/18 03/11/18 11:00 12:22 15:09 15:41 Temp 97.9 98.7 97.9 98.7 Pulse 72 72 Resp 16 18 B/P (MAP) 121/76 (91) 112/76 (88) Pulse Ox 95 95 95 95 O2 Delivery Room Air Room Air Room Air Room Air O2 Flow Rate 10.0 03/11/18 03/11/18 03/11/18 03/11/18 19:15 20:30 21:18 23:02 Temp 99.6 100.4 99.6 100.4 Pulse 76 87 Resp 18 20 18 B/P (MAP) 119/82 (94) 125/74 (91) Pulse Ox 96 95 O2 Delivery Room Air Room Air Room Air Room Air 03/12/18 03/12/18 03/12/18 03/12/18 02:59 03:02 04:02 07:00 Temp 98.6 97.7 98.6 97.7 Pulse 60 67 Resp 18 20 18 18 B/P (MAP) 130/60 (83) 123/79 (94) Pulse Ox 95 92 O2 Delivery Room Air Room Air Room Air Room Air 03/12/18 08:55 Resp 18 Pulse Ox 92 O2 Delivery Room Air Intake and Output 03/11/18 03/11/18 03/12/18 15:00 23:00 07:00 Intake Total 550 ml 240 ml 480 ml Output Total 50 ml 120 ml Balance 500 ml 120 ml 480 ml LISSETTE GRIFFIN MD Mar 12, 2018 10:43
[2018-03-12 11:00] VITALS: BP 107/59
[2018-03-12] MEDS: LIDO:MAALOX 1:1 20 ML SINGLE DOSE. PO PRN (11:06)
[2018-03-12] MEDS: IV NORMAL SALINE 1000ML BAG 1,000 ML IV SCH ×2 (11:07→21:33)
[2018-03-12] MEDS ORDERED: POTASSIUM CHLORIDE 20 MEQ TABLET.ER. PO ONE (12:00)
--- NOTE | 2018-03-12 13:49 | PDOC ---
SURGICAL PROGRESS NOTE Subjective Pt feels better, did get bloated with meatballs last night, pt requests to d/c with renal diet (suspect best tolerated) Vital Signs Vital Signs Date Time Temp Pulse Resp B/P (MAP) Pulse Ox O2 Delivery O2 Flow Rate FiO2 03/12/18 11:00 97.9 64 19 107/59 (75) 92 Room Air 97.9 03/11/18 12:22 10.0 I&O Intake and Output 03/12/18 07:00 Intake Total 1270 ml Output Total 170 ml Balance 1100 ml Intake Oral 1270 ml Drainage Total 170 ml # Voids 6 General: Alert, Oriented X3, Cooperative, No acute distress Abdomen: Soft, Other (incisional pain, DIRK serosang) Labs Laboratory Tests Test 03/11/18 03:45 03/12/18 04:10 03/12/18 04:15 White Blood Count 6.9 x10^3/uL (4.0-11.0) 6.4 x10^3/uL (4.0-11.0) Red Blood Count 4.34 x10^6/uL (4.30-5.70) 4.20 x10^6/uL (4.30-5.70) Hemoglobin 13.6 g/dL (13.0-17.5) 13.1 g/dL (13.0-17.5) Hematocrit 39.1 % (39.0-53.0) 37.9 % (39.0-53.0) Mean Corpuscular Volume 90 fL (79-100) 90 fL (79-100) Mean Corpuscular Hemoglobin 31 pg (25-35) 31 pg (25-35) Mean Corpuscular Hemoglobin Concent 35 g/dL (31-37) 35 g/dL (31-37) Red Cell Distribution Width 13.6 % (11.5-14.5) 13.9 % (11.5-14.5) Platelet Count 167 x10^3/uL (140-400) 198 x10^3/uL (140-400) Neutrophils (%) (Auto) 75 % (31-73) 67 % (31-73) Lymphocytes (%) (Auto) 14 % (24-48) 20 % (24-48) Monocytes (%) (Auto) 9 % (0-9) 10 % (0-9) Eosinophils (%) (Auto) 2 % (0-3) 2 % (0-3) Basophils (%) (Auto) 1 % (0-3) 1 % (0-3) Neutrophils # (Auto) 5.1 x10^3uL (1.8-7.7) 4.3 x10^3uL (1.8-7.7) Lymphocytes # (Auto) 0.9 x10^3/uL (1.0-4.8) 1.3 x10^3/uL (1.0-4.8) Monocytes # (Auto) 0.6 x10^3/uL (0.0-1.1) 0.7 x10^3/uL (0.0-1.1) Eosinophils # (Auto) 0.2 x10^3/uL (0.0-0.7) 0.1 x10^3/uL (0.0-0.7) Basophils # (Auto) 0.0 x10^3/uL (0.0-0.2) 0.0 x10^3/uL (0.0-0.2) Sodium Level 138 mmol/L (136-145) Potassium Level 3.2 mmol/L (3.5-5.1) Chloride Level 102 mmol/L (98-107) Carbon Dioxide Level 26 mmol/L (21-32) Anion Gap 10 (6-14) Blood Urea Nitrogen 5 mg/dL (8-26) Creatinine 0.9 mg/dL (0.7-1.3) Estimated GFR (Cockcroft-Gault) 89.7 BUN/Creatinine Ratio 6 (6-20) Glucose Level 123 mg/dL (70-99) Calcium Level 8.4 mg/dL (8.5-10.1) Total Bilirubin 0.8 mg/dL (0.2-1.0) Aspartate Amino Transf (AST/SGOT) 13 U/L (15-37) Alanine Aminotransferase (ALT/SGPT) 84 U/L (16-63) Alkaline Phosphatase 130 U/L (46-116) Total Protein 6.5 g/dL (6.4-8.2) Albumin 2.6 g/dL (3.4-5.0) Albumin/Globulin Ratio 0.7 (1.0-1.7) Amylase Level 27 U/L (25-115) Lipase 135 U/L (73-393) Laboratory Tests Test 03/12/18 04:10 03/12/18 04:15 White Blood Count 6.4 x10^3/uL (4.0-11.0) Red Blood Count 4.20 x10^6/uL (4.30-5.70) Hemoglobin 13.1 g/dL (13.0-17.5) Hematocrit 37.9 % (39.0-53.0) Mean Corpuscular Volume 90 fL (79-100) Mean Corpuscular Hemoglobin 31 pg (25-35) Mean Corpuscular Hemoglobin Concent 35 g/dL (31-37) Red Cell Distribution Width 13.9 % (11.5-14.5) Platelet Count 198 x10^3/uL (140-400) Neutrophils (%) (Auto) 67 % (31-73) Lymphocytes (%) (Auto) 20 % (24-48) Monocytes (%) (Auto) 10 % (0-9) Eosinophils (%) (Auto) 2 % (0-3) Basophils (%) (Auto) 1 % (0-3) Neutrophils # (Auto) 4.3 x10^3uL (1.8-7.7) Lymphocytes # (Auto) 1.3 x10^3/uL (1.0-4.8) Monocytes # (Auto) 0.7 x10^3/uL (0.0-1.1) Eosinophils # (Auto) 0.1 x10^3/uL (0.0-0.7) Basophils # (Auto) 0.0 x10^3/uL (0.0-0.2) Sodium Level 138 mmol/L (136-145) Potassium Level 3.2 mmol/L (3.5-5.1) Chloride Level 102 mmol/L (98-107) Carbon Dioxide Level 26 mmol/L (21-32) Anion Gap 10 (6-14) Blood Urea Nitrogen 5 mg/dL (8-26) Creatinine 0.9 mg/dL (0.7-1.3) Estimated GFR (Cockcroft-Gault) 89.7 BUN/Creatinine Ratio 6 (6-20) Glucose Level 123 mg/dL (70-99) Calcium Level 8.4 mg/dL (8.5-10.1) Total Bilirubin 0.8 mg/dL (0.2-1.0) Aspartate Amino Transf (AST/SGOT) 13 U/L (15-37) Alanine Aminotransferase (ALT/SGPT) 84 U/L (16-63) Alkaline Phosphatase 130 U/L (46-116) Total Protein 6.5 g/dL (6.4-8.2) Albumin 2.6 g/dL (3.4-5.0) Albumin/Globulin Ratio 0.7 (1.0-1.7) Amylase Level 27 U/L (25-115) Lipase 135 U/L (73-393) Problem List Problems Medical Problems: (1) Cholelithiasis Status: Acute Assessment/Plan s/p anabela CRAWFORD to d/c agree and recommend renal diet pending discharge remove drain MARCELINO CASTELLANO MD Mar 12, 2018 13:49
[2018-03-12 15:00] VITALS: BP 117/72
[2018-03-12 19:00] VITALS: BP 124/86
[2018-03-12 23:00] VITALS: BP 129/66
[2018-03-13 03:00] VITALS: BP 120/69
[2018-03-13] MEDS: oxyCODONE/APAP 5/325 1 TAB TABLET PO PRN ×2 (03:38→09:31)
[2018-03-13 04:42] LABS: BASO % 1 % (0-3); EOS # 0.2 x10^3/uL (0.0-0.7); EOS % 3 % (0-3); HEMATOCRIT 38.6 % (39.0-53.0); HEMOGLOBIN 13.3 g/dL (13.0-17.5); LYMPH # 1.6 x10^3/uL (1.0-4.8); LYMPH % 24 % (24-48); MEAN CORPUSCULAR HEMOGLOBIN 32 pg (25-35); MEAN CORPUSCULAR HGB CONC 35 g/dL (31-37); MEAN CORPUSCULAR VOLUME 91 fL (79-100); MONO # 0.7 x10^3/uL (0.0-1.1); MONO % 11 % (0-9); NEUT # 4.3 x10^3uL (1.8-7.7); NEUT % 62 % (31-73); PLATELET COUNT 187 x10^3/uL (140-400); RED BLOOD COUNT 4.23 x10^6/uL (4.30-5.70); RED CELL DISTRIBUTION WIDTH 13.8 % (11.5-14.5); WHITE BLOOD COUNT 6.9 x10^3/uL (4.0-11.0)
[2018-03-13 04:53] LABS: ALBUMIN 2.6 g/dL (3.4-5.0); ALBUMIN/GLOBULIN RATIO 0.7 (1.0-1.7); CALCIUM 8.4 mg/dL (8.5-10.1); GFR 79.4; POTASSIUM 3.6 mmol/L (3.5-5.1); TOTAL BILIRUBIN 0.6 mg/dL (0.2-1.0); TOTAL PROTEIN 6.6 g/dL (6.4-8.2)
[2018-03-13] MEDS: IV NORMAL SALINE 1000ML BAG 1,000 ML IV SCH (06:07)
[2018-03-13] MEDS: PANTOPRAZOLE IV PUSH 40 MG VIAL. IVP SCH (06:07)
[2018-03-13] MEDS: PIPERACILLIN/TAZOBACTAM 3.375 GM in IV NORMAL SALINE 50ML 50 ML IV SCH ×4 (06:07→12:22)
[2018-03-13 07:00] VITALS: BP 124/77
[2018-03-13] MEDS: LACTOBACILLUS RHAMNOSUS GG 1 CAPSULE. PO SCH (09:20)
[2018-03-13] MEDS: DOCUSATE SODIUM 100 MG CAPSULE. PO SCH (09:20)
--- NOTE | 2018-03-13 09:27 | PDOC ---
PROGRESS NOTES Subjective Subjective tolerating food currently Objective Objective Vital Signs Date Time Temp Pulse Resp B/P (MAP) Pulse Ox O2 Delivery O2 Flow Rate FiO2 03/13/18 07:00 98.2 75 18 124/77 (93) 94 Room Air 98.2 03/11/18 12:22 10.0 Intake and Output 03/13/18 07:00 Intake Total 4730 ml Output Total 320 ml Balance 4410 ml Intake Oral 1890 ml IV Total 1420 ml Other 1420 ml Output Urine Total 300 ml Drainage Total 20 ml # Voids 4 Physical Exam Abdomen: Soft, No tenderness General: Alert, Oriented X3 Assessment Assessment Problems Medical Problems: (1) Cholelithiasis Status: Acute Plan Plan of Care S/P lap danna, ERCP; improving; ok to discharge from my standpoint if tolerates po (either later today or in AM) Comment Review of Relevant I have reviewed the following items awilda (where applicable) has been applied. Labs Laboratory Tests Test 03/12/18 04:10 03/12/18 04:15 03/13/18 03:40 White Blood Count 6.4 x10^3/uL (4.0-11.0) 6.9 x10^3/uL (4.0-11.0) Red Blood Count 4.20 x10^6/uL (4.30-5.70) 4.23 x10^6/uL (4.30-5.70) Hemoglobin 13.1 g/dL (13.0-17.5) 13.3 g/dL (13.0-17.5) Hematocrit 37.9 % (39.0-53.0) 38.6 % (39.0-53.0) Mean Corpuscular Volume 90 fL (79-100) 91 fL (79-100) Mean Corpuscular Hemoglobin 31 pg (25-35) 32 pg (25-35) Mean Corpuscular Hemoglobin Concent 35 g/dL (31-37) 35 g/dL (31-37) Red Cell Distribution Width 13.9 % (11.5-14.5) 13.8 % (11.5-14.5) Platelet Count 198 x10^3/uL (140-400) 187 x10^3/uL (140-400) Neutrophils (%) (Auto) 67 % (31-73) 62 % (31-73) Lymphocytes (%) (Auto) 20 % (24-48) 24 % (24-48) Monocytes (%) (Auto) 10 % (0-9) 11 % (0-9) Eosinophils (%) (Auto) 2 % (0-3) 3 % (0-3) Basophils (%) (Auto) 1 % (0-3) 1 % (0-3) Neutrophils # (Auto) 4.3 x10^3uL (1.8-7.7) 4.3 x10^3uL (1.8-7.7) Lymphocytes # (Auto) 1.3 x10^3/uL (1.0-4.8) 1.6 x10^3/uL (1.0-4.8) Monocytes # (Auto) 0.7 x10^3/uL (0.0-1.1) 0.7 x10^3/uL (0.0-1.1) Eosinophils # (Auto) 0.1 x10^3/uL (0.0-0.7) 0.2 x10^3/uL (0.0-0.7) Basophils # (Auto) 0.0 x10^3/uL (0.0-0.2) 0.0 x10^3/uL (0.0-0.2) Sodium Level 138 mmol/L (136-145) 141 mmol/L (136-145) Potassium Level 3.2 mmol/L (3.5-5.1) 3.6 mmol/L (3.5-5.1) Chloride Level 102 mmol/L (98-107) 106 mmol/L (98-107) Carbon Dioxide Level 26 mmol/L (21-32) 30 mmol/L (21-32) Anion Gap 10 (6-14) 5 (6-14) Blood Urea Nitrogen 5 mg/dL (8-26) 6 mg/dL (8-26) Creatinine 0.9 mg/dL (0.7-1.3) 1.0 mg/dL (0.7-1.3) Estimated GFR (Cockcroft-Gault) 89.7 79.4 BUN/Creatinine Ratio 6 (6-20) 6 (6-20) Glucose Level 123 mg/dL (70-99) 122 mg/dL (70-99) Calcium Level 8.4 mg/dL (8.5-10.1) 8.4 mg/dL (8.5-10.1) Total Bilirubin 0.8 mg/dL (0.2-1.0) 0.6 mg/dL (0.2-1.0) Aspartate Amino Transf (AST/SGOT) 13 U/L (15-37) 18 U/L (15-37) Alanine Aminotransferase (ALT/SGPT) 84 U/L (16-63) 67 U/L (16-63) Alkaline Phosphatase 130 U/L (46-116) 124 U/L (46-116) Total Protein 6.5 g/dL (6.4-8.2) 6.6 g/dL (6.4-8.2) Albumin 2.6 g/dL (3.4-5.0) 2.6 g/dL (3.4-5.0) Albumin/Globulin Ratio 0.7 (1.0-1.7) 0.7 (1.0-1.7) Amylase Level 27 U/L (25-115) Lipase 135 U/L (73-393) Laboratory Tests Test 03/13/18 03:40 White Blood Count 6.9 x10^3/uL (4.0-11.0) Red Blood Count 4.23 x10^6/uL (4.30-5.70) Hemoglobin 13.3 g/dL (13.0-17.5) Hematocrit 38.6 % (39.0-53.0) Mean Corpuscular Volume 91 fL (79-100) Mean Corpuscular Hemoglobin 32 pg (25-35) Mean Corpuscular Hemoglobin Concent 35 g/dL (31-37) Red Cell Distribution Width 13.8 % (11.5-14.5) Platelet Count 187 x10^3/uL (140-400) Neutrophils (%) (Auto) 62 % (31-73) Lymphocytes (%) (Auto) 24 % (24-48) Monocytes (%) (Auto) 11 % (0-9) Eosinophils (%) (Auto) 3 % (0-3) Basophils (%) (Auto) 1 % (0-3) Neutrophils # (Auto) 4.3 x10^3uL (1.8-7.7) Lymphocytes # (Auto) 1.6 x10^3/uL (1.0-4.8) Monocytes # (Auto) 0.7 x10^3/uL (0.0-1.1) Eosinophils # (Auto) 0.2 x10^3/uL (0.0-0.7) Basophils # (Auto) 0.0 x10^3/uL (0.0-0.2) Sodium Level 141 mmol/L (136-145) Potassium Level 3.6 mmol/L (3.5-5.1) Chloride Level 106 mmol/L (98-107) Carbon Dioxide Level 30 mmol/L (21-32) Anion Gap 5 (6-14) Blood Urea Nitrogen 6 mg/dL (8-26) Creatinine 1.0 mg/dL (0.7-1.3) Estimated GFR (Cockcroft-Gault) 79.4 BUN/Creatinine Ratio 6 (6-20) Glucose Level 122 mg/dL (70-99) Calcium Level 8.4 mg/dL (8.5-10.1) Total Bilirubin 0.6 mg/dL (0.2-1.0) Aspartate Amino Transf (AST/SGOT) 18 U/L (15-37) Alanine Aminotransferase (ALT/SGPT) 67 U/L (16-63) Alkaline Phosphatase 124 U/L (46-116) Total Protein 6.6 g/dL (6.4-8.2) Albumin 2.6 g/dL (3.4-5.0) Albumin/Globulin Ratio 0.7 (1.0-1.7) Microbiology 03/08/18 Blood Culture - Preliminary, Resulted NO GROWTH AFTER 4 DAYS Medications Current Medications Sodium Chloride 1,000 ml @ 1,000 mls/hr Q1H IV Last administered on 03/05/18at 13:52; Start 03/05/18 at 13:37; Stop 03/05/18 at 14:36; Status DC Fentanyl Citrate (Fentanyl 2ml Vial) 50 mcg 1X ONCE IV Last administered on at 13:52; Start 03/05/18 at 13:45; Stop 03/05/18 at 13:46; Status DC Famotidine (Pepcid Vial) 20 mg 1X ONCE IVP Last administered on 03/05/18at 13: 51; Start 03/05/18 at 13:45; Stop 03/05/18 at 13:46; Status DC Iohexol (Omnipaque 300 Mg/ml) 75 ml 1X ONCE IV Last administered on 03/05/18at 13:45; Start 03/05/18 at 13:45; Stop 03/05/18 at 13:46; Status DC Ondansetron HCl (Zofran) 4 mg 1X ONCE IV Last administered on 03/05/18at 13:51 ; Start 03/05/18 at 13:45; Stop 03/05/18 at 13:47; Status DC Info (CONTRAST GIVEN -- Rx MONITORING) 1 each PRN DAILY PRN MC SEE COMMENTS Last administered on 03/06/18at 13:16; Start 03/05/18 at 14:00; Stop 03/07/18 at 13:59; Status DC Ondansetron HCl (Zofran) 4 mg PRN Q8HRS PRN IV NAUSEA/VOMITING; Start 03/05/18 at 17:00; Stop 03/06/18 at 16:59; Status DC Fentanyl Citrate (Fentanyl 2ml Vial) 50 mcg PRN Q2HR PRN IV PAIN Last administered on 03/06/18at 06:28; Start 03/05/18 at 17:00; Stop 03/06/18 at 16:59 ; Status DC Sodium Chloride 1,000 ml @ 100 mls/hr Q10H IV Last administered on 03/06/18at 05:55; Start 03/05/18 at 17:00; Stop 03/06/18 at 16:59; Status DC Piperacillin Sod/ Tazobactam Sod 3.375 gm/Sodium Chloride 50 ml @ 100 mls/hr Q6HRS IV Last administered on 03/13/18at 06:07; Start 03/05/18 at 17:15 Ondansetron HCl (Zofran) 4 mg PRN Q6HRS PRN IV NAUSEA/VOMITING; Start 03/06/18 at 07:30; Stop 03/07/18 at 07:29; Status DC Fentanyl Citrate (Fentanyl 2ml Vial) 25 mcg PRN Q5MIN PRN IV MILD PAIN; Start 03/06/18 at 07:30; Stop 03/07/18 at 07:29; Status DC Fentanyl Citrate (Fentanyl 2ml Vial) 50 mcg PRN Q5MIN PRN IV MODERATE TO SEVERE PAIN Last administered on 03/06/18at 15:04; Start 03/06/18 at 07:30; Stop 03/07/18 at 07:29; Status DC Morphine Sulfate (Morphine Sulfate) 1 mg PRN Q10MIN PRN IV SEVERE PAIN; Start 03/06/18 at 07:30; Stop 03/07/18 at 07:29; Status DC Ringer's Solution 1,000 ml @ 30 mls/hr Q24H IV Last administered on 03/06/18at 10:44; Start 03/06/18 at 07:21; Stop 03/06/18 at 19:20; Status DC Lidocaine HCl (Xylocaine-Mpf 1% 2ml Vial) 2 ml PRN 1X PRN ID PRIOR TO IV START ; Start 03/06/18 at 07:30; Stop 03/07/18 at 07:29; Status DC Hydromorphone HCl (Dilaudid) 0.5 mg PRN Q10MIN PRN IV SEV PAIN, Second choice; Start 03/06/18 at 07:30; Stop 03/07/18 at 07:29; Status DC Prochlorperazine Edisylate (Compazine) 5 mg PACU PRN PRN IV NAUSEA, MRX1; Start 03/06/18 at 07:30; Stop 03/07/18 at 07:29; Status DC Rocuronium [place] (Zemuron) 50 mg STK-MED ONCE .ROUTE ; Start 03/06/18 at 11:58 ; Stop 03/06/18 at 11:59; Status DC Fentanyl Citrate (Fentanyl 2ml Vial) 100 mcg STK-MED ONCE .ROUTE ; Start at 11:58; Stop 03/06/18 at 11:59; Status DC Glycopyrrolate (Robinul) 1 mg STK-MED ONCE .ROUTE ; Start 03/06/18 at 11:59; Stop 03/06/18 at 12:00; Status DC Sevoflurane (Ultane) 60 ml STK-MED ONCE IH ; Start 03/06/18 at 12:20; Stop 03/06 at 12:21; Status DC Dexamethasone Sodium Phosphate (Decadron) 20 mg STK-MED ONCE .ROUTE ; Start at 12:22; Stop 03/06/18 at 12:23; Status DC Propofol 20 ml @ As Directed STK-MED ONCE IV ; Start 03/06/18 at 12:22; Stop at 12:23; Status DC Lidocaine HCl (Lidocaine Pf 2% Vial) 5 ml STK-MED ONCE .ROUTE ; Start 03/06/18 at 12:22; Stop 03/06/18 at 12:23; Status DC Ketorolac Tromethamine (Toradol For Or Only) 30 mg STK-MED ONCE INJ ; Start at 12:22; Stop 03/06/18 at 12:23; Status DC Ondansetron HCl (Zofran) 4 mg STK-MED ONCE .ROUTE ; Start 03/06/18 at 12:22; Stop 03/06/18 at 12:23; Status DC Bupivacaine HCl/ Epinephrine Bitart (Marcaine-Epi 0.5%-[id number]) 50 ml STK-MED ONCE .ROUTE ; Start 03/06/18 at 11:26; Stop 03/06/18 at 12:27; Status DC Iohexol (Omnipaque 300 Mg/ml) 100 ml STK-MED ONCE .ROUTE ; Start 03/06/18 at 11: 26; Stop 03/06/18 at 12:27; Status DC Cellulose (Surgicel Hemostat 4x8) 1 each STK-MED ONCE .ROUTE ; Start 03/06/18 at 11:27; Stop 03/06/18 at 12:27; Status DC Glucagon (Glucagen) 1 mg STK-MED ONCE .ROUTE Last administered on 03/06/18at 13: 27; Start 03/06/18 at 12:21; Stop 03/06/18 at 13:22; Status DC Phenylephrine HCl (PHENYLEPHRINE in 0.9% NACL PF) 1 mg STK-MED ONCE IV ; Start 03/06/18 at 13:35; Stop 03/06/18 at 13:36; Status DC Propofol 20 ml @ As Directed STK-MED ONCE IV ; Start 03/06/18 at 13:48; Stop at 13:49; Status DC Oxycodone/ Acetaminophen (Percocet 5/325) 1 tab PRN Q4HRS PRN PO PAIN MILD Last administered on 03/10/18at 13:13; Start 03/06/18 at 14:15; Stop 03/11/18 at 15 :12; Status DC Oxycodone/ Acetaminophen (Percocet 5/325) 2 tab PRN Q4HRS PRN PO PAIN MODERATE TO SEVERE Last administered on 03/11/18at 15:09; Start 03/06/18 at 14:15; Stop 03/11/18 at 15:12; Status DC Polyethylene Glycol (miraLAX PACKET) 17 gm PRN DAILY PRN PO CONSTIPATION 1ST CHOICE Last administered on 03/11/18at 09:51; Start 03/06/18 at 16:00 Pantoprazole Sodium (Protonix) 40 mg DAILYAC PO Last administered on 03/06/18at 17:31; Start 03/06/18 at 16:30; Stop 03/08/18 at 10:01; Status DC Ringer's Solution 1,000 ml @ 50 mls/hr Q20H IV Last administered on 03/07/18at 13:29; Start 03/07/18 at 07:00; Stop 03/07/18 at 18:59; Status DC Fentanyl Citrate (Fentanyl 2ml Vial) 50 mcg PRN Q2HR PRN IV SEVERE PAIN Last administered on 03/10/18at 15:37; Start 03/07/18 at 05:00; Stop 03/10/18 at 15:59; Status DC Iohexol (Omnipaque 300 Mg/ml) 100 ml STK-MED ONCE .ROUTE ; Start 03/07/18 at 12: 38; Stop 03/07/18 at 12:39; Status DC Ondansetron HCl (Zofran) 4 mg PRN Q6HRS PRN IV NAUSEA/VOMITING Last administered on 03/07/18at 17:10; Start 03/07/18 at 13:00; Stop 03/08/18 at 12:59 ; Status DC Fentanyl Citrate (Fentanyl 2ml Vial) 25 mcg PRN Q5MIN PRN IV MILD PAIN; Start 03/07/18 at 13:00; Stop 03/08/18 at 12:59; Status DC Fentanyl Citrate (Fentanyl 2ml Vial) 50 mcg PRN Q5MIN PRN IV MODERATE TO SEVERE PAIN; Start 03/07/18 at 13:00; Stop 03/08/18 at 12:59; Status DC Morphine Sulfate (Morphine Sulfate) 1 mg PRN Q10MIN PRN IV SEVERE PAIN; Start 03/07/18 at 13:00; Stop 03/08/18 at 12:59; Status DC Ringer's Solution 1,000 ml @ 100 mls/hr Q10H IV Last administered on at 13:40; Start 03/07/18 at 12:50; Stop 03/08/18 at 00:49; Status DC Lidocaine HCl (Xylocaine-Mpf 1% 2ml Vial) 2 ml 1X PRN PRN ID IV START; Start at 13:00; Stop 03/08/18 at 12:59; Status DC Hydromorphone HCl (Dilaudid) 0.5 mg PRN Q10MIN PRN IV SEV PAIN, Second choice; Start 03/07/18 at 13:00; Stop 03/08/18 at 12:59; Status DC Prochlorperazine Edisylate (Compazine) 5 mg PACU PRN PRN IV NAUSEA, MRX1; Start 03/07/18 at 13:00; Stop 03/08/18 at 12:59; Status DC Al Hydroxide/Mg Hydroxide (Mylanta Plus Xs) 30 ml PRN Q2HR PRN PO HEARTBURN / GAS; Start 03/07/18 at 20:30 Calcium Carbonate/ Glycine (Tums) 500 mg PRN AFTMEALHC PRN PO INDIGESTION Last administered on 03/13/18at 01:36; Start 03/07/18 at 20:30 Multi-Ingredient Mouthwash/Gargle (Gi Cocktail) 20 ml 1X ONCE SWSW ; Start at 21:00; Stop 03/07/18 at 21:01; Status DC Multi-Ingredient Mouthwash/Gargle (Gi Cocktail) 20 ml PRN Q15MIN PRN PO CHEST PAIN Last administered on 03/12/18at 11:06; Start 03/07/18 at 20:30 Diphenhydramine HCl (Benadryl) 25 mg PRN QHS PRN PO INSOMNIA; Start 03/07/18 at 20:30 Ondansetron HCl (Zofran) 4 mg PRN Q6HRS PRN IV NAUSEA/VOMITING 1ST CHOICE Last administered on 03/10/18at 22:04; Start 03/07/18 at 20:30 Prochlorperazine Edisylate (Compazine) 5 mg PRN Q6HRS PRN IV NAUSEA/VOMITING 2ND CHOICE Last administered on 03/11/18 02:22; Start 03/07/18 at 20:30 Sodium Chloride 1,000 ml @ 100 mls/hr Q10H IV Last administered on 03/12/18at 21 :33; Start 03/07/18 at 21:00 Pantoprazole Sodium (PROTONIX VIAL for IV PUSH) 40 mg DAILYAC IVP Last administered on 03/13/18at 06:07; Start 03/09/18 at 10:30 Acetaminophen (Tylenol Supp) 650 mg PRN Q6HRS PRN FL MILD PAIN / TEMP Last administered on 03/08/18at 21:11; Start 03/08/18 at 16:45 Saliva Substitute (Biotene Moisturizing Mouth) 2 spray PRN Q15MIN PRN PO DRY MOUTH Last administered on 03/09/18at 05:15; Start 03/09/18 at 03:00 Iohexol (Omnipaque 300 Mg/ml) 75 ml 1X ONCE IV Last administered on 03/09/18at 10:47; Start 03/09/18 at 10:30; Stop 03/09/18 at 10:31; Status DC Potassium Chloride (Klor-Con) 40 meq 1X ONCE PO ; Start 03/09/18 at 12:30; Stop 03/09/18 at 14:22; Status DC Potassium Chloride/Water 100 ml @ 100 mls/hr Q1H IV Last administered on at 19:10; Start 03/09/18 at 15:00; Stop 03/09/18 at 18:59; Status DC Neomycin/ Polymyxin/ Bacitracin (Triple Antibiotic Ointment) 1 pkt PRN BID TP ; Start 03/09/18 at 16:00 Docusate Sodium (Colace) 100 mg DAILY PO Last administered on 03/13/18at 09:20; Start 03/11/18 at 09:00 Lactobacillus Rhamnosus (Culturelle) 1 cap BID PO Last administered on at 09:20; Start 03/11/18 at 21:00 Oxycodone/ Acetaminophen (Percocet 5/325) 2 tab PRN Q6HRS PRN PO PAIN MODERATE TO SEVERE Last administered on 03/13/18at 03:38; Start 03/11/18 at 15:15 Potassium Chloride (Klor-Con) 40 meq 1X ONCE PO Last administered on 03/12/18at 13:35; Start 03/12/18 at 12:00; Stop 03/12/18 at 12:01; Status DC Potassium Chloride (Klor-Con) 20 meq 1X ONCE PO ; Start 03/13/18 at 12:00; Stop 03/13/18 at 12:01 Lidocaine HCl (Lidocaine HCl 2% Abboject) 100 mg STK-MED ONCE .ROUTE ; Start at 07:00; Stop 03/13/18 at 08:34; Status DC Succinylcholine Chloride (Anectine) 200 mg STK-MED ONCE .ROUTE ; Start 03/05/18 at 07:00; Stop 03/13/18 at 08:34; Status DC Active Scripts Active Reported Tums (Calcium Carbonate) 200 Mg Tab.chew 200 Mg PO PRN PRN Milk Of Magnesia (Magnesium Hydroxide) 400 Mg/5 Ml Oral.susp 400 Mg PO PRN Dulcolax (Bisacodyl) 5 Mg Tablet.dr 5 Mg PO PRN DAILY PRN Allopurinol 100 Mg Tablet 1 Tab PO DAILY Claritin (Loratadine) 10 Mg Tablet 1 Tab PO DAILY Mobic (Meloxicam) 7.5 Mg Tablet 1 Tab PO BID Nortriptyline Hcl 75 Mg Capsule 75 Mg PO BID Vitals/I & O Vital Sign - Last 24 Hours 03/12/18 03/12/18 03/12/18 03/12/18 11:00 15:00 15:25 16:30 Temp 97.9 99.0 97.9 99.0 Pulse 64 63 Resp 19 19 17 B/P (MAP) 107/59 (75) 117/72 (87) Pulse Ox 92 95 92 92 O2 Delivery Room Air Room Air Room Air 03/12/18 03/12/18 03/12/18 03/12/18 19:00 19:30 21:35 23:00 Temp 98.7 98.7 98.7 98.7 Pulse 75 76 Resp 18 16 18 B/P (MAP) 124/86 (99) 129/66 (87) Pulse Ox 95 95 O2 Delivery Room Air Room Air Room Air Room Air 9/10/2503/13/18 03/13/18 03/13/18 03:00 03:38 04:44 07:00 Temp 98.4 98.2 98.4 98.2 Pulse 58 75 Resp 18 18 14 18 B/P (MAP) 120/69 (86) 124/77 (93) Pulse Ox 94 94 O2 Delivery Room Air Room Air Room Air Room Air Intake and Output 03/12/18 03/12/18 03/13/18 15:00 23:00 07:00 Intake Total 2390 ml 2340 ml Output Total 300 ml 20 ml Balance 2090 ml 2320 ml ROBIN WHITLEY MD Mar 13, 2018 09:27
[2018-03-13 10:41] VITALS: BP 123/88
--- NOTE | 2018-03-13 11:06 | PDOC ---
PROGRESS NOTES Chief Complaint Chief Complaint CC: S/P day# 6 ERCP (indicated a filling defect in the distal duct from a common duct calculus) POD #5 Cholecystectomy Biliary Cholic Cholelithiasis History of Present Illness History of Present Illness Pt. seen and examined Pt. 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 Vitals Vitals Vital Signs Date Time Temp Pulse Resp B/P (MAP) Pulse Ox O2 Delivery O2 Flow Rate FiO2 03/13/18 10:41 97.5 89 18 123/88 (100) 94 Room Air 97.5 Physical Exam General: Alert, Oriented X3, Cooperative, No acute distress Heart: Regular rate, Normal S1, Normal S2, No murmurs Lungs: Clear Abdomen: Normal bowel sounds, Soft, No tenderness, Other (mild tenderness) Extremities: No clubbing, No cyanosis, No edema Skin: No rashes, No breakdown, No significant lesion Labs LABS Laboratory Tests Test 03/13/18 03:40 White Blood Count 6.9 x10^3/uL (4.0-11.0) Red Blood Count 4.23 x10^6/uL (4.30-5.70) Hemoglobin 13.3 g/dL (13.0-17.5) Hematocrit 38.6 % (39.0-53.0) Mean Corpuscular Volume 91 fL (79-100) Mean Corpuscular Hemoglobin 32 pg (25-35) Mean Corpuscular Hemoglobin Concent 35 g/dL (31-37) Red Cell Distribution Width 13.8 % (11.5-14.5) Platelet Count 187 x10^3/uL (140-400) Neutrophils (%) (Auto) 62 % (31-73) Lymphocytes (%) (Auto) 24 % (24-48) Monocytes (%) (Auto) 11 % (0-9) Eosinophils (%) (Auto) 3 % (0-3) Basophils (%) (Auto) 1 % (0-3) Neutrophils # (Auto) 4.3 x10^3uL (1.8-7.7) Lymphocytes # (Auto) 1.6 x10^3/uL (1.0-4.8) Monocytes # (Auto) 0.7 x10^3/uL (0.0-1.1) Eosinophils # (Auto) 0.2 x10^3/uL (0.0-0.7) Basophils # (Auto) 0.0 x10^3/uL (0.0-0.2) Sodium Level 141 mmol/L (136-145) Potassium Level 3.6 mmol/L (3.5-5.1) Chloride Level 106 mmol/L (98-107) Carbon Dioxide Level 30 mmol/L (21-32) Anion Gap 5 (6-14) Blood Urea Nitrogen 6 mg/dL (8-26) Creatinine 1.0 mg/dL (0.7-1.3) Estimated GFR (Cockcroft-Gault) 79.4 BUN/Creatinine Ratio 6 (6-20) Glucose Level 122 mg/dL (70-99) Calcium Level 8.4 mg/dL (8.5-10.1) Total Bilirubin 0.6 mg/dL (0.2-1.0) Aspartate Amino Transf (AST/SGOT) 18 U/L (15-37) Alanine Aminotransferase (ALT/SGPT) 67 U/L (16-63) Alkaline Phosphatase 124 U/L (46-116) Total Protein 6.6 g/dL (6.4-8.2) Albumin 2.6 g/dL (3.4-5.0) Albumin/Globulin Ratio 0.7 (1.0-1.7) Assessment and Plan Assessmemt and Plan Problems Medical Problems: (1) Cholelithiasis Status: Acute Comment Review of Relevant I have reviewed the following items awilda (where applicable) has been applied. Labs Laboratory Tests Test 03/12/18 04:10 03/12/18 04:15 03/13/18 03:40 White Blood Count 6.4 x10^3/uL (4.0-11.0) 6.9 x10^3/uL (4.0-11.0) Red Blood Count 4.20 x10^6/uL (4.30-5.70) 4.23 x10^6/uL (4.30-5.70) Hemoglobin 13.1 g/dL (13.0-17.5) 13.3 g/dL (13.0-17.5) Hematocrit 37.9 % (39.0-53.0) 38.6 % (39.0-53.0) Mean Corpuscular Volume 90 fL (79-100) 91 fL (79-100) Mean Corpuscular Hemoglobin 31 pg (25-35) 32 pg (25-35) Mean Corpuscular Hemoglobin Concent 35 g/dL (31-37) 35 g/dL (31-37) Red Cell Distribution Width 13.9 % (11.5-14.5) 13.8 % (11.5-14.5) Platelet Count 198 x10^3/uL (140-400) 187 x10^3/uL (140-400) Neutrophils (%) (Auto) 67 % (31-73) 62 % (31-73) Lymphocytes (%) (Auto) 20 % (24-48) 24 % (24-48) Monocytes (%) (Auto) 10 % (0-9) 11 % (0-9) Eosinophils (%) (Auto) 2 % (0-3) 3 % (0-3) Basophils (%) (Auto) 1 % (0-3) 1 % (0-3) Neutrophils # (Auto) 4.3 x10^3uL (1.8-7.7) 4.3 x10^3uL (1.8-7.7) Lymphocytes # (Auto) 1.3 x10^3/uL (1.0-4.8) 1.6 x10^3/uL (1.0-4.8) Monocytes # (Auto) 0.7 x10^3/uL (0.0-1.1) 0.7 x10^3/uL (0.0-1.1) Eosinophils # (Auto) 0.1 x10^3/uL (0.0-0.7) 0.2 x10^3/uL (0.0-0.7) Basophils # (Auto) 0.0 x10^3/uL (0.0-0.2) 0.0 x10^3/uL (0.0-0.2) Sodium Level 138 mmol/L (136-145) 141 mmol/L (136-145) Potassium Level 3.2 mmol/L (3.5-5.1) 3.6 mmol/L (3.5-5.1) Chloride Level 102 mmol/L (98-107) 106 mmol/L (98-107) Carbon Dioxide Level 26 mmol/L (21-32) 30 mmol/L (21-32) Anion Gap 10 (6-14) 5 (6-14) Blood Urea Nitrogen 5 mg/dL (8-26) 6 mg/dL (8-26) Creatinine 0.9 mg/dL (0.7-1.3) 1.0 mg/dL (0.7-1.3) Estimated GFR (Cockcroft-Gault) 89.7 79.4 BUN/Creatinine Ratio 6 (6-20) 6 (6-20) Glucose Level 123 mg/dL (70-99) 122 mg/dL (70-99) Calcium Level 8.4 mg/dL (8.5-10.1) 8.4 mg/dL (8.5-10.1) Total Bilirubin 0.8 mg/dL (0.2-1.0) 0.6 mg/dL (0.2-1.0) Aspartate Amino Transf (AST/SGOT) 13 U/L (15-37) 18 U/L (15-37) Alanine Aminotransferase (ALT/SGPT) 84 U/L (16-63) 67 U/L (16-63) Alkaline Phosphatase 130 U/L (46-116) 124 U/L (46-116) Total Protein 6.5 g/dL (6.4-8.2) 6.6 g/dL (6.4-8.2) Albumin 2.6 g/dL (3.4-5.0) 2.6 g/dL (3.4-5.0) Albumin/Globulin Ratio 0.7 (1.0-1.7) 0.7 (1.0-1.7) Amylase Level 27 U/L (25-115) Lipase 135 U/L (73-393) Laboratory Tests Test 03/13/18 03:40 White Blood Count 6.9 x10^3/uL (4.0-11.0) Red Blood Count 4.23 x10^6/uL (4.30-5.70) Hemoglobin 13.3 g/dL (13.0-17.5) Hematocrit 38.6 % (39.0-53.0) Mean Corpuscular Volume 91 fL (79-100) Mean Corpuscular Hemoglobin 32 pg (25-35) Mean Corpuscular Hemoglobin Concent 35 g/dL (31-37) Red Cell Distribution Width 13.8 % (11.5-14.5) Platelet Count 187 x10^3/uL (140-400) Neutrophils (%) (Auto) 62 % (31-73) Lymphocytes (%) (Auto) 24 % (24-48) Monocytes (%) (Auto) 11 % (0-9) Eosinophils (%) (Auto) 3 % (0-3) Basophils (%) (Auto) 1 % (0-3) Neutrophils # (Auto) 4.3 x10^3uL (1.8-7.7) Lymphocytes # (Auto) 1.6 x10^3/uL (1.0-4.8) Monocytes # (Auto) 0.7 x10^3/uL (0.0-1.1) Eosinophils # (Auto) 0.2 x10^3/uL (0.0-0.7) Basophils # (Auto) 0.0 x10^3/uL (0.0-0.2) Sodium Level 141 mmol/L (136-145) Potassium Level 3.6 mmol/L (3.5-5.1) Chloride Level 106 mmol/L (98-107) Carbon Dioxide Level 30 mmol/L (21-32) Anion Gap 5 (6-14) Blood Urea Nitrogen 6 mg/dL (8-26) Creatinine 1.0 mg/dL (0.7-1.3) Estimated GFR (Cockcroft-Gault) 79.4 BUN/Creatinine Ratio 6 (6-20) Glucose Level 122 mg/dL (70-99) Calcium Level 8.4 mg/dL (8.5-10.1) Total Bilirubin 0.6 mg/dL (0.2-1.0) Aspartate Amino Transf (AST/SGOT) 18 U/L (15-37) Alanine Aminotransferase (ALT/SGPT) 67 U/L (16-63) Alkaline Phosphatase 124 U/L (46-116) Total Protein 6.6 g/dL (6.4-8.2) Albumin 2.6 g/dL (3.4-5.0) Albumin/Globulin Ratio 0.7 (1.0-1.7) Microbiology 03/08/18 Blood Culture - Preliminary, Resulted NO GROWTH AFTER 4 DAYS Medications Current Medications Sodium Chloride 1,000 ml @ 1,000 mls/hr Q1H IV Last administered on 03/05/18 13:52; Start 03/05/18 at 13:37; Stop 03/05/18 at 14:36; Status DC Fentanyl Citrate (Fentanyl 2ml Vial) 50 mcg 1X ONCE IV Last administered on at 13:52; Start 03/05/18 at 13:45; Stop 03/05/18 at 13:46; Status DC Famotidine (Pepcid Vial) 20 mg 1X ONCE IVP Last administered on 03/05/18at 13: 51; Start 03/05/18 at 13:45; Stop 03/05/18 at 13:46; Status DC Iohexol (Omnipaque 300 Mg/ml) 75 ml 1X ONCE IV Last administered on 03/05/18at 13:45; Start 03/05/18 at 13:45; Stop 03/05/18 at 13:46; Status DC Ondansetron HCl (Zofran) 4 mg 1X ONCE IV Last administered on 03/05/18 13:51 ; Start 03/05/18 at 13:45; Stop 03/05/18 at 13:47; Status DC Info (CONTRAST GIVEN -- Rx MONITORING) 1 each PRN DAILY PRN MC SEE COMMENTS Last administered on 03/06/18at 13:16; Start 03/05/18 at 14:00; Stop 03/07/18 at 13:59; Status DC Ondansetron HCl (Zofran) 4 mg PRN Q8HRS PRN IV NAUSEA/VOMITING; Start 03/05/18 at 17:00; Stop 03/06/18 at 16:59; Status DC Fentanyl Citrate (Fentanyl 2ml Vial) 50 mcg PRN Q2HR PRN IV PAIN Last administered on 03/06/18at 06:28; Start 03/05/18 at 17:00; Stop 03/06/18 at 16:59 ; Status DC Sodium Chloride 1,000 ml @ 100 mls/hr Q10H IV Last administered on 03/06/18at 05:55; Start 03/05/18 at 17:00; Stop 03/06/18 at 16:59; Status DC Piperacillin Sod/ Tazobactam Sod 3.375 gm/Sodium Chloride 50 ml @ 100 mls/hr Q6HRS IV Last administered on 03/13/18at 06:07; Start 03/05/18 at 17:15 Ondansetron HCl (Zofran) 4 mg PRN Q6HRS PRN IV NAUSEA/VOMITING; Start 03/06/18 at 07:30; Stop 03/07/18 at 07:29; Status DC Fentanyl Citrate (Fentanyl 2ml Vial) 25 mcg PRN Q5MIN PRN IV MILD PAIN; Start 03/06/18 at 07:30; Stop 03/07/18 at 07:29; Status DC Fentanyl Citrate (Fentanyl 2ml Vial) 50 mcg PRN Q5MIN PRN IV MODERATE TO SEVERE PAIN Last administered on 03/06/18at 15:04; Start 03/06/18 at 07:30; Stop 03/07/18 at 07:29; Status DC Morphine Sulfate (Morphine Sulfate) 1 mg PRN Q10MIN PRN IV SEVERE PAIN; Start 03/06/18 at 07:30; Stop 03/07/18 at 07:29; Status DC Ringer's Solution 1,000 ml @ 30 mls/hr Q24H IV Last administered on 03/06/18at 10:44; Start 03/06/18 at 07:21; Stop 03/06/18 at 19:20; Status DC Lidocaine HCl (Xylocaine-Mpf 1% 2ml Vial) 2 ml PRN 1X PRN ID PRIOR TO IV START ; Start 03/06/18 at 07:30; Stop 03/07/18 at 07:29; Status DC Hydromorphone HCl (Dilaudid) 0.5 mg PRN Q10MIN PRN IV SEV PAIN, Second choice; Start 03/06/18 at 07:30; Stop 03/07/18 at 07:29; Status DC Prochlorperazine Edisylate (Compazine) 5 mg PACU PRN PRN IV NAUSEA, MRX1; Start 03/06/18 at 07:30; Stop 03/07/18 at 07:29; Status DC Rocuronium [place] (Zemuron) 50 mg STK-MED ONCE .ROUTE ; Start 03/06/18 at 11:58 ; Stop 03/06/18 at 11:59; Status DC Fentanyl Citrate (Fentanyl 2ml Vial) 100 mcg STK-MED ONCE .ROUTE ; Start at 11:58; Stop 03/06/18 at 11:59; Status DC Glycopyrrolate (Robinul) 1 mg STK-MED ONCE .ROUTE ; Start 03/06/18 at 11:59; Stop 03/06/18 at 12:00; Status DC Sevoflurane (Ultane) 60 ml STK-MED ONCE IH ; Start 03/06/18 at 12:20; Stop 03/06 at 12:21; Status DC Dexamethasone Sodium Phosphate (Decadron) 20 mg STK-MED ONCE .ROUTE ; Start at 12:22; Stop 03/06/18 at 12:23; Status DC Propofol 20 ml @ As Directed STK-MED ONCE IV ; Start 03/06/18 at 12:22; Stop at 12:23; Status DC Lidocaine HCl (Lidocaine Pf 2% Vial) 5 ml STK-MED ONCE .ROUTE ; Start 03/06/18 at 12:22; Stop 03/06/18 at 12:23; Status DC Ketorolac Tromethamine (Toradol For Or Only) 30 mg STK-MED ONCE INJ ; Start at 12:22; Stop 03/06/18 at 12:23; Status DC Ondansetron HCl (Zofran) 4 mg STK-MED ONCE .ROUTE ; Start 03/06/18 at 12:22; Stop 03/06/18 at 12:23; Status DC Bupivacaine HCl/ Epinephrine Bitart (Marcaine-Epi 0.5%-[id number]) 50 ml STK-MED ONCE .ROUTE ; Start 03/06/18 at 11:26; Stop 03/06/18 at 12:27; Status DC Iohexol (Omnipaque 300 Mg/ml) 100 ml STK-MED ONCE .ROUTE ; Start 03/06/18 at 11: 26; Stop 03/06/18 at 12:27; Status DC Cellulose (Surgicel Hemostat 4x8) 1 each STK-MED ONCE .ROUTE ; Start 03/06/18 at 11:27; Stop 03/06/18 at 12:27; Status DC Glucagon (Glucagen) 1 mg STK-MED ONCE .ROUTE Last administered on 03/06/18at 13: 27; Start 03/06/18 at 12:21; Stop 03/06/18 at 13:22; Status DC Phenylephrine HCl (PHENYLEPHRINE in 0.9% NACL PF) 1 mg STK-MED ONCE IV ; Start 03/06/18 at 13:35; Stop 03/06/18 at 13:36; Status DC Propofol 20 ml @ As Directed STK-MED ONCE IV ; Start 03/06/18 at 13:48; Stop at 13:49; Status DC Oxycodone/ Acetaminophen (Percocet 5/325) 1 tab PRN Q4HRS PRN PO PAIN MILD Last administered on 03/10/18at 13:13; Start 03/06/18 at 14:15; Stop 03/11/18 at 15 :12; Status DC Oxycodone/ Acetaminophen (Percocet 5/325) 2 tab PRN Q4HRS PRN PO PAIN MODERATE TO SEVERE Last administered on 03/11/18at 15:09; Start 03/06/18 at 14:15; Stop 03/11/18 at 15:12; Status DC Polyethylene Glycol (miraLAX PACKET) 17 gm PRN DAILY PRN PO CONSTIPATION 1ST CHOICE Last administered on 03/11/18at 09:51; Start 03/06/18 at 16:00 Pantoprazole Sodium (Protonix) 40 mg DAILYAC PO Last administered on 03/06/18at 17:31; Start 03/06/18 at 16:30; Stop 03/08/18 at 10:01; Status DC Ringer's Solution 1,000 ml @ 50 mls/hr Q20H IV Last administered on 03/07/18at 13:29; Start 03/07/18 at 07:00; Stop 03/07/18 at 18:59; Status DC Fentanyl Citrate (Fentanyl 2ml Vial) 50 mcg PRN Q2HR PRN IV SEVERE PAIN Last administered on 03/10/18at 15:37; Start 03/07/18 at 05:00; Stop 03/10/18 at 15:59; Status DC Iohexol (Omnipaque 300 Mg/ml) 100 ml STK-MED ONCE .ROUTE ; Start 03/07/18 at 12: 38; Stop 03/07/18 at 12:39; Status DC Ondansetron HCl (Zofran) 4 mg PRN Q6HRS PRN IV NAUSEA/VOMITING Last administered on 03/07/18at 17:10; Start 03/07/18 at 13:00; Stop 03/08/18 at 12:59 ; Status DC Fentanyl Citrate (Fentanyl 2ml Vial) 25 mcg PRN Q5MIN PRN IV MILD PAIN; Start 03/07/18 at 13:00; Stop 03/08/18 at 12:59; Status DC Fentanyl Citrate (Fentanyl 2ml Vial) 50 mcg PRN Q5MIN PRN IV MODERATE TO SEVERE PAIN; Start 03/07/18 at 13:00; Stop 03/08/18 at 12:59; Status DC Morphine Sulfate (Morphine Sulfate) 1 mg PRN Q10MIN PRN IV SEVERE PAIN; Start 03/07/18 at 13:00; Stop 03/08/18 at 12:59; Status DC Ringer's Solution 1,000 ml @ 100 mls/hr Q10H IV Last administered on at 13:40; Start 03/07/18 at 12:50; Stop 03/08/18 at 00:49; Status DC Lidocaine HCl (Xylocaine-Mpf 1% 2ml Vial) 2 ml 1X PRN PRN ID IV START; Start at 13:00; Stop 03/08/18 at 12:59; Status DC Hydromorphone HCl (Dilaudid) 0.5 mg PRN Q10MIN PRN IV SEV PAIN, Second choice; Start 03/07/18 at 13:00; Stop 03/08/18 at 12:59; Status DC Prochlorperazine Edisylate (Compazine) 5 mg PACU PRN PRN IV NAUSEA, MRX1; Start 03/07/18 at 13:00; Stop 03/08/18 at 12:59; Status DC Al Hydroxide/Mg Hydroxide (Mylanta Plus Xs) 30 ml PRN Q2HR PRN PO HEARTBURN / GAS; Start 03/07/18 at 20:30 Calcium Carbonate/ Glycine (Tums) 500 mg PRN AFTMEALHC PRN PO INDIGESTION Last administered on 03/13/18at 01:36; Start 03/07/18 at 20:30 Multi-Ingredient Mouthwash/Gargle (Gi Cocktail) 20 ml 1X ONCE SWSW ; Start at 21:00; Stop 03/07/18 at 21:01; Status DC Multi-Ingredient Mouthwash/Gargle (Gi Cocktail) 20 ml PRN Q15MIN PRN PO CHEST PAIN Last administered on 03/12/18 11:06; Start 03/07/18 at 20:30 Diphenhydramine HCl (Benadryl) 25 mg PRN QHS PRN PO INSOMNIA; Start 03/07/18 at 20:30 Ondansetron HCl (Zofran) 4 mg PRN Q6HRS PRN IV NAUSEA/VOMITING 1ST CHOICE Last administered on 03/10/18 22:04; Start 03/07/18 at 20:30 Prochlorperazine Edisylate (Compazine) 5 mg PRN Q6HRS PRN IV NAUSEA/VOMITING 2ND CHOICE Last administered on 03/11/18 02:22; Start 03/07/18 at 20:30 Sodium Chloride 1,000 ml @ 100 mls/hr Q10H IV Last administered on 03/12/18 21 :33; Start 03/07/18 at 21:00 Pantoprazole Sodium (PROTONIX VIAL for IV PUSH) 40 mg DAILYAC IVP Last administered on 03/13/18 06:07; Start 03/09/18 at 10:30 Acetaminophen (Tylenol Supp) 650 mg PRN Q6HRS PRN IA MILD PAIN / TEMP Last administered on 03/08/18 21:11; Start 03/08/18 at 16:45 Saliva Substitute (Biotene Moisturizing Mouth) 2 spray PRN Q15MIN PRN PO DRY MOUTH Last administered on 03/09/18at 05:15; Start 03/09/18 at 03:00 Iohexol (Omnipaque 300 Mg/ml) 75 ml 1X ONCE IV Last administered on 03/09/18at 10:47; Start 03/09/18 at 10:30; Stop 03/09/18 at 10:31; Status DC Potassium Chloride (Klor-Con) 40 meq 1X ONCE PO ; Start 03/09/18 at 12:30; Stop 03/09/18 at 14:22; Status DC Potassium Chloride/Water 100 ml @ 100 mls/hr Q1H IV Last administered on at 19:10; Start 03/09/18 at 15:00; Stop 03/09/18 at 18:59; Status DC Neomycin/ Polymyxin/ Bacitracin (Triple Antibiotic Ointment) 1 pkt PRN BID TP ; Start 03/09/18 at 16:00 Docusate Sodium (Colace) 100 mg DAILY PO Last administered on 03/13/18at 09:20; Start 03/11/18 at 09:00 Lactobacillus Rhamnosus (Culturelle) 1 cap BID PO Last administered on at 09:20; Start 03/11/18 at 21:00 Oxycodone/ Acetaminophen (Percocet 5/325) 2 tab PRN Q6HRS PRN PO PAIN MODERATE TO SEVERE Last administered on 03/13/18at 09:31; Start 03/11/18 at 15:15 Potassium Chloride (Klor-Con) 40 meq 1X ONCE PO Last administered on 03/12/18at 13:35; Start 03/12/18 at 12:00; Stop 03/12/18 at 12:01; Status DC Potassium Chloride (Klor-Con) 20 meq 1X ONCE PO ; Start 03/13/18 at 12:00; Stop 03/13/18 at 12:01 Lidocaine HCl (Lidocaine HCl 2% Abboject) 100 mg STK-MED ONCE .ROUTE ; Start at 07:00; Stop 03/13/18 at 08:34; Status DC Succinylcholine Chloride (Anectine) 200 mg STK-MED ONCE .ROUTE ; Start 03/05/18 at 07:00; Stop 03/13/18 at 08:34; Status DC Active Scripts Active Reported Tums (Calcium Carbonate) 200 Mg Tab.chew 200 Mg PO PRN PRN Milk Of Magnesia (Magnesium Hydroxide) 400 Mg/5 Ml Oral.susp 400 Mg PO PRN Dulcolax (Bisacodyl) 5 Mg Tablet.dr 5 Mg PO PRN DAILY PRN Allopurinol 100 Mg Tablet 1 Tab PO DAILY Claritin (Loratadine) 10 Mg Tablet 1 Tab PO DAILY Mobic (Meloxicam) 7.5 Mg Tablet 1 Tab PO BID Nortriptyline Hcl 75 Mg Capsule 75 Mg PO BID Vitals/I & O Vital Sign - Last 24 Hours 03/12/18 03/12/18 03/12/18 03/12/18 15:00 15:25 16:30 19:00 Temp 99.0 98.7 99.0 98.7 Pulse 63 75 Resp 19 17 18 B/P (MAP) 117/72 (87) 124/86 (99) Pulse Ox 95 92 92 95 O2 Delivery Room Air Room Air Room Air 03/12/18 03/12/18 03/12/18 03/13/18 19:30 21:35 23:00 03:00 Temp 98.7 98.4 98.7 98.4 Pulse 76 58 Resp 16 18 18 B/P (MAP) 129/66 (87) 120/69 (86) Pulse Ox 95 94 O2 Delivery Room Air Room Air Room Air Room Air 03/13/18 03/13/18 03/13/18 03/13/18 03:38 04:44 07:00 08:00 Temp 98.2 98.2 Pulse 75 Resp 18 14 18 B/P (MAP) 124/77 (93) Pulse Ox 94 O2 Delivery Room Air Room Air Room Air Room Air 03/13/18 10:41 Temp 97.5 97.5 Pulse 89 Resp 18 B/P (MAP) 123/88 (100) Pulse Ox 94 O2 Delivery Room Air Intake and Output 03/12/18 03/12/18 03/13/18 15:00 23:00 07:00 Intake Total 2390 ml 2340 ml Output Total 300 ml 20 ml Balance 2090 ml 2320 ml LISSETTE GRIFFIN MD Mar 13, 2018 11:06
[2018-03-13] MEDS ORDERED: POTASSIUM CHLORIDE 20 MEQ TABLET.ER. PO ONE (12:00)
--- NOTE | 2018-03-13 12:27 | PDOC3 ---
Discharge Summary Date of Admission: Mar 05, 2018 Date of Discharge: Mar 13, 2018 Follow-Up: By telephone Admitting Diagnosis comment: discharge diagnosis S/P day# 6 ERCP (indicated a filling defect in the distal duct from a common duct calculus) POD #5 Cholecystectomy Biliary Cholic Cholelithiasis History of Present Illness History of Present Illness Pt. seen and examined Pt. 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 Delgado is a 47 old [sex] who presented with [ cholelithiasis ] CONDITION AT DISCHARGE: Improved Discharge Medications Current Medications Sodium Chloride 1,000 ml @ 1,000 mls/hr Q1H IV Last administered on 03/05/18 13:52; Start 03/05/18 at 13:37; Stop 03/05/18 at 14:36; Status DC Fentanyl Citrate (Fentanyl 2ml Vial) 50 mcg 1X ONCE IV Last administered on 13:52; Start 03/05/18 at 13:45; Stop 03/05/18 at 13:46; Status DC Famotidine (Pepcid Vial) 20 mg 1X ONCE IVP Last administered on 03/05/18 13: 51; Start 03/05/18 at 13:45; Stop 03/05/18 at 13:46; Status DC Iohexol (Omnipaque 300 Mg/ml) 75 ml 1X ONCE IV Last administered on 03/05/18at 13:45; Start 03/05/18 at 13:45; Stop 03/05/18 at 13:46; Status DC Ondansetron HCl (Zofran) 4 mg 1X ONCE IV Last administered on 03/05/18at 13:51 ; Start 03/05/18 at 13:45; Stop 03/05/18 at 13:47; Status DC Info (CONTRAST GIVEN -- Rx MONITORING) 1 each PRN DAILY PRN MC SEE COMMENTS Last administered on 03/06/18at 13:16; Start 03/05/18 at 14:00; Stop 03/07/18 at 13:59; Status DC Ondansetron HCl (Zofran) 4 mg PRN Q8HRS PRN IV NAUSEA/VOMITING; Start 03/05/18 at 17:00; Stop 03/06/18 at 16:59; Status DC Fentanyl Citrate (Fentanyl 2ml Vial) 50 mcg PRN Q2HR PRN IV PAIN Last administered on 03/06/18at 06:28; Start 03/05/18 at 17:00; Stop 03/06/18 at 16:59 ; Status DC Sodium Chloride 1,000 ml @ 100 mls/hr Q10H IV Last administered on 03/06/18at 05:55; Start 03/05/18 at 17:00; Stop 03/06/18 at 16:59; Status DC Piperacillin Sod/ Tazobactam Sod 3.375 gm/Sodium Chloride 50 ml @ 100 mls/hr Q6HRS IV Last administered on 03/13/18at 06:07; Start 03/05/18 at 17:15 Ondansetron HCl (Zofran) 4 mg PRN Q6HRS PRN IV NAUSEA/VOMITING; Start 03/06/18 at 07:30; Stop 03/07/18 at 07:29; Status DC Fentanyl Citrate (Fentanyl 2ml Vial) 25 mcg PRN Q5MIN PRN IV MILD PAIN; Start 03/06/18 at 07:30; Stop 03/07/18 at 07:29; Status DC Fentanyl Citrate (Fentanyl 2ml Vial) 50 mcg PRN Q5MIN PRN IV MODERATE TO SEVERE PAIN Last administered on 03/06/18at 15:04; Start 03/06/18 at 07:30; Stop 03/07/18 at 07:29; Status DC Morphine Sulfate (Morphine Sulfate) 1 mg PRN Q10MIN PRN IV SEVERE PAIN; Start 03/06/18 at 07:30; Stop 03/07/18 at 07:29; Status DC Ringer's Solution 1,000 ml @ 30 mls/hr Q24H IV Last administered on 03/06/18at 10:44; Start 03/06/18 at 07:21; Stop 03/06/18 at 19:20; Status DC Lidocaine HCl (Xylocaine-Mpf 1% 2ml Vial) 2 ml PRN 1X PRN ID PRIOR TO IV START ; Start 03/06/18 at 07:30; Stop 03/07/18 at 07:29; Status DC Hydromorphone HCl (Dilaudid) 0.5 mg PRN Q10MIN PRN IV SEV PAIN, Second choice; Start 03/06/18 at 07:30; Stop 03/07/18 at 07:29; Status DC Prochlorperazine Edisylate (Compazine) 5 mg PACU PRN PRN IV NAUSEA, MRX1; Start 03/06/18 at 07:30; Stop 03/07/18 at 07:29; Status DC Rocuronium [place] (Zemuron) 50 mg STK-MED ONCE .ROUTE ; Start 03/06/18 at 11:58 ; Stop 03/06/18 at 11:59; Status DC Fentanyl Citrate (Fentanyl 2ml Vial) 100 mcg STK-MED ONCE .ROUTE ; Start at 11:58; Stop 03/06/18 at 11:59; Status DC Glycopyrrolate (Robinul) 1 mg STK-MED ONCE .ROUTE ; Start 03/06/18 at 11:59; Stop 03/06/18 at 12:00; Status DC Sevoflurane (Ultane) 60 ml STK-MED ONCE IH ; Start 03/06/18 at 12:20; Stop 03/06 at 12:21; Status DC Dexamethasone Sodium Phosphate (Decadron) 20 mg STK-MED ONCE .ROUTE ; Start at 12:22; Stop 03/06/18 at 12:23; Status DC Propofol 20 ml @ As Directed STK-MED ONCE IV ; Start 03/06/18 at 12:22; Stop at 12:23; Status DC Lidocaine HCl (Lidocaine Pf 2% Vial) 5 ml STK-MED ONCE .ROUTE ; Start 03/06/18 at 12:22; Stop 03/06/18 at 12:23; Status DC Ketorolac Tromethamine (Toradol For Or Only) 30 mg STK-MED ONCE INJ ; Start at 12:22; Stop 03/06/18 at 12:23; Status DC Ondansetron HCl (Zofran) 4 mg STK-MED ONCE .ROUTE ; Start 03/06/18 at 12:22; Stop 03/06/18 at 12:23; Status DC Bupivacaine HCl/ Epinephrine Bitart (Marcaine-Epi 0.5%-[id number]) 50 ml STK-MED ONCE .ROUTE ; Start 03/06/18 at 11:26; Stop 03/06/18 at 12:27; Status DC Iohexol (Omnipaque 300 Mg/ml) 100 ml STK-MED ONCE .ROUTE ; Start 03/06/18 at 11: 26; Stop 03/06/18 at 12:27; Status DC Cellulose (Surgicel Hemostat 4x8) 1 each STK-MED ONCE .ROUTE ; Start 03/06/18 at 11:27; Stop 03/06/18 at 12:27; Status DC Glucagon (Glucagen) 1 mg STK-MED ONCE .ROUTE Last administered on 03/06/18at 13: 27; Start 03/06/18 at 12:21; Stop 03/06/18 at 13:22; Status DC Phenylephrine HCl (PHENYLEPHRINE in 0.9% NACL PF) 1 mg STK-MED ONCE IV ; Start 03/06/18 at 13:35; Stop 03/06/18 at 13:36; Status DC Propofol 20 ml @ As Directed STK-MED ONCE IV ; Start 03/06/18 at 13:48; Stop at 13:49; Status DC Oxycodone/ Acetaminophen (Percocet 5/325) 1 tab PRN Q4HRS PRN PO PAIN MILD Last administered on 03/10/18at 13:13; Start 03/06/18 at 14:15; Stop 03/11/18 at 15 :12; Status DC Oxycodone/ Acetaminophen (Percocet 5/325) 2 tab PRN Q4HRS PRN PO PAIN MODERATE TO SEVERE Last administered on 03/11/18at 15:09; Start 03/06/18 at 14:15; Stop 03/11/18 at 15:12; Status DC Polyethylene Glycol (miraLAX PACKET) 17 gm PRN DAILY PRN PO CONSTIPATION 1ST CHOICE Last administered on 03/11/18at 09:51; Start 03/06/18 at 16:00 Pantoprazole Sodium (Protonix) 40 mg DAILYAC PO Last administered on 03/06/18at 17:31; Start 03/06/18 at 16:30; Stop 03/08/18 at 10:01; Status DC Ringer's Solution 1,000 ml @ 50 mls/hr Q20H IV Last administered on 03/07/18at 13:29; Start 03/07/18 at 07:00; Stop 03/07/18 at 18:59; Status DC Fentanyl Citrate (Fentanyl 2ml Vial) 50 mcg PRN Q2HR PRN IV SEVERE PAIN Last administered on 03/10/18at 15:37; Start 03/07/18 at 05:00; Stop 03/10/18 at 15:59; Status DC Iohexol (Omnipaque 300 Mg/ml) 100 ml [employer] ONCE .ROUTE ; Start 03/07/18 at 12: 38; Stop 03/07/18 at 12:39; Status DC Ondansetron HCl (Zofran) 4 mg PRN Q6HRS PRN IV NAUSEA/VOMITING Last administered on 03/07/18at 17:10; Start 03/07/18 at 13:00; Stop 03/08/18 at 12:59 ; Status DC Fentanyl Citrate (Fentanyl 2ml Vial) 25 mcg PRN Q5MIN PRN IV MILD PAIN; Start 03/07/18 at 13:00; Stop 03/08/18 at 12:59; Status DC Fentanyl Citrate (Fentanyl 2ml Vial) 50 mcg PRN Q5MIN PRN IV MODERATE TO SEVERE PAIN; Start 03/07/18 at 13:00; Stop 03/08/18 at 12:59; Status DC Morphine Sulfate (Morphine Sulfate) 1 mg PRN Q10MIN PRN IV SEVERE PAIN; Start 03/07/18 at 13:00; Stop 03/08/18 at 12:59; Status DC Ringer's Solution 1,000 ml @ 100 mls/hr Q10H IV Last administered on at 13:40; Start 03/07/18 at 12:50; Stop 03/08/18 at 00:49; Status DC Lidocaine HCl (Xylocaine-Mpf 1% 2ml Vial) 2 ml 1X PRN PRN ID IV START; Start at 13:00; Stop 03/08/18 at 12:59; Status DC Hydromorphone HCl (Dilaudid) 0.5 mg PRN Q10MIN PRN IV SEV PAIN, Second choice; Start 03/07/18 at 13:00; Stop 03/08/18 at 12:59; Status DC Prochlorperazine Edisylate (Compazine) 5 mg PACU PRN PRN IV NAUSEA, MRX1; Start 03/07/18 at 13:00; Stop 03/08/18 at 12:59; Status DC Al Hydroxide/Mg Hydroxide (Mylanta Plus Xs) 30 ml PRN Q2HR PRN PO HEARTBURN / GAS; Start 03/07/18 at 20:30 Calcium Carbonate/ Glycine (Tums) 500 mg PRN AFTMEALHC PRN PO INDIGESTION Last administered on 03/13/18at 01:36; Start 03/07/18 at 20:30 Multi-Ingredient Mouthwash/Gargle (Gi Cocktail) 20 ml 1X ONCE SWSW ; Start at 21:00; Stop 03/07/18 at 21:01; Status DC Multi-Ingredient Mouthwash/Gargle (Gi Cocktail) 20 ml PRN Q15MIN PRN PO CHEST PAIN Last administered on 03/12/18at 11:06; Start 03/07/18 at 20:30 Diphenhydramine HCl (Benadryl) 25 mg PRN QHS PRN PO INSOMNIA; Start 03/07/18 at 20:30 Ondansetron HCl (Zofran) 4 mg PRN Q6HRS PRN IV NAUSEA/VOMITING 1ST CHOICE Last administered on 03/10/18at 22:04; Start 03/07/18 at 20:30 Prochlorperazine Edisylate (Compazine) 5 mg PRN Q6HRS PRN IV NAUSEA/VOMITING 2ND CHOICE Last administered on 03/11/18at 02:22; Start 03/07/18 at 20:30 Sodium Chloride 1,000 ml @ 100 mls/hr Q10H IV Last administered on 03/12/18 21 :33; Start 03/07/18 at 21:00 Pantoprazole Sodium (PROTONIX VIAL for IV PUSH) 40 mg DAILYAC IVP Last administered on 03/13/18 06:07; Start 03/09/18 at 10:30 Acetaminophen (Tylenol Supp) 650 mg PRN Q6HRS PRN IN MILD PAIN / TEMP Last administered on 03/08/18at 21:11; Start 03/08/18 at 16:45 Saliva Substitute (Biotene Moisturizing Mouth) 2 spray PRN Q15MIN PRN PO DRY MOUTH Last administered on 03/09/18 05:15; Start 03/09/18 at 03:00 Iohexol (Omnipaque 300 Mg/ml) 75 ml 1X ONCE IV Last administered on 03/09/18at 10:47; Start 03/09/18 at 10:30; Stop 03/09/18 at 10:31; Status DC Potassium Chloride (Klor-Con) 40 meq 1X ONCE PO ; Start 03/09/18 at 12:30; Stop 03/09/18 at 14:22; Status DC Potassium Chloride/Water 100 ml @ 100 mls/hr Q1H IV Last administered on 19:10; Start 03/09/18 at 15:00; Stop 03/09/18 at 18:59; Status DC Neomycin/ Polymyxin/ Bacitracin (Triple Antibiotic Ointment) 1 pkt PRN BID TP ; Start 03/09/18 at 16:00 Docusate Sodium (Colace) 100 mg DAILY PO Last administered on 03/13/18 09:20; Start 03/11/18 at 09:00 Lactobacillus Rhamnosus (Culturelle) 1 cap BID PO Last administered on 09:20; Start 03/11/18 at 21:00 Oxycodone/ Acetaminophen (Percocet 5/325) 2 tab PRN Q6HRS PRN PO PAIN MODERATE TO SEVERE Last administered on 03/13/18 09:31; Start 03/11/18 at 15:15 Potassium Chloride (Klor-Con) 40 meq 1X ONCE PO Last administered on 03/12/18at 13:35; Start 03/12/18 at 12:00; Stop 03/12/18 at 12:01; Status DC Potassium Chloride (Klor-Con) 20 meq 1X ONCE PO ; Start 03/13/18 at 12:00; Stop 03/13/18 at 12:01; Status DC Lidocaine HCl (Lidocaine HCl 2% Abboject) 100 mg STK-MED ONCE .ROUTE ; Start at 07:00; Stop 03/13/18 at 08:34; Status DC Succinylcholine Chloride (Anectine) 200 mg STK-MED ONCE .ROUTE ; Start 03/05/18 at 07:00; Stop 03/13/18 at 08:34; Status DC Active Scripts Active Reported Tums (Calcium Carbonate) 200 Mg Tab.chew 200 Mg PO PRN PRN Milk Of Magnesia (Magnesium Hydroxide) 400 Mg/5 Ml Oral.susp 400 Mg PO PRN Dulcolax (Bisacodyl) 5 Mg Tablet.dr 5 Mg PO PRN DAILY PRN Allopurinol 100 Mg Tablet 1 Tab PO DAILY Claritin (Loratadine) 10 Mg Tablet 1 Tab PO DAILY Mobic (Meloxicam) 7.5 Mg Tablet 1 Tab PO BID Nortriptyline Hcl 75 Mg Capsule 75 Mg PO BID Vital Signs Vital Signs Date Time Temp Pulse Resp B/P (MAP) Pulse Ox O2 Delivery O2 Flow Rate FiO2 03/13/18 10:41 97.5 89 18 123/88 (100) 94 Room Air 97.5 Labs Laboratory Tests Test 03/12/18 04:10 03/12/18 04:15 03/13/18 03:40 White Blood Count 6.4 x10^3/uL (4.0-11.0) 6.9 x10^3/uL (4.0-11.0) Red Blood Count 4.20 x10^6/uL (4.30-5.70) 4.23 x10^6/uL (4.30-5.70) Hemoglobin 13.1 g/dL (13.0-17.5) 13.3 g/dL (13.0-17.5) Hematocrit 37.9 % (39.0-53.0) 38.6 % (39.0-53.0) Mean Corpuscular Volume 90 fL (79-100) 91 fL (79-100) Mean Corpuscular Hemoglobin 31 pg (25-35) 32 pg (25-35) Mean Corpuscular Hemoglobin Concent 35 g/dL (31-37) 35 g/dL (31-37) Red Cell Distribution Width 13.9 % (11.5-14.5) 13.8 % (11.5-14.5) Platelet Count 198 x10^3/uL (140-400) 187 x10^3/uL (140-400) Neutrophils (%) (Auto) 67 % (31-73) 62 % (31-73) Lymphocytes (%) (Auto) 20 % (24-48) 24 % (24-48) Monocytes (%) (Auto) 10 % (0-9) 11 % (0-9) Eosinophils (%) (Auto) 2 % (0-3) 3 % (0-3) Basophils (%) (Auto) 1 % (0-3) 1 % (0-3) Neutrophils # (Auto) 4.3 x10^3uL (1.8-7.7) 4.3 x10^3uL (1.8-7.7) Lymphocytes # (Auto) 1.3 x10^3/uL (1.0-4.8) 1.6 x10^3/uL (1.0-4.8) Monocytes # (Auto) 0.7 x10^3/uL (0.0-1.1) 0.7 x10^3/uL (0.0-1.1) Eosinophils # (Auto) 0.1 x10^3/uL (0.0-0.7) 0.2 x10^3/uL (0.0-0.7) Basophils # (Auto) 0.0 x10^3/uL (0.0-0.2) 0.0 x10^3/uL (0.0-0.2) Sodium Level 138 mmol/L (136-145) 141 mmol/L (136-145) Potassium Level 3.2 mmol/L (3.5-5.1) 3.6 mmol/L (3.5-5.1) Chloride Level 102 mmol/L (98-107) 106 mmol/L (98-107) Carbon Dioxide Level 26 mmol/L (21-32) 30 mmol/L (21-32) Anion Gap 10 (6-14) 5 (6-14) Blood Urea Nitrogen 5 mg/dL (8-26) 6 mg/dL (8-26) Creatinine 0.9 mg/dL (0.7-1.3) 1.0 mg/dL (0.7-1.3) Estimated GFR (Cockcroft-Gault) 89.7 79.4 BUN/Creatinine Ratio 6 (6-20) 6 (6-20) Glucose Level 123 mg/dL (70-99) 122 mg/dL (70-99) Calcium Level 8.4 mg/dL (8.5-10.1) 8.4 mg/dL (8.5-10.1) Total Bilirubin 0.8 mg/dL (0.2-1.0) 0.6 mg/dL (0.2-1.0) Aspartate Amino Transf (AST/SGOT) 13 U/L (15-37) 18 U/L (15-37) Alanine Aminotransferase (ALT/SGPT) 84 U/L (16-63) 67 U/L (16-63) Alkaline Phosphatase 130 U/L (46-116) 124 U/L (46-116) Total Protein 6.5 g/dL (6.4-8.2) 6.6 g/dL (6.4-8.2) Albumin 2.6 g/dL (3.4-5.0) 2.6 g/dL (3.4-5.0) Albumin/Globulin Ratio 0.7 (1.0-1.7) 0.7 (1.0-1.7) Amylase Level 27 U/L (25-115) Lipase 135 U/L (73-393) Laboratory Tests Test 03/13/18 03:40 White Blood Count 6.9 x10^3/uL (4.0-11.0) Red Blood Count 4.23 x10^6/uL (4.30-5.70) Hemoglobin 13.3 g/dL (13.0-17.5) Hematocrit 38.6 % (39.0-53.0) Mean Corpuscular Volume 91 fL (79-100) Mean Corpuscular Hemoglobin 32 pg (25-35) Mean Corpuscular Hemoglobin Concent 35 g/dL (31-37) Red Cell Distribution Width 13.8 % (11.5-14.5) Platelet Count 187 x10^3/uL (140-400) Neutrophils (%) (Auto) 62 % (31-73) Lymphocytes (%) (Auto) 24 % (24-48) Monocytes (%) (Auto) 11 % (0-9) Eosinophils (%) (Auto) 3 % (0-3) Basophils (%) (Auto) 1 % (0-3) Neutrophils # (Auto) 4.3 x10^3uL (1.8-7.7) Lymphocytes # (Auto) 1.6 x10^3/uL (1.0-4.8) Monocytes # (Auto) 0.7 x10^3/uL (0.0-1.1) Eosinophils # (Auto) 0.2 x10^3/uL (0.0-0.7) Basophils # (Auto) 0.0 x10^3/uL (0.0-0.2) Sodium Level 141 mmol/L (136-145) Potassium Level 3.6 mmol/L (3.5-5.1) Chloride Level 106 mmol/L (98-107) Carbon Dioxide Level 30 mmol/L (21-32) Anion Gap 5 (6-14) Blood Urea Nitrogen 6 mg/dL (8-26) Creatinine 1.0 mg/dL (0.7-1.3) Estimated GFR (Cockcroft-Gault) 79.4 BUN/Creatinine Ratio 6 (6-20) Glucose Level 122 mg/dL (70-99) Calcium Level 8.4 mg/dL (8.5-10.1) Total Bilirubin 0.6 mg/dL (0.2-1.0) Aspartate Amino Transf (AST/SGOT) 18 U/L (15-37) Alanine Aminotransferase (ALT/SGPT) 67 U/L (16-63) Alkaline Phosphatase 124 U/L (46-116) Total Protein 6.6 g/dL (6.4-8.2) Albumin 2.6 g/dL (3.4-5.0) Albumin/Globulin Ratio 0.7 (1.0-1.7) Allergies Allergies Coded Allergies Type Severity Reaction Last Updated Verified ranitidine Adverse Reaction Mild headache 03/07/18 Yes Disposition/Orders: Other (back to fpc) Patient Instructions d/c planning 36 min LISSETTE GRIFFIN MD Mar 13, 2018 12:27
--- NOTE | 2018-03-13 12:29 | DISCH ---
DISCHARGE INSTRUCTIONS Condition on Discharge Condition on Discharge: Stable Activity After Discharge Activity Instructions for Disc: Activity as tolerated Bathing Instructions: Shower-keep dressing dry Lifting Instructions after Dis: No heavy lifting, No pulling or pushing, Do not lift >10 pounds Exercise Instruction after Dis: Walk 10 min, 3 x per day Weight Bearing Status after Di: Full weight bearing Diet after Discharge Diet after Discharge: Renal Non-Dialysis Wound Incision Care Wound/Incision Care: Reinforce dressing PRN Checks after Discharge Checks after discharge: Check blood press - daily LISSETTE GRIFFIN MD Mar 13, 2018 12:29
--- NOTE | 2018-03-13 13:47 | PDOC ---
Subjective: Subjective: Feeling much better, would like to thank Dr. Richards. Tolerating PO w/o n/v or increased abd pain. Objective: Objective: Note DC orders. Vital Signs: Vital Signs Date Time Temp Pulse Resp B/P (MAP) Pulse Ox O2 Delivery O2 Flow Rate FiO2 03/13/18 10:41 97.5 89 18 123/88 (100) 94 Room Air 97.5 Labs: Laboratory Tests Test 03/13/18 03:40 White Blood Count 6.9 x10^3/uL Red Blood Count 4.23 x10^6/uL Hemoglobin 13.3 g/dL Hematocrit 38.6 % Mean Corpuscular Volume 91 fL Mean Corpuscular Hemoglobin 32 pg Mean Corpuscular Hemoglobin Concent 35 g/dL Red Cell Distribution Width 13.8 % Platelet Count 187 x10^3/uL Neutrophils (%) (Auto) 62 % Lymphocytes (%) (Auto) 24 % Monocytes (%) (Auto) 11 % Eosinophils (%) (Auto) 3 % Basophils (%) (Auto) 1 % Neutrophils # (Auto) 4.3 x10^3uL Lymphocytes # (Auto) 1.6 x10^3/uL Monocytes # (Auto) 0.7 x10^3/uL Eosinophils # (Auto) 0.2 x10^3/uL Basophils # (Auto) 0.0 x10^3/uL Sodium Level 141 mmol/L Potassium Level 3.6 mmol/L Chloride Level 106 mmol/L Carbon Dioxide Level 30 mmol/L Anion Gap 5 Blood Urea Nitrogen 6 mg/dL Creatinine 1.0 mg/dL Estimated GFR (Cockcroft-Gault) 79.4 BUN/Creatinine Ratio 6 Glucose Level 122 mg/dL Calcium Level 8.4 mg/dL Total Bilirubin 0.6 mg/dL Aspartate Amino Transf (AST/SGOT) 18 U/L Alanine Aminotransferase (ALT/SGPT) 67 U/L Alkaline Phosphatase 124 U/L Total Protein 6.6 g/dL Albumin 2.6 g/dL Albumin/Globulin Ratio 0.7 PE: GEN: NAD, was resting LUNGS: CTAB HEART: RRR ABD: soft, non-distended, some periumbilical discomfort NEURO/PSYCH: A & O 3 A/P: Choledocholithiasis s/p ERCP - labs/symptoms improved -- DC per primary. ALESIA CHANDLER Mar 13, 2018 13:47
[2018-03-13 15:00] VITALS: BP 112/70
== END 2018-03-13 16:40 | DRG 418 ==
LOC: EEVIPCON 12:50 → ER 12:50 → 4 NORTH 16:57
PROVIDERS: ADMIT Internal Medicine; ATTEND Internal Medicine
PROC: BF131ZZ Fluoroscopy of Gallbladder and Bile Ducts using Low Osmolar Contrast (ICD-10-PCS; 2018-03-06)
PROC: 0FT44ZZ Resection of Gallbladder, Percutaneous Endoscopic Approach (ICD-10-PCS; principal; 2018-03-06 12:45)
PROC: 0FC98ZZ Extirpation of Matter from Common Bile Duct, Via Natural or Artificial Opening Endoscopic (ICD-10-PCS; 2018-03-07)
DX: K80.70 Calculus of gallbladder and bile duct without cholecystitis without obstruction (principal); K91.89 Other postprocedural complications and disorders of digestive system; N20.0 Calculus of kidney; K76.0 Fatty (change of) liver, not elsewhere classified; M10.9 Gout, unspecified; K21.9 Gastro-esophageal reflux disease without esophagitis; K57.30 Diverticulosis of large intestine without perforation or abscess without bleeding; K59.00 Constipation, unspecified; Y83.8 Other surgical procedures as the cause of abnormal reaction of the patient, or of later complication, without mention of misadventure at the time of the procedure; Z88.8 Allergy status to other drugs, medicaments and biological substances; Z82.49 Family history of ischemic heart disease and other diseases of the circulatory system; Z87.442 Personal history of urinary calculi; Z79.891 Long term (current) use of opiate analgesic; Y92.89 Other specified places as the place of occurrence of the external cause
CPT/HCPCS: 36415; 71045; 74177; 74300; 74328; 76705; 80053; 80307; 81001; 82150; 82962; 83605; 83690; 84484; 85014; 85018; 85025; 85027; 85610; 86850; 86900; 86901; 87040; 87641; 88304; 93005; 96361; 96365; 96375; 96376; C1726; C1757; C9113; J0330; J0780; J1100; J1610; J1885; J2001; J2370; J2405; J2543; J2704; J3010; J3480; J3490; J7030; J7120; Q9967; S0028; 99285-25; G0479